=== PATIENT | female | born 1960 | race Caucasian/White ===

== ENCOUNTER 2016-03-01 09:26 | Day surgery (SDC) | payer OTHER ==
[2016-02-29 09:03] VITALS: BMI 36.9
[~2016-03-01 09:26] MED LIST: LACTATED RINGERS 1,000 ML IV SCH
[2016-03-01 09:36] VITALS: RESP 16; TEMP 86.3
[2016-03-01] MEDS ORDERED: LIDOCAINE 1% 20 ML VIAL (10MG/ML) FOR IV START INTRADERMA ONE (09:42)
[2016-03-01 09:43] LABS: Glucose,Whole Blood 207 mg/dL (75-99)
[2016-03-01] MEDS ORDERED: BUPIVACAINE (PF) 0.5% 30 ML VIAL ONE (09:48)
[2016-03-01] MEDS ORDERED: MIDAZOLAM 2 MG/2 ML VIAL ONE (09:48)
[2016-03-01] MEDS ORDERED: TRIAMCINOLONE ACETONIDE 40 MG/ML 1 ML VIAL ONE (09:48)
[2016-03-01] MEDS ORDERED: fentaNYL (PF) 50 MCG/ML 2 ML AMP ONE (09:48)
[2016-03-01] MEDS ORDERED: IV FLUID CONTINUATION 1,000 ML IV ONE (10:22)
--- NOTE | 2016-03-01 10:25 | FL ---
EXAMINATION TYPE: FL guided pain mgmt statistic DATE OF EXAM: 03/01/2016 10:22 AM HISTORY: Pain 15sec fluoro time, 5 images scanned.
[2016-03-01 10:30] LABS: Glucose,Whole Blood 176 mg/dL (75-99)
--- NOTE | 2016-03-01 10:48 | P.PCN ---
Date of Procedure: 03/01/16 Anesthesia: MAC Surgeon: Eric Serra Pathology: none sent Condition: stable Disposition: PACU Description of Procedure: PREOPERATIVE DIAGNOSIS: L2-L3, L3-L4, L4-L5, and L5-S1 spondylosis without myelopathy and facet arthropathy. POSTOPERATIVE DIAGNOSIS: L2-L3, L3-L4, L4-L5, and L5-S1 spondylosis without myelopathy and facet arthropathy. PROCEDURE DESCRIPTION: Patient presents for L2, L3, L4 and L5 diagnostic medial branch blocks under fluoroscopic guidance. The procedure is performed using fluoroscopic guidance during needle placement to assure proper position and maximize safety. ANESTHESIA: Local with 1% lidocaine. Conscious sedation with Versed/fentanyl. EBL: Minimal PROCEDURE INDICATION: Patient with lumbar facet arthropathy signs and symptoms, here for diagnostic medial branch block. Pt does not take any blood thinning medications. PROCEDURE DESCRIPTION: The patient was seen and identified in the preoperative area. Risks, benefits, complications, and alternatives were discussed with the patient (including but not limited to incomplete pain relief, bleeding, infection, nerve damage, and allergies to medications), the patient agreed to proceed with the procedure and signed the consent after all questions were answered. Patient was taken to the OR and time out was completed to verify proper patient, position, laterality of pain, and allergies. Pt was placed in the prone position and a pillow was placed under the abdomen to reduce lumbar lordosis. The lumbosacral area was prepped and draped in the usual sterile fashion. Using oblique fluoroscopy, the eye of the "Carlitos dog" of right L3 vertebral body, which corresponds to the path of the medial branch originating from the level above, which is L2 in this case, was identified. Subsequently, a 22-gauge 5-inch spinal needle was inserted under fluoroscopic guidance toward the eye of the "Carlitos dog" of the right L3 vertebral body, corresponding to the junction of the superior articular process and the transverse process of the pedicle of the same level. After needle tip confirmation on lateral view and after negative aspiration for CSF and blood and without paresthesias, 1 mL of a 8 ml solution of 0.5% preservative-free bupivacaine and 40 mg Kenalog was injected. Subsequently the needle was withdrawn intact and the same procedure was repeated for the right L3, right L4, right L5, left L2, left L3, left L4, and left L5 medial branches which together with right L3 medial branch correspond to the sensory innervation of the bilateral L3-L4, L4-L5, and L5-S1 facet joints. Needle was withdrawn intact after each injection. At the end of the procedure, the skin was cleansed and bandages were applied. COMPLICATIONS: None. DISPOSITION/PLAN: The patient taken to the recovery area after the procedure in a stable condition for observation. Patient was reexamined prior to discharge and there were no issues. Patient was discharged home, accompanied by an adult, after meeting discharged criteria. Discharge instructions were give to the patient by the staff. Patient was specifically instructed not to drive today and to rest for the rest of the day. Of note, the patient's fasting blood sugar was 209, and I decided to use only 40 mg Kenalog for this reason. Patient's starting BP was 203/103. I informed the patient in no uncertain terms that we will not do any further procedures for her at next visit if blood sugar >150 or systolic blood pressure >180. I informed patient regarding risks of stroke/NE during procedure secondary to pain with needle placement, and also risks of hyperglycemia with steroids. I then instructed patient to go to ER if she begins to have any symptoms of either , of which she verbalized understanding.
[2016-03-01 10:50] VITALS: BP 169/91; PULSE 90
== END 2016-03-01 11:01 | disposition home or self-care (01) ==
LOC: ORPAIN 09:26
PROVIDERS: ATTEND Anesthesiology
DX: G89.29 Other chronic pain (principal); M47.816 Spondylosis without myelopathy or radiculopathy, lumbar region; M46.96 Unspecified inflammatory spondylopathy, lumbar region; E11.9 Type 2 diabetes mellitus without complications; I10 Essential (primary) hypertension; F32.9 Major depressive disorder, single episode, unspecified; Z79.1 Long term (current) use of non-steroidal anti-inflammatories (NSAID); Z79.899 Other long term (current) drug therapy
CPT/HCPCS: 64493; 64494; 64495; J2250; J3301; J3010

== ENCOUNTER 2016-05-24 12:06 | Day surgery (SDC) | payer OTHER ==
[2016-05-23 09:47] VITALS: BMI 37.5
[2016-05-24 13:17] VITALS: TEMP 97.8
[2016-05-24 13:28] LABS: Glucose,Whole Blood 177 mg/dL (75-99)
[2016-05-24] MEDS ORDERED: LIDOCAINE 1% 20 ML VIAL (10MG/ML) FOR IV START INTRADERMA ONE (13:28)
[2016-05-24] MEDS ORDERED: TRIAMCINOLONE ACETONIDE 40 MG/ML 1 ML VIAL ONE (14:16)
[2016-05-24] MEDS ORDERED: fentaNYL (PF) 50 MCG/ML 2 ML AMP ONE ×2 (14:16)
[2016-05-24] MEDS ORDERED: MIDAZOLAM 2 MG/2 ML VIAL ONE (14:16)
[2016-05-24] MEDS ORDERED: BUPIVACAINE (PF) 0.5% 30 ML VIAL ONE (14:16)
--- NOTE | 2016-05-24 14:58 | P.PCN ---
Date of Procedure: 05/24/16 Procedure(s) Performed: PREOPERATIVE DIAGNOSIS: 1-Lumbar Spondylosis with Facet Arthropathy without myelopathy. 2- Lumber degenerative disc disease POSTOPERATIVE DIAGNOSIS: 1- Lumbar Spondylosis with Facet Arthropathy without myelopathy. 2- Lumber degenerative disc disease PROCEDURES : Left Radiofrequency thermocoagulation L2-3 ,, L3-L4, L4-L5, and L5 -S1 medial branch, with fluoroscopic guidance ANESTHESIA: IV sedation with versed 2 mg and fentaneyl 150 mcg and local infiltration with lidocaine 1% 6 ml EBL: Minimal PROCEDURE INDICATION: The patient with low back pain secondary to lumbar facet arthropathy who had more than 50% relief of her pain with previous diagnostic lumbar medial branch block with bupivacaine. PROCEDURE DESCRIPTION / TECHNIQUE: The patient was seen and identified in the preoperative area. Risks, benefits, complications, including but not limited to risk of infection ,bleeding , allergic reactions to the medications and no complete pain releife , and alternatives were discussed with the patient, the patient agreed to proceed with the procedure and signed the consent. IV was started. Vital signs remained stable throughout the procedure. Patient was taken to the OR and time out was completed. The patient was placed in the prone position on the procedure table. The lumber area was prepped and draped in the usual sterile fashion. . Vital signs were closely monitored during the procedure .IV sedation was used during the procedure to decrease patients anxiety. Using AP and then oblique fluoroscopy, the ``eye of the Carlitos dog corresponding to the connection between the superior and transverse articular processes of Left L2 ,L3, L4, and L5 were identified, marked, and localized with 1% lidocaine. Subsequently, a [id number] radiofrequency cannula with a 10-mm active tip was advanced guided by fluoroscopy to each of the ``eyes of the Carlitos dog at Left L2 , L3, L4, and L5. Each site then underwent sensory testing at 50 Hz and 0 to 1 volt and motor testing at 2.5 Hz and 0 to 3 volt with local stimulation, but no radicular symptoms down the legs. Thereafter the Left L2-3 , L3-4, L4-5, and L5-S1 sites underwent radiofrequency thermocoagulation at 80 degrees celsius for 90 seconds after injecting 0.5 ml of PF lidocaine 1%. then After the thermocoagulation done , 1 ml of the block solution containing Kenalog 40 mg and 4 ml of marain 0.5% was injected at the Left L2-3 , L3-4 , L4-5 , and L5-S1, levels after negative aspiration of CSF and blood and with no paresthesias. Cannulas were retracted while injecting lidocaine 1% until the needle is out. At the end of the procedure, the skin was cleansed and bandages were applied. COMPLICATIONS: No acute complications. DISPOSITION / PLANS: The patient was placed in a supine position and transferred to the recovery area in a stable condition for observation and was discharged from the recovery room after meeting discharge criteria. Home discharge instructions given to the patient by the staff. The patient was reexamined prior to discharge. The patient will schedule a follow up in the clinic in 2-4 weeks.
[2016-05-24] MEDS ORDERED: HYDROmorphone 1 MG/ML 1 ML SYRINGE IVP STA (15:01)
[2016-05-24] MEDS ORDERED: KETOROLAC 30 MG/ML 1 ML VIAL IVP STA (15:01)
[2016-05-24 15:07] VITALS: PULSE 75; RESP 16
[2016-05-24 15:38] VITALS: BP 143/77
[2016-05-24] MEDS ORDERED: IV FLUID CONTINUATION 1,000 ML IV ONE (15:41)
--- NOTE | 2016-05-24 16:18 | FL ---
3 Fluoroscopy INDICATION: Pain FINDINGS: Fluoroscopy time: 22 seconds. Images obtained: 0. IMPRESSIONS: 1. Documentation of fluoroscopy.
== END 2016-05-24 15:51 | disposition home or self-care (01) ==
LOC: ORPAIN 12:06
PROVIDERS: ATTEND Specialist
DX: M47.816 Spondylosis without myelopathy or radiculopathy, lumbar region (principal); M46.96 Unspecified inflammatory spondylopathy, lumbar region; M51.36 Other intervertebral disc degeneration, lumbar region
CPT/HCPCS: 64635; 64636; 99152; 99153; J2250; J3301; J3010; J1885; J1170

== ENCOUNTER 2016-07-05 08:27 | Day surgery (SDC) | payer OTHER ==
[2016-07-05] MEDS ORDERED: LIDOCAINE 1% 20 ML VIAL (10MG/ML) FOR IV START INTRADERMA ONE (08:48)
[2016-07-05] MEDS ORDERED: LACTATED RINGERS 1,000 ML IV SCH (09:00)
[2016-07-05 09:05] VITALS: TEMP 96.6
[2016-07-05 09:07] LABS: Glucose,Whole Blood 232 mg/dL (75-99)
[2016-07-05] MEDS ORDERED: BUPIVACAINE (PF) 0.5% 30 ML VIAL ONE (09:45)
[2016-07-05] MEDS ORDERED: MIDAZOLAM 2 MG/2 ML VIAL ONE (09:45)
[2016-07-05] MEDS ORDERED: fentaNYL (PF) 50 MCG/ML 2 ML AMP ONE (09:45)
--- NOTE | 2016-07-05 10:19 | P.PCN ---
Date of Procedure: 07/05/16 Preoperative Diagnosis: Lumbar spondylosis without myelopathy Postoperative Diagnosis: Same as above Procedure(s) Performed: Right lumbar medial branch radiofrequency ablation under fluoroscopic guidance Implants: Anesthesia: other (Moderate sedation) Surgeon: Daniel Valdes Pathology: none sent Condition: stable Disposition: PACU Indications for Procedure: Operative Findings: Description of Procedure: The patient was seen in the preoperative holding area consent was obtained then she was brought into the procedure room and placed in prone position. Skin was prepped with ChloraPrep and draped in a sterile manner. Lidocaine 1% was used to numb the skin up at the target points that were chosen as follows: For the L5 -S1 level which corresponds to the dorsal ramus of L5 the target point was at the superior medial aspect of the sacral ala on the right side of the spine on the AP view of fluoroscopy. And for the L2-L3 and L4 medial branches the target points were the connection between the transverse process and the superior articular process of L3 ,L4 ,and L5 vertebra respectively on the right oblique view of fluoroscopy. I used 18-gauge 150 mm in length with 10 mm curved active tip radiofrequency ablation needles for this procedure. AP, oblique, and lateral views of fluoroscopy were used to verify needle tip is position. Motor stimulation showed only local twitches of these needles with no radiation of twitching to the right lower extremity or to the groin anteriorly. Then I injected 1 mL of Marcaine 0.5% in each needle after that radiofrequency ablation started for 90 seconds at 80C and after the first session was done the needles were withdrawn by 1 or 2 mm and the bevels were turned 180 and then another session of ablation was started for 90 seconds at 80C. I did not use any steroids for this procedure today because of the patient's preop blood sugar was high at 230 mg/dL. Patient tolerated procedure well.
[2016-07-05] MEDS ORDERED: IV FLUID CONTINUATION 1,000 ML IV ONE (10:25)
[2016-07-05 10:34] LABS: Glucose,Whole Blood 220 mg/dL (75-99)
--- NOTE | 2016-07-05 10:57 | FL ---
EXAMINATION TYPE: FL guided pain mgmt statistic DATE OF EXAM: 07/05/2016 10:17 AM HISTORY: Pain RIGHT LUMBAR RF, 13 SEC FL TIME, 3 IMAGES SCANNED, .
[2016-07-05 11:04] VITALS: BP 154/76; PULSE 61; RESP 18
== END 2016-07-05 11:11 | disposition home or self-care (01) ==
LOC: ORPAIN 08:27
PROVIDERS: ATTEND Anesthesiology
DX: M47.816 Spondylosis without myelopathy or radiculopathy, lumbar region (principal)
CPT/HCPCS: 64635; 64636 ×3; 99152; J2250; J3010

== ENCOUNTER 2016-07-19 10:49 | Emergency (ER) | payer OTHER ==
--- NOTE | 2016-07-19 11:30 | ED ---
General Adult HPI - General Chief complaint: Recheck/Abnormal Lab/Rx Stated complaint: Lost Voice Time Seen by Provider: 07/19/16 11:12 Source: patient Mode of arrival: ambulatory Limitations: no limitations - History of Present Illness Initial comments: The patient is a 55-year-old female who presents to the ED with a chief complaint of dry mouth and loss of voice. The patient states that her symptoms have been present over the course the past 4 days. She states that she was started on clonidine recently to help with insomnia. The patient states that she has had chronic and persistent insomnia and that her PCP thought that this medication might help with her symptoms. The patient started this medication approximately 5 days ago. She states that she is concerned that this medication may be the cause of the symptoms that brought her into the ED today. The patient denies any cough. She denies any congestion. She denies any fevers or chills. The patient states that she has had hoarseness and loss of voice in the past associated with a cold but that her symptoms typically resolved within a day or two. She states the only recent surgery that she had was an operation on her lower back. The patient has had no history of thyroid problems nor has she had any prior thyroid operations. - Related Data Home Medications Medication Instructions Recorded Confirmed QUEtiapine [SEROquel] 400 mg PO HS 05/25/15 07/19/16 Carvedilol [Coreg] 25 mg PO BID 08/23/15 07/19/16 Suvorexant [Belsomra] 10 mg PO HS 08/23/15 07/19/16 tiZANidine [Zanaflex] 4 mg PO TID 08/23/15 07/19/16 Naproxen 500 mg PO Q12HR 11/16/15 07/19/16 Chlorthalidone [Hygroton] 25 mg PO QAM 01/10/16 07/19/16 Lisinopril 40 mg PO QAM 01/10/16 07/19/16 Sertraline [Zoloft] 25 mg PO QAM 01/10/16 07/19/16 Ergocalciferol (Vitamin D2) 50,000 unit PO DAILY 05/23/16 07/19/16 [Vitamin D2] Glimepiride [Amaryl] 2 mg PO AC-BRKFST 05/23/16 07/19/16 hydrALAZINE HCL [Apresoline] 25 mg PO BID 05/23/16 07/19/16 metFORMIN HCL [Glucophage] 500 mg PO BID 05/23/16 07/19/16 Allergies Allergy/AdvReac Type Severity Reaction Status Date / Time No Known Allergies Allergy Verified 07/19/16 11:14 Review of Systems ROS Statement: Those systems with pertinent positive or pertinent negative responses have been documented in the HPI. ROS Other: All systems not noted in ROS Statement are negative. Constitutional: Denies: fever, chills, weakness Eyes: Denies: vision change ENT: Reports: throat pain, other (vocal hoarseness and loss of voice). Denies: ear pain, dental pain, hearing loss, epistaxis, congestion Respiratory: Denies: cough, dyspnea, wheezes, hemoptysis, stridor Cardiovascular: Denies: chest pain, palpitations, dyspnea on exertion, orthopnea , edema, syncope Endocrine: Denies: fatigue Gastrointestinal: Denies: abdominal pain, nausea, vomiting, diarrhea, constipation Genitourinary: Denies: urgency, dysuria, frequency, hematuria Musculoskeletal: Denies: back pain Skin: Denies: rash, lesions Neurological: Denies: headache, weakness Psychiatric: Denies: anxiety, depression Past Medical History Past Medical History: Chest Pain / Angina, Diabetes Mellitus, Hypertension, Musculoskeletal Disorder, Osteoarthritis (OA), Pulmonary Embolus (PE), Rheumatoid Arthritis (RA), Vascular Disorder Additional Past Medical History / Comment(s): PE in Left lung d/t a right DVT 2007. ANEMIA. HEART MURMUR. CHRONIC BACK PAIN. RAYNAUDS. Chronic insomnia. SOB. 2 diabetes 08/29/15. Ddd chronic back pain. Multiple sclerosis History of Any Multi-Drug Resistant Organisms: None Reported Past Surgical History: Adenoidectomy, Cholecystectomy, Tonsillectomy, Tubal Ligation Additional Past Surgical History / Comment(s): CORY FUNDOPLASTY. REPAIR OF HOLE IN DIAPHRAGM. EGD. PAIN CINIC PROCEDURE Past Anesthesia/Blood Transfusion Reactions: No Reported Reaction Additional Past Anesthesia/Blood Transfusion Reaction / Comment(s): PT ADOPTED- FAMILY HX UNKNOWN Past Psychological History: Anxiety, Bipolar Additional Psychological History / Comment(s): taking stress management class and grief and loss class Smoking Status: Never smoker Past Alcohol Use History: None Reported Additional Past Alcohol Use History / Comment(s): Patient is a lifelong nonsmoker. She denies any medical marijuana, marijuana, street drug or alcohol use. She lives at home with her and [id number]. Past Drug Use History: None Reported - Past Family History Father Family Medical History: Unable to Obtain Additional Family Medical History / Comment(s): PT ADOPTED-FAMILY HX UNKNOWN Son(s) Additional Family Medical History / Comment(s): Patient has 3 children and 2 history of palsy. One child has no major medical problems. General Exam Limitations: no limitations General appearance: alert, in no apparent distress Head exam: Present: atraumatic, normocephalic Eye exam: Present: normal appearance, PERRL, EOMI Pupils: Present: normal accommodation ENT exam: Present: normal exam, normal oropharynx, mucous membranes dry, TM's normal bilaterally, normal external ear exam Neck exam: Present: normal inspection, full ROM. Absent: tenderness, meningismus, lymphadenopathy, thyromegaly Respiratory exam: Present: normal lung sounds bilaterally. Absent: respiratory distress, wheezes, rales, rhonchi, stridor Cardiovascular Exam: Present: regular rate, normal rhythm GI/Abdominal exam: Present: soft. Absent: distended, tenderness, guarding, rebound Extremities exam: Present: normal inspection, full ROM Back exam: Present: normal inspection, full ROM Neurological exam: Present: alert, oriented X3 Psychiatric exam: Present: normal affect, normal mood Skin exam: Present: warm, dry, intact Course Vital Signs 07/19/16 10:52 Temperature 97.5 F L Pulse Rate 88 Respiratory 18 Rate Blood Pressure 208/107 O2 Sat by Pulse 97 Oximetry Medical Decision Making - Medical Decision Making Patient is a 55-year-old female who presents to ED with a chief complaint of loss of voice. She states that her symptoms of the present over the course the past 4 days. She started taking clonidine about 5 days ago. She is concerned that her symptoms may be related to this medication. Patient denies any congestion, cough. She does cite dry mouth. The patient does not have any symptoms suspicious for laryngitis. Will contact pharmacist regarding possibility of side effects that could be causing patient's symptoms. 11:50 AM Spoke with Pharmacist who indicates that xerostomia is a common side effect of clonidine. I suspect that this is likely what is causing the patient's symptoms. I counseled the patient to stop taking clonidine until she is able follow up with her PCP and find an alternative medication for insomnia. I have counseled the patient that if she would like to continue taking her clonidine that she can try to use throat lozenges or chewing gum to try to stimulate salivary flow. However, I believe that stopping clonidine is the best option overall for the patient. I have encouraged the patient to return to the ED should she have any additional difficulty with swallowing or developed fever or chills. I've answered all the patient's questions to her satisfaction. Disposition Clinical Impression: Medication side effect, Xerostomia Disposition: HOME SELF-CARE Condition: Good Instructions: Clonidine (By mouth), Dry Mouth (ED) Additional Instructions: The symptoms that brought you into the ED today are likely secondary to clonidine, the medication that you're currently taking. This can cause you to have decreased production of saliva. This is likely the cause of your hoarse voice and difficulty with swallowing. I recommend that you discontinue this medication until you're able to follow up with your primary care physician. Once you follow up with your primary care physician, you can discuss other potential medical options to treat her insomnia. If you would like to continue on this medication, I would recommend that you try using throat lozenges or chewing gum to try to stimulate salivary flow. Please return to the ED should your symptoms worsen. Referrals: Mimi Solomon III, MD [Primary Care Provider] - 1-2 days (Please follow up with Dr. Solomon regarding your visit to the ED today. He can help to adjust your medications to help minimize potential side effects) Time of Disposition: 11:50
[2016-07-19 12:01] VITALS: BP 200/99; PULSE 84; RESP 20; TEMP 98.9
== END 2016-07-19 12:01 | disposition home or self-care (01) ==
LOC: EC 10:49
DX: K11.7 Disturbances of salivary secretion (principal); T46.5X5A Adverse effect of other antihypertensive drugs, initial encounter; R68.2 Dry mouth, unspecified; I10 Essential (primary) hypertension; E11.9 Type 2 diabetes mellitus without complications; F31.9 Bipolar disorder, unspecified; F51.04 Psychophysiologic insomnia; M06.9 Rheumatoid arthritis, unspecified; F41.9 Anxiety disorder, unspecified; Z79.1 Long term (current) use of non-steroidal anti-inflammatories (NSAID); Z79.84 Long term (current) use of oral hypoglycemic drugs; Z79.899 Other long term (current) drug therapy
CPT/HCPCS: 99283

== ENCOUNTER 2016-08-27 14:56 | Inpatient (IN) | payer OTHER ==
[2016-08-27] MEDS ORDERED: ASPIRIN 81 MG CHEW PO STA (15:24)
--- NOTE | 2016-08-27 15:28 | ED ---
Chest Pain HPI - General Chief Complaint: Chest Pain Stated Complaint: Chest Pain Source: patient Mode of arrival: wheelchair Limitations: no limitations - History of Present Illness Initial Comments: Patient is a 56-year-old female present for evaluation for left-sided chest pressure radiating down to her left arm. Past medical history as below. Patient has several risk factors for ACS including diabetes, hypertension, high cholesterol. She had a negative stress test one year ago. She stated that she' s been getting intermittent chest pressure over the last 3 months. Over the past week his become more frequent and severe. Today she stated that she had severe chest pressure. Worsen she's ever had before. She didn't take an aspirin. She states that she is having the chest pressure at rest. She's had a heart catheterization in 2011 with no stents. She has associated diaphoresis and nausea. She currently denies fever, chills, headache, changes of vision, URI symptoms, shortness breath, cough, vomiting, diarrhea, pain or burning with urination. - Related Data Home Medications Medication Instructions Recorded Confirmed QUEtiapine [SEROquel] 400 mg PO HS 05/25/15 08/27/16 Carvedilol [Coreg] 50 mg PO BID 08/23/15 08/27/16 Naproxen 500 mg PO Q12HR 11/16/15 08/27/16 Chlorthalidone [Hygroton] 25 mg PO QAM 01/10/16 08/27/16 Lisinopril 40 mg PO QAM 01/10/16 08/27/16 Sertraline [Zoloft] 50 mg PO QAM 01/10/16 08/27/16 Glimepiride [Amaryl] 2 mg PO AC-BRKFST 05/23/16 08/27/16 hydrALAZINE HCL [Apresoline] 25 mg PO BID 05/23/16 08/27/16 metFORMIN HCL [Glucophage] 500 mg PO BID 05/23/16 08/27/16 Cholecalciferol (Vitamin D3) 2,000 unit PO DAILY 08/27/16 08/27/16 [Vitamin D3] cloNIDine HCL [Catapres] 0.2 mg PO HS 08/27/16 08/27/16 sitaGLIPtin [Januvia] 25 mg PO DAILY 08/27/16 08/27/16 Allergies Allergy/AdvReac Type Severity Reaction Status Date / Time tizanidine AdvReac Hallucinati Verified 08/27/16 16:27 ons Review of Systems ROS Statement: Those systems with pertinent positive or pertinent negative responses have been documented in the HPI. ROS Other: All systems not noted in ROS Statement are negative. Past Medical History Past Medical History: Chest Pain / Angina, Diabetes Mellitus, Hypertension, Musculoskeletal Disorder, Osteoarthritis (OA), Pulmonary Embolus (PE), Rheumatoid Arthritis (RA), Vascular Disorder Additional Past Medical History / Comment(s): PE in Left lung d/t a right DVT 2007. ANEMIA. HEART MURMUR. CHRONIC BACK PAIN. RAYNAUDS. Chronic insomnia. SOB. 2 diabetes 08/29/15. Ddd chronic back pain. Multiple sclerosis History of Any Multi-Drug Resistant Organisms: None Reported Past Surgical History: Adenoidectomy, Cholecystectomy, Tonsillectomy, Tubal Ligation Additional Past Surgical History / Comment(s): CORY FUNDOPLASTY. REPAIR OF HOLE IN DIAPHRAGM. EGD. PAIN CINIC PROCEDURE Past Anesthesia/Blood Transfusion Reactions: No Reported Reaction Additional Past Anesthesia/Blood Transfusion Reaction / Comment(s): PT ADOPTED- FAMILY HX UNKNOWN Past Psychological History: Anxiety, Bipolar Smoking Status: Never smoker Past Alcohol Use History: None Reported Past Drug Use History: None Reported - Past Family History Father Family Medical History: Unable to Obtain Additional Family Medical History / Comment(s): PT ADOPTED-FAMILY HX UNKNOWN Son(s) Additional Family Medical History / Comment(s): Patient has 3 children and 2 history of palsy. One child has no major medical problems. General Exam Limitations: no limitations General appearance: alert, in no apparent distress, other (Patient appears worried. No diaphoresis at this time.) Head exam: Present: atraumatic, normocephalic, normal inspection Eye exam: Present: normal appearance, PERRL, EOMI. Absent: scleral icterus, conjunctival injection, periorbital swelling ENT exam: Present: normal exam, mucous membranes moist Neck exam: Present: normal inspection. Absent: tenderness, meningismus, lymphadenopathy Respiratory exam: Present: normal lung sounds bilaterally. Absent: respiratory distress, wheezes, rales, rhonchi, stridor Cardiovascular Exam: Present: regular rate, normal rhythm, normal heart sounds, other (Normal S1 and S2. No obvious murmurs. Distal pulses intact.). Absent: systolic murmur, diastolic murmur, rubs, gallop, clicks GI/Abdominal exam: Present: soft, normal bowel sounds, other (Abdomen is soft and nontender.). Absent: distended, tenderness, guarding, rebound, rigid Extremities exam: Present: normal inspection, full ROM, normal capillary refill. Absent: tenderness, pedal edema, joint swelling, calf tenderness Back exam: Present: normal inspection Neurological exam: Present: alert, oriented X3, CN II-XII intact Psychiatric exam: Present: normal affect, normal mood Skin exam: Present: warm, dry, intact, normal color. Absent: rash Course Vital Signs 08/27/16 08/27/16 08/27/16 15:05 16:04 16:47 Temperature 98.3 F 98.5 F Pulse Rate 85 78 85 Respiratory 18 18 18 Rate Blood Pressure 220/133 183/89 160/80 O2 Sat by Pulse 97 97 96 Oximetry Chest Pain [facility] 1525: Patient is a 56-year-old female who presents for evaluation for left- sided chest pressure radiating down her left arm with associated nausea and diaphoresis. Has been intermittent over the last 3 months but seems to have worsened over the past week. Did not take an aspirin at home. Risk factors for ACS include diabetes, hypertension, high cholesterol, age. Reviewed EKG at 1525 which revealed normal sinus rhythm at 80. [place] 180. QRS 82. QTc 454. EKG is similar in appearance to the one performed on 08/23/2015. Heart score of 5. 1553: Repeat EKG. Sinus at 80. [place] 184. QRS 82. QTc 452. No ST changes. Similar to first EKG at 1525. Will give a dose of sublingual nitro. 1625: Notified of elevated troponin at 0.732. Rest of labs WNL. Continues to have CP. Going to receive her SL nitro now. Pg to cardiology for further discussion. 1635: Spoke with Dr. Marino -discussed the patient's history, vital signs, laboratory findings. Discussed EKG findings. Receiving nitro while on the phone. Also recommended 2.5 mg IV Lopressor. Goal SBP 160. ORder D-dimer. Will call back in 20 minutes. 1643: Patient's chest pain nearly resolved. Blood pressure now 160 systolic. Holding lopressor. 1705: Spoke with Dr. Marino. Discussed response to nitroglycerin. Recommending 25 mg by mouth Lopressor and to be continued 3 times a day. Nothing by mouth at midnight. Pg to admitting physician. 1730: Will place admission to Dr. Hathaway's group Disposition Clinical Impression: NSTEMI (non-ST elevated myocardial infarction) Disposition: ADMITTED IP TO THIS HOSP Condition: Good Referrals: Mimi Solomon III, MD [Primary Care Provider] - 1-2 days Decision to Admit Reason: Admit from EC
[2016-08-27 15:44] LABS: Basophils # (A) 0.1 k/uL (0-0.2); Basophils % (A) 1 %; CH 31.3; Eosinophils # (A) 0.2 k/uL (0-0.7); Eosinophils % (A) 2 %; HCT 45.2 % (34.0-46.0); HDW 2.66; HGB 15.4 gm/dL (11.4-16.0); Luc # (Auto) 0.14; Luc % (Auto) 2; Lymphocytes # (A) 2.7 k/uL (1.0-4.8); Lymphocytes % (A) 31 %; MCH 30.7 pg (25.0-35.0); MCHC 34.1 g/dL (31.0-37.0); Mean Platelet Volume 7.4; Monocytes # (A) 0.4 k/uL (0-1.0); Monocytes % (A) 5 %; Neutrophils # (A) 5.3 k/uL (1.3-7.7); Neutrophils % (A) 61 %; RBC 5.03 m/uL (3.80-5.40); RDW 12.9 % (11.5-15.5); WBC 8.8 k/uL (3.8-10.6); WBC (Perox) 8.42
[2016-08-27 15:59] LABS: ALT 171 U/L (9-52); AST 100 U/L (14-36); Alkaline Phosphatase 218 U/L (38-126); Anion Gap 11 mmol/L; Blood Urea Nitrogen 18 mg/dL (7-17); Calcium 9.2 mg/dL (8.4-10.2); Carbon Dioxide 22 mmol/L (22-30); Chloride 104 mmol/L (98-107); Glucose 328 mg/dL (74-99); Magnesium 1.7 mg/dL (1.6-2.3); Non-African American GFR(MDRD) >60 (>60 ml/min/1.73 sqM); Potassium 4.3 mmol/L (3.5-5.1); Sodium 137 mmol/L (137-145); Total Bilirubin 0.3 mg/dL (0.2-1.3); Total Protein 6.7 g/dL (6.3-8.2)
[2016-08-27 16:00] LABS: Partial Thromboplastin Time 23.1 sec (22.0-30.0); Prothrombin Time 10.6 sec (9.0-12.0)
[2016-08-27 16:18] LABS: Creatine Kinase MB 1.3 ng/mL (0.0-2.4)
--- NOTE | 2016-08-27 16:18 | XR ---
EXAMINATION TYPE: XR chest 1V portable DATE OF EXAM: 08/27/2016 COMPARISON: Chest x-ray August 23, 2015. HISTORY: Intermittent chest pain with left arm numbness. TECHNIQUE: Single AP portable frontal upright view of the chest is obtained. FINDINGS: Somewhat low lung volumes are redemonstrated. There is no focal air space opacity, pleural effusion, or pneumothorax seen. The cardiac silhouette size is stable and upper limits of normal. The osseous structures are intact. IMPRESSION: No acute process. No significant change from prior.
[2016-08-27 16:19] LABS: Troponin I 0.732 ng/mL (0.000-0.034)
[2016-08-27] MEDS: NITROGLYCERIN SL TABS 0.4 MG TAB SUBLINGUAL STA ×2 (16:30→18:02)
[2016-08-27] MEDS ORDERED: METOPROLOL TARTRATE 5 MG/5 ML VIAL IVP STA (16:34)
[2016-08-27] MEDS ORDERED: HEPARIN SODIUM,PORCINE/D5W PMX 25,000 UNIT in DEXTROSE/WATER 1 500ML.BAG IV STA (16:40)
[2016-08-27] MEDS ORDERED: HEPARIN SODIUM,PORCINE 5,000 UNIT/ML 1 ML VIAL IV STA (16:40)
[2016-08-27] MEDS ORDERED: NALOXONE 0.4 MG/ML 1 ML VIAL IV PRN (17:28)
[2016-08-27] MEDS ORDERED: METOPROLOL TARTRATE 25 MG TAB PO STA (17:32)
[2016-08-27 19:09] LABS: Glucose,Whole Blood 251 mg/dL (75-99)
[2016-08-27] MEDS ORDERED: cloNIDine HCL 0.2 MG TAB PO SCH (21:00)
[2016-08-27] MEDS: NITROGLYCERIN SL TABS 0.4 MG TAB SUBLINGUAL ONE ×2 (21:10→21:16)
[2016-08-27] MEDS: CHLORTHALIDONE 25 MG TAB PO SCH (21:10)
[2016-08-27] MEDS: LISINOPRIL 20 MG TAB PO SCH (21:10)
[2016-08-27] MEDS: CARVEDILOL 12.5 MG TAB PO SCH (21:11)
[2016-08-27] MEDS: hydrALAZINE HCL 25 MG TAB PO SCH (21:11)
[2016-08-27 21:37] VITALS: BMI 38.0
[2016-08-27] MEDS ORDERED: METOPROLOL TARTRATE 25 MG TAB PO SCH (22:00)
[2016-08-27 22:06] LABS: Hemoglobin A1C 11.3 % (4.2-6.1)
[2016-08-27] MEDS ORDERED: NITROGLYCERIN SL TABS 0.4 MG TAB SUBLINGUAL ONE (22:17)
[2016-08-27 22:46] LABS: Creatine Kinase MB 1.2 ng/mL (0.0-2.4)
[2016-08-27 22:48] LABS: Troponin I 0.679 ng/mL (0.000-0.034)
[2016-08-27] MEDS: QUEtiapine 400 MG TAB PO SCH (22:52)
[2016-08-27] MEDS: INSULIN LISPRO (humaLOG) 300 UNIT/3 ML VIAL SQ SCH (22:54)
[2016-08-27] MEDS: NITROGLYCERIN OINT 1 INCH/GM PACKET TOPICAL SCH (22:54)
[2016-08-27] MEDS: metFORMIN 500 MG TAB PO SCH (22:54)
[2016-08-27 22:56] LABS: Glucose,Whole Blood 332 mg/dL (75-99)
[2016-08-27] MEDS ORDERED: HEPARIN SODIUM,PORCINE 5,000 UNIT/ML 1 ML VIAL IV PRN (23:34)
[2016-08-27] MEDS ORDERED: HEPARIN SODIUM,PORCINE/D5W PMX 25,000 UNIT in DEXTROSE/WATER 1 500ML.BAG IV SCH (23:45)
[2016-08-28 05:48] LABS: Glucose,Whole Blood 293 mg/dL (75-99)
[2016-08-28] MEDS: GLIMEPIRIDE 2 MG TAB PO SCH ×2 (06:30→13:16)
[2016-08-28] MEDS: INSULIN LISPRO (humaLOG) 300 UNIT/3 ML VIAL SQ SCH ×4 (06:31→21:46)
[2016-08-28] MEDS ORDERED: NITROGLYCERIN SL TABS 0.4 MG TAB SUBLINGUAL ONE ×3 (09:13→11:59)
[2016-08-28] MEDS ORDERED: ASPIRIN 81 MG CHEW PO SCH (09:30)
[2016-08-28] MEDS ORDERED: ASPIRIN 325 MG TAB PO STA (09:33)
[2016-08-28] MEDS: NITROGLYCERIN OINT 1 INCH/GM PACKET TOPICAL SCH (09:40)
[2016-08-28] MEDS: CARVEDILOL 12.5 MG TAB PO SCH ×2 (09:40→21:45)
[2016-08-28] MEDS: metFORMIN 500 MG TAB PO SCH (09:41)
[2016-08-28] MEDS: hydrALAZINE HCL 25 MG TAB PO SCH ×2 (09:41→21:45)
[2016-08-28] MEDS: LISINOPRIL 20 MG TAB PO SCH (09:41)
[2016-08-28] MEDS: CHLORTHALIDONE 25 MG TAB PO SCH (09:42)
[2016-08-28] MEDS ORDERED: LIDOCAINE 2% INJ 20 MG/ML (20 ML MDV) ONE (10:29)
[2016-08-28] MEDS ORDERED: HEPARIN SODIUM 1,000 UN/ML (10ML VL) ONE (10:29)
[2016-08-28] MEDS ORDERED: VERAPAMIL 2.5 MG/ML 2 ML AMP ONE (10:30)
[2016-08-28] MEDS ORDERED: diphenhydrAMINE 50 MG/ML 1 ML VIAL ONE (10:37)
[2016-08-28] MEDS ORDERED: MIDAZOLAM 2 MG/2 ML VIAL ONE (10:37)
[2016-08-28] MEDS ORDERED: SODIUM CHLORIDE 0.9% 500 ML IV ONE (10:42)
--- NOTE | 2016-08-28 10:54 | ECHOF ---
Referral Reason:nstemi MEASUREMENTS -------- HEIGHT: 170.2 cm WEIGHT: 109.8 kg BP: 152/83 IVSd: 0.9 cm (0.6 - 1.1) LVIDd: 4.3 cm (3.9 - 5.3) LVPWd: 1.0 cm (0.6 - 1.1) IVSs: 1.1 cm LVIDs: 2.7 cm LVPWs: 1.3 cm Ao Diam: 3.1 cm (2.0 - 3.7) AV Cusp: 2.0 cm (1.5 - 2.6) LA Diam: 2.2 cm (2.7 - 3.8) MV E Horacio: 0.77 m/s MV DecT: 217 ms MV A Horacio: 0.62 m/s MV E/A Ratio: 1.25 RAP: 5.00 mmHg RVSP: 16.12 mmHg FINDINGS -------- Sinus rhythm. This was a technically good study. Left ventricular wall thickness is normal. Overall left ventricular systolic function is mildly impaired with, an EF between 45 - 50 %. [place] Hypokinesis. The right ventricle is normal in size and function. The left atrium is normal in size. The right atrium is normal in size. The aortic valve is trileaflet, and appears structurally normal. No aortic stenosis or regurgitation. The mitral valve is normal. There is trace mitral regurgitation. Trace tricuspid regurgitation present. There is no evidence of pulmonary hypertension. The right ventricular systolic pressure, as measured by Doppler, is 16.12mmHg. There is no pulmonic regurgitation present. The aortic root size is normal. There is no pericardial effusion. CONCLUSIONS -------- 1. Sinus rhythm. 2. There is no evidence of pulmonary hypertension. 3. There is no pulmonic regurgitation present. 4. The aortic root size is normal. 5. There is no pericardial effusion. 6. This was a technically good study. 7. Left ventricular wall thickness is normal. 8. Overall left ventricular systolic function is mildly impaired with, an EF between 45 - 50 %. 9. [place] Hypokinesis. 10. The left atrium is normal in size. 11. The aortic valve is trileaflet, and appears structurally normal. No aortic stenosis or regurgitation. 12. There is trace mitral regurgitation. 13. Trace tricuspid regurgitation present. [employer]PERVISOR: Ivet Valencia RDCS
[2016-08-28] MEDS ORDERED: diphenhydrAMINE 50 MG/ML 1 ML VIAL IVP ONE (11:08)
[2016-08-28] MEDS ORDERED: MIDAZOLAM 2 MG/2 ML VIAL IV ONE (11:08)
[2016-08-28] MEDS: SODIUM CHLORIDE 0.9% 1,000 ML IV SCH ×2 (11:08→21:46)
[2016-08-28] MEDS ORDERED: fentaNYL (PF) 50 MCG/ML 2 ML AMP ONE (11:13)
[2016-08-28] MEDS ORDERED: fentaNYL (PF) 50 MCG/ML 2 ML AMP IV ONE (11:15)
[2016-08-28] MEDS ORDERED: LIDOCAINE 2% INJ 20 MG/ML SQ ONE (11:15)
[2016-08-28] MEDS ORDERED: VERAPAMIL SYRINGE (5 MG/10 ML) INTRAARTER ONE (11:23)
[2016-08-28] MEDS ORDERED: NITROGLYCERIN 1000MCG/10ML SYRINGE INTRACORON ONE ×2 (11:45→12:11)
[2016-08-28] MEDS ORDERED: BIVALIRUDIN 250 MG in SODIUM CHLORIDE 0.9% 50 ML IV ONE (11:50)
[2016-08-28] MEDS ORDERED: BIVALIRUDIN BOLUS 250 MG/50 ML IV ONE (11:50)
[2016-08-28] MEDS ORDERED: IOHEXOL 350 MG/ML 125ML BOTTLE INJ ONE (12:17)
[2016-08-28] MEDS ORDERED: PRASUGREL 10 MG TAB ONE (12:21)
[2016-08-28] MEDS ORDERED: PRASUGREL 10 MG TAB PO ONE (12:32)
[2016-08-28] MEDS ORDERED: NITROGLYCERIN SL TABS 0.4 MG TAB SUBLINGUAL PRN (12:34)
[2016-08-28] MEDS ORDERED: ZOLPIDEM 5 MG TAB PO PRN (12:34)
[2016-08-28] MEDS ORDERED: RX INFO: IV CONTRAST WAS GIVEN 1 EACH MISC MISCELLANE PRN (12:34)
[2016-08-28] MEDS ORDERED: ATROPINE SULFATE 0.1 MG/ML 10ML SYRINGE IV PRN (12:34)
[2016-08-28] MEDS ORDERED: MAG HYDROX/AL HYDROX/SIMETH 30 ML CUP PO PRN (12:34)
[2016-08-28] MEDS ORDERED: HYDROmorphone 2 MG/ML 1 ML SYRINGE ONE (12:39)
[2016-08-28] MEDS ORDERED: HYDROmorphone 2 MG/ML 1 ML SYRINGE IV ONE (12:41)
--- NOTE | 2016-08-28 13:05 | P.CRDCN ---
History of Present Illness Consult date: 08/28/16 Reason for Consult (text): NSTEMI Chief complaint: Chest Heaviness History of present illness: This pleasant 56-year-old female patient with a known history of hypertension, diabetes, PE in 2007 in the setting of acute lower extremity injury, prior heart catheterization in 2011 done in [place] with no stents at that time, patient is unclear regarding results. Presented to the emergency department with complaints of left-sided chest discomfort that she described as someone sitting on her chest, radiated down her left arm she also had nausea and diaphoresis at that time. O2 values showed elevated troponin of 0.732, 0.679 and 0.478 consistent with non-ST elevated OK. Patient's chest x-ray showed no acute cardiopulmonary process. Patient was started on heparin drip and Nitropaste and had done well through the night. This a.m., patient developed sharp left-sided chest discomfort without associated symptoms, minimal relief with nitro at that time. Blood pressure was also noted to be low in the 80s to low 100s systolically. She was given a 250 mL bolus with some improvement. Patient was seen and examined and echocardiogram was reviewed that showed an ejection fraction of 45-50% with apical hypokinesis. Hg done this morning shows ST-T wave abnormalities in anterolateral leads. Past Medical History Past Medical History: Chest Pain / Angina, Diabetes Mellitus, Hypertension, Musculoskeletal Disorder, Osteoarthritis (OA), Pulmonary Embolus (PE), Rheumatoid Arthritis (RA), Vascular Disorder Additional Past Medical History / Comment(s): PE in Left lung d/t a right DVT 2007. ANEMIA. HEART MURMUR. CHRONIC BACK PAIN. RAYNAUDS. Chronic insomnia. SOB. 2 diabetes 08/29/15. Ddd chronic back pain. Multiple sclerosis History of Any Multi-Drug Resistant Organisms: None Reported Past Surgical History: Adenoidectomy, Cholecystectomy, Tonsillectomy, Tubal Ligation Additional Past Surgical History / Comment(s): CORY FUNDOPLASTY. REPAIR OF HOLE IN DIAPHRAGM. EGD. PAIN CINIC PROCEDURE Past Anesthesia/Blood Transfusion Reactions: No Reported Reaction Additional Past Anesthesia/Blood Transfusion Reaction / Comment(s): PT ADOPTED- FAMILY HX UNKNOWN Past Psychological History: Anxiety, Bipolar Additional Psychological History / Comment(s): taking stress management class and grief and loss class Smoking Status: Never smoker - Past Family History Father Family Medical History: Unable to Obtain Additional Family Medical History / Comment(s): PT ADOPTED-FAMILY HX UNKNOWN Son(s) Additional Family Medical History / Comment(s): Patient has 3 children and 2 history of cerebral palsy. One child has no major medical problems. Medications and Allergies Home Medications Medication Instructions Recorded Confirmed Type QUEtiapine [SEROquel] 400 mg PO HS 05/25/15 08/27/16 History Carvedilol [Coreg] 50 mg PO BID 08/23/15 08/27/16 History Naproxen 500 mg PO Q12HR 11/16/15 08/27/16 History Chlorthalidone [Hygroton] 25 mg PO QAM 01/10/16 08/27/16 History Lisinopril 40 mg PO QAM 01/10/16 08/27/16 History Sertraline [Zoloft] 50 mg PO QAM 01/10/16 08/27/16 History Glimepiride [Amaryl] 2 mg PO AC-BRKFST 05/23/16 08/27/16 History hydrALAZINE HCL [Apresoline] 25 mg PO BID 05/23/16 08/27/16 History metFORMIN HCL [Glucophage] 500 mg PO BID 05/23/16 08/27/16 History Cholecalciferol (Vitamin D3) 2,000 unit PO DAILY 08/27/16 08/27/16 History [Vitamin D3] cloNIDine HCL [Catapres] 0.2 mg PO HS 08/27/16 08/27/16 History sitaGLIPtin [Januvia] 25 mg PO DAILY 08/27/16 08/27/16 History Allergies Allergy/AdvReac Type Severity Reaction Status Date / Time tizanidine AdvReac Hallucinati Verified 08/27/16 16:27 ons Physical Exam Vitals: Vital Signs Temp Pulse Pulse Resp BP BP BP 08/28/16 09:17 68 105/55 08/28/16 09:00 68 18 94/43 08/28/16 08:50 08/28/16 08:35 88/48 88/50 08/28/16 08:00 97.6 F 60 16 88/48 08/28/16 04:00 97.0 F L 58 L 16 90/55 08/27/16 23:19 73 16 08/27/16 22:50 73 16 152/83 08/27/16 21:19 138/90 08/27/16 21:13 167/107 08/27/16 21:00 158/97 08/27/16 20:00 97.1 F L 81 14 172/92 08/27/16 19:32 97.7 F 80 18 175/109 08/27/16 19:05 98.5 F 77 18 160/83 08/27/16 18:53 77 18 160/83 08/27/16 18:18 78 18 199/122 08/27/16 18:02 76 18 199/122 08/27/16 17:47 134/88 08/27/16 16:47 85 18 160/80 08/27/16 16:04 98.5 F 78 18 183/89 08/27/16 15:05 98.3 F 85 18 220/133 Pulse Ox 08/28/16 09:17 08/28/16 09:00 08/28/16 08:50 96 08/28/16 08:35 08/28/16 08:00 95 08/28/16 04:00 96 08/27/16 23:19 08/27/16 22:50 98 08/27/16 21:19 08/27/16 21:13 08/27/16 21:00 08/27/16 20:00 97 08/27/16 19:32 98 08/27/16 19:05 99 08/27/16 18:53 99 08/27/16 18:18 08/27/16 18:02 97 08/27/16 17:47 08/27/16 16:47 96 08/27/16 16:04 97 08/27/16 15:05 97 Intake and Output 08/27/16 08/28/16 08/28/16 22:59 06:59 14:59 Intake Total 300 146.673 255 Output Total 200 Balance 300 146.673 55 Intake: IV 140 255 0.9 140 Amount of Fluid Infused ( 300 ml) Intake, IV Titration 6.673 Amount Heparin Sodium,Porcine/ 6.673 D5w Pmx 25,000 unit In Dextrose/Water 1 500ml. bag @ 9.1 UNITS/KG/HR 20. 02 mls/hr IV .Q24H [facility] Rx #:[id number] Oral 0 Output: Urine 200 Other: Voiding Method Toilet Toilet Weight 110 kg 110 kg PHYSICAL EXAMINATION: HEENT: Head is atraumatic, normocephalic. Pupils equal, round. Neck is supple. There is no elevated jugular venous pressure. HEART EXAMINATION: Heart sounds regular, S1 and S2 normal. No murmur or gallop heard. CHEST EXAMINATION: Lungs are clear to auscultation and precussion. No chest wall tenderness is noted on palpation or with deep breathing. ABDOMEN: Soft, nontender. Bowel sounds are heard. No organomegaly noted. EXTREMITIES: 2+ peripheral pulses with no evidence of peripheral edema and no calf tenderness noted. NEUROLOGIC patient is awake, alert and oriented x3. . Results 08/27/16 15:32 08/27/16 15:32 Cardiac Enzymes 08/27/16 08/27/16 08/27/16 Range/Units 15:32 15:32 21:27 AST 100 H (14-36) U/L CK-MB (CK-2) 1.3 1.2 (0.0-2.4) ng/mL Troponin I 0.732 H* 0.679 H* (0.000-0.034) ng/mL 08/28/16 Range/Units 06:29 AST (14-36) U/L CK-MB (CK-2) (0.0-2.4) ng/mL Troponin I 0.478 H* (0.000-0.034) ng/mL Coagulation 08/27/16 08/27/16 08/28/16 Range/Units 15:32 22:50 06:29 PT 10.6 (9.0-12.0) sec APTT 23.1 32.0 H 60.4 H (22.0-30.0) sec CBC 08/27/16 Range/Units 15:32 WBC 8.8 (3.8-10.6) k/uL RBC 5.03 (3.80-5.40) m/uL Hgb 15.4 (11.4-16.0) gm/dL Hct 45.2 (34.0-46.0) % Plt Count 245 (150-450) k/uL Comprehensive Metabolic Panel 08/27/16 Range/Units 15:32 Sodium 137 (137-145) mmol/L Potassium 4.3 (3.5-5.1) mmol/L Chloride 104 (98-107) mmol/L Carbon Dioxide 22 (22-30) mmol/L BUN 18 H (7-17) mg/dL Creatinine 0.62 (0.52-1.04) mg/dL Glucose 328 H (74-99) mg/dL Calcium 9.2 (8.4-10.2) mg/dL AST 100 H (14-36) U/L ALT 171 H (9-52) U/L Alkaline Phosphatase 218 H (38-126) U/L Total Protein 6.7 (6.3-8.2) g/dL Albumin 4.2 (3.5-5.0) g/dL Current Medications Generic Name Dose Route Start Last Admin Trade Name Freq PRN Reason Stop Dose Admin Al Hydroxide/Mg Hydroxide 30 ml 08/28/16 12:34 Maalox PO Q4HR PRN Heartburn Aspirin 81 mg 08/29/16 09:00 Aspirin PO DAILY [facility] Atorvastatin Calcium 80 mg 08/28/16 21:00 Lipitor PO HS [facility] Atropine Sulfate 0.5 mg 08/28/16 12:34 Atropine IV ONCE PRN Symptomatic Bradycardia Carvedilol 25 mg 08/28/16 12:33 Coreg PO BID [facility] Cholecalciferol 2,000 unit 08/28/16 09:00 Vitamin D3 PO DAILY [facility] Glimepiride 2 mg 08/28/16 07:30 Amaryl PO AC-BRKFST [facility] Hydralazine HCl 25 mg 08/27/16 21:00 08/28/16 09:41 Apresoline PO Not Given BID [facility] Sodium Chloride 1,000 mls @ 75 mls/hr 08/28/16 09:45 08/28/16 11:08 Saline 0.9% IV 08/29/16 03:46 150 mls .[id number] ALHAJI Administration Insulin Human Lispro 0 unit 08/27/16 21:00 08/28/16 06:31 Humalog SQ 7 unit ACHS [facility] Administration Protocol Linagliptin 5 mg 08/28/16 09:00 Tradjenta PO DAILY [facility] Lisinopril 40 mg 08/27/16 20:00 08/28/16 09:41 Zestril PO Not Given QAM [facility] Miscellaneous Information 1 each 08/28/16 12:34 Rx Info: Iv Contrast Was Given MISCELLANE 08/30/16 12:34 DAILY PRN Per Protocol Naloxone HCl 0.2 mg 08/27/16 17:28 Narcan IV Q2M PRN Opioid Reversal Nitroglycerin 0.4 mg 08/28/16 12:34 Nitrostat SUBLINGUAL Q5M PRN Chest Pain Prasugrel 10 mg 08/29/16 09:00 Effient PO DAILY ALHAJI Quetiapine Fumarate 400 mg 08/27/16 21:00 08/27/16 22:52 Seroquel PO 400 mg HS ALHAJI Administration Sertraline HCl 50 mg 08/28/16 09:00 Zoloft PO QAM ALHAJI Zolpidem Tartrate 5 mg 08/28/16 12:34 Ambien PO HS PRN Insomnia Intake and Output 08/27/16 08/28/16 08/28/16 22:59 06:59 14:59 Intake Total 300 146.673 255 Output Total 200 Balance 300 146.673 55 Intake: IV 140 255 0.9 140 Amount of Fluid Infused ( 300 ml) Intake, IV Titration 6.673 Amount Heparin Sodium,Porcine/ 6.673 D5w Pmx 25,000 unit In Dextrose/Water 1 500ml. bag @ 9.1 UNITS/KG/HR 20. 02 mls/hr IV .Q24H [facility] Rx #:[id number] Oral 0 Output: Urine 200 Other: Voiding Method Toilet Toilet Weight 110 kg 110 kg 08/27/16 15:32 08/27/16 15:32 Assessment and Plan Plan: Assessment and plan #1 non-ST elevation OK #2 hypertension with hypotension #3 diabetes #4 history of prior heart catheterization, results unavailable at this time #5 remote history of PE in the setting of leg injury From cardiology perspective, patient was seen and examined this morning. Echocardiogram was reviewed at the bedside. Patient will undergo cardiac catheterization by Dr. KARENA Marino today. Further recommendations to follow depending on coronary angiography findings. DAY WORKER note has been reviewed, I agree with a documented findings and plan of care. Patient was seen and examined.
[2016-08-28 13:10] LABS: Glucose,Whole Blood 219 mg/dL (75-99)
[2016-08-28] MEDS: CHOLECALCIFEROL 1,000 UNIT TAB PO SCH (13:15)
[2016-08-28] MEDS: LINAGLIPTIN 5 MG TABLET PO SCH (13:15)
[2016-08-28] MEDS: SERTRALINE 50 MG TAB PO SCH (13:15)
[2016-08-28] MEDS: HYDROcodone/APAP 5-325MG 1 EACH TAB PO PRN (15:10)
--- NOTE | 2016-08-28 16:04 | P.HPIM ---
History of Present Illness his pleasant 56-year-old female patient with a known history of hypertension, diabetes, PE in 2007 in the setting of acute lower extremity injury, prior heart catheterization in 2012 done in [place] with no stents at that time, patient is unclear regarding results. Presented to the emergency department with complaints of left-sided chest discomfort that she described as someone sitting on her chest, radiated down her left arm she also had nausea and diaphoresis at that time. He had elevated troponin of 0.732, 0.679 and 0.478 consistent with non-ST elevated DC. Patient's chest x-ray showed no acute cardiopulmonary process. Patient was started on heparin drip and Nitropaste and had done well through the night. This a.m., patient developed sharp left- sided chest discomfort without associated symptoms, minimal relief with nitro at that time. Blood pressure was also noted to be low in the 80s to low 100s systolically. She was given a 250 mL bolus with some improvement. Patient was seen and examined and echocardiogram was reviewed that showed an ejection fraction of 45-50% with apical hypokinesis. Hg done this morning shows ST-T wave abnormalities in anterolateral leads. Patient underwent cardiac catheterization and stenting Review of Systems REVIEW OF SYSTEMS: CONSTITUTIONAL: No fever, no malaise, no fatigue. HEENT: No recent visual problems or hearing problems. Denied any sore throat. CARDIOVASCULAR: No orthopnea, PND, no palpitations, no syncope. PULMONARY: No shortness of breath, no cough, no hemoptysis. GASTROINTESTINAL: No diarrhea, no nausea, no vomiting, no abdominal pain. Normoactive bowel sounds. NEUROLOGICAL: No headaches, no weakness, no numbness. HEMATOLOGICAL: Denies any bleeding or petechiae. GENITOURINARY: Denies any burning micturition, frequency, or urgency. MUSCULOSKELETAL/RHEUMATOLOGICAL: Denies any joint pain, swelling, or any muscle pain. ENDOCRINE: Denies any polyuria or polydipsia. The rest of the 14-point review of systems is negative. Past Medical History Past Medical History: Chest Pain / Angina, Diabetes Mellitus, Hypertension, Musculoskeletal Disorder, Osteoarthritis (OA), Pulmonary Embolus (PE), Rheumatoid Arthritis (RA), Vascular Disorder Additional Past Medical History / Comment(s): PE in Left lung d/t a right DVT 2007. ANEMIA. HEART MURMUR. CHRONIC BACK PAIN. RAYNAUDS. Chronic insomnia. SOB. 2 diabetes 08/29/15. Ddd chronic back pain. Multiple sclerosis History of Any Multi-Drug Resistant Organisms: None Reported Past Surgical History: Adenoidectomy, Cholecystectomy, Tonsillectomy, Tubal Ligation Additional Past Surgical History / Comment(s): CORY FUNDOPLASTY. REPAIR OF HOLE IN DIAPHRAGM. EGD. PAIN CINIC PROCEDURE Past Anesthesia/Blood Transfusion Reactions: No Reported Reaction Additional Past Anesthesia/Blood Transfusion Reaction / Comment(s): PT ADOPTED- FAMILY HX UNKNOWN Past Psychological History: Anxiety, Bipolar Additional Psychological History / Comment(s): taking stress management class and grief and loss class Smoking Status: Never smoker - Past Family History Father Family Medical History: Unable to Obtain Additional Family Medical History / Comment(s): PT ADOPTED-FAMILY HX UNKNOWN Son(s) Additional Family Medical History / Comment(s): Patient has 3 children and 2 history of cerebral palsy. One child has no major medical problems. Medications and Allergies Home Medications Medication Instructions Recorded Confirmed Type QUEtiapine [SEROquel] 400 mg PO HS 05/25/15 08/27/16 History Carvedilol [Coreg] 50 mg PO BID 08/23/15 08/27/16 History Naproxen 500 mg PO Q12HR 11/16/15 08/27/16 History Chlorthalidone [Hygroton] 25 mg PO QAM 01/10/16 08/27/16 History Lisinopril 40 mg PO QAM 01/10/16 08/27/16 History Sertraline [Zoloft] 50 mg PO QAM 01/10/16 08/27/16 History Glimepiride [Amaryl] 2 mg PO AC-BRKFST 05/23/16 08/27/16 History hydrALAZINE HCL [Apresoline] 25 mg PO BID 05/23/16 08/27/16 History metFORMIN HCL [Glucophage] 500 mg PO BID 05/23/16 08/27/16 History Cholecalciferol (Vitamin D3) 2,000 unit PO DAILY 08/27/16 08/27/16 History [Vitamin D3] cloNIDine HCL [Catapres] 0.2 mg PO HS 08/27/16 08/27/16 History sitaGLIPtin [Januvia] 25 mg PO DAILY 08/27/16 08/27/16 History Allergies Allergy/AdvReac Type Severity Reaction Status Date / Time tizanidine AdvReac Hallucinati Verified 08/27/16 16:27 ons Physical Exam Vitals: Vital Signs Temp Pulse Pulse Pulse Resp BP BP 08/28/16 13:19 62 18 125/58 08/28/16 13:04 60 18 126/68 08/28/16 12:49 96.9 F L 61 18 114/71 08/28/16 12:00 18 08/28/16 09:17 68 105/55 08/28/16 09:00 68 18 94/43 08/28/16 08:50 08/28/16 08:35 88/48 08/28/16 08:00 97.6 F 60 16 88/48 08/28/16 04:00 97.0 F L 58 L 16 90/55 08/27/16 23:19 73 16 08/27/16 22:50 73 16 152/83 08/27/16 21:19 138/90 08/27/16 21:13 167/107 08/27/16 21:00 158/97 08/27/16 20:00 97.1 F L 81 14 172/92 08/27/16 19:32 97.7 F 80 18 175/109 08/27/16 19:05 98.5 F 77 18 160/83 08/27/16 18:53 77 18 160/83 08/27/16 18:18 78 18 199/122 08/27/16 18:02 76 18 199/122 08/27/16 17:47 134/88 08/27/16 16:47 85 18 160/80 08/27/16 16:04 98.5 F 78 18 183/89 BP Pulse Ox 08/28/16 13:19 98 08/28/16 13:04 98 08/28/16 12:49 99 08/28/16 12:00 08/28/16 09:17 08/28/16 09:00 08/28/16 08:50 96 08/28/16 08:35 88/50 08/28/16 08:00 95 08/28/16 04:00 96 08/27/16 23:19 08/27/16 22:50 98 08/27/16 21:19 08/27/16 21:13 08/27/16 21:00 08/27/16 20:00 97 08/27/16 19:32 98 08/27/16 19:05 99 08/27/16 18:53 99 08/27/16 18:18 08/27/16 18:02 97 08/27/16 17:47 08/27/16 16:47 96 08/27/16 16:04 97 Intake and Output 08/28/16 08/28/16 08/28/16 06:59 14:59 22:59 Intake Total 146.673 255 Output Total 200 Balance 146.673 55 Intake: IV 140 255 0.9 140 Intake, IV Titration 6.673 Amount Heparin Sodium,Porcine/ 6.673 D5w Pmx 25,000 unit In Dextrose/Water 1 500ml. bag @ 9.1 UNITS/KG/HR 20. 02 mls/hr IV .Q24H [facility] Rx #:[id number] Oral 0 Output: Urine 200 Other: Voiding Method Toilet Weight 110 kg 110 kg Patient Weight 08/29/16 06:59 Weight 110 kg PHYSICAL EXAMINATION: GENERAL: The patient is alert and oriented x3, not in any acute distress. Well developed, well nourished. HEENT: Pupils are round and equally reacting to light. EOMI. No scleral icterus. No conjunctival pallor. Normocephalic, atraumatic. No pharyngeal erythema. No thyromegaly. CARDIOVASCULAR: S1 and S2 present. No murmurs, rubs, or gallops. PULMONARY: Chest is clear to auscultation, no wheezing or crackles. ABDOMEN: Soft, nontender, nondistended, normoactive bowel sounds. No palpable organomegaly. MUSCULOSKELETAL: No joint swelling or deformity. EXTREMITIES: No cyanosis, clubbing, or pedal edema. NEUROLOGICAL: Gross neurological examination did not reveal any focal deficits. SKIN: No rashes. Results CBC & Chem 7: 08/27/16 15:32 08/27/16 15:32 Labs: Abnormal Lab Results - Last 24 Hours (Table) 08/27/16 08/27/16 08/27/16 Range/Units 15:32 15:32 15:32 APTT (22.0-30.0) sec D-Dimer 0.61 H (<0.60) mg/L FEU BUN 18 H (7-17) mg/dL Glucose 328 H (74-99) mg/dL POC Glucose (mg/dL) (75-99) mg/dL Hemoglobin A1c (4.2-6.1) % AST 100 H (14-36) U/L ALT 171 H (9-52) U/L Alkaline Phosphatase 218 H (38-126) U/L Troponin I 0.732 H* (0.000-0.034) ng/mL 08/27/16 08/27/16 08/27/16 Range/Units 15:32 19:07 21:27 APTT (22.0-30.0) sec D-Dimer (<0.60) mg/L FEU BUN (7-17) mg/dL Glucose (74-99) mg/dL POC Glucose (mg/dL) 251 H (75-99) mg/dL Hemoglobin A1c 11.3 H (4.2-6.1) % AST (14-36) U/L ALT (9-52) U/L Alkaline Phosphatase (38-126) U/L Troponin I 0.679 H* (0.000-0.034) ng/mL 08/27/16 08/27/16 08/28/16 Range/Units 22:50 22:54 05:46 APTT 32.0 H (22.0-30.0) sec D-Dimer (<0.60) mg/L FEU BUN (7-17) mg/dL Glucose (74-99) mg/dL POC Glucose (mg/dL) 332 H 293 H (75-99) mg/dL Hemoglobin A1c (4.2-6.1) % AST (14-36) U/L ALT (9-52) U/L Alkaline Phosphatase (38-126) U/L Troponin I (0.000-0.034) ng/mL 08/28/16 08/28/16 08/28/16 Range/Units 06:29 06:29 12:50 APTT 60.4 H (22.0-30.0) sec D-Dimer (<0.60) mg/L FEU BUN (7-17) mg/dL Glucose (74-99) mg/dL POC Glucose (mg/dL) 219 H (75-99) mg/dL Hemoglobin A1c (4.2-6.1) % AST (14-36) U/L ALT (9-52) U/L Alkaline Phosphatase (38-126) U/L Troponin I 0.478 H* (0.000-0.034) ng/mL Thrombosis Risk Factor Assmnt - Choose All That Apply Any of the Below Risk Factors Present?: Yes Each Factor Represents 1 point: Obesity (BMI >25), Swollen legs (current) Each Risk Factor Represents 3 Points: History of DVT/PE Thrombosis Risk Factor Assessment Total Risk Factor Score: 5 Thrombosis Risk Factor Assessment Level: High Risk Assessment and Plan Plan: #1 non-ST elevation microinfarction: Patient underwent cardiac catheterization and stenting, patient is on beta esvin statin, dual antibiotic therapy. Patient had decrease ejection fraction secondary to possible acute systolic dysfunction from acute myocardial infarction without any acute exacerbation. 2 type 2 diabetes mellitus uncontrolled blood sugars at home. Patient home regimen and continued except for metformin patient will be also on sliding scale insulin depending on his her blood sugars here we'll titrate her oral hypoglycemic agents 3 hypertension #4 history of pulmonary masses and not an anti-correlation on admission. 5 chronic low back pain 6 osteoarthritis and rheumatoid arthritis.
[2016-08-28 17:06] LABS: Glucose,Whole Blood 194 mg/dL (75-99)
[2016-08-28 20:44] LABS: Glucose,Whole Blood 159 mg/dL (75-99)
[2016-08-28] MEDS ORDERED: ATORVASTATIN 80 MG TAB PO SCH (21:00)
[2016-08-28] MEDS: QUEtiapine 400 MG TAB PO SCH (21:45)
[2016-08-29 05:02] VITALS: RESP 14
[2016-08-29 05:58] LABS: Glucose,Whole Blood 212 mg/dL (75-99)
[2016-08-29 06:13] LABS: Basophils % (A) 0 %; CH 31.3; CHCM 34.1; Eosinophils # (A) 0.2 k/uL (0-0.7); Eosinophils % (A) 3 %; HGB 13.3 gm/dL (11.4-16.0); Luc # (Auto) 0.16; Luc % (Auto) 2; Lymphocytes # (A) 2.1 k/uL (1.0-4.8); Lymphocytes % (A) 31 %; MCH 30.6 pg (25.0-35.0); MCHC 33.2 g/dL (31.0-37.0); MCV 92.2 fL (80.0-100.0); Mean Platelet Volume 7.3; Monocytes # (A) 0.4 k/uL (0-1.0); Monocytes % (A) 5 %; Neutrophils # (A) 4.2 k/uL (1.3-7.7); Neutrophils % (A) 59 %; RBC 4.34 m/uL (3.80-5.40); RDW 13.2 % (11.5-15.5); WBC (Perox) 7.16
[2016-08-29 06:22] LABS: Anion Gap 6 mmol/L; Blood Urea Nitrogen 14 mg/dL (7-17); Calcium 8.9 mg/dL (8.4-10.2); Carbon Dioxide 24 mmol/L (22-30); Chloride 109 mmol/L (98-107); Glucose 184 mg/dL (74-99); Non-African American GFR(MDRD) >60 (>60 ml/min/1.73 sqM); Potassium 3.5 mmol/L (3.5-5.1); Sodium 139 mmol/L (137-145)
[2016-08-29] MEDS: GLIMEPIRIDE 2 MG TAB PO SCH (06:37)
[2016-08-29] MEDS: INSULIN LISPRO (humaLOG) 300 UNIT/3 ML VIAL SQ SCH ×2 (06:40→12:19)
[2016-08-29] MEDS: CARVEDILOL 12.5 MG TAB PO SCH (08:36)
[2016-08-29] MEDS: hydrALAZINE HCL 25 MG TAB PO SCH (08:36)
[2016-08-29] MEDS: CHOLECALCIFEROL 1,000 UNIT TAB PO SCH (08:36)
[2016-08-29] MEDS: LISINOPRIL 20 MG TAB PO SCH (08:37)
[2016-08-29] MEDS: LINAGLIPTIN 5 MG TABLET PO SCH (08:37)
[2016-08-29] MEDS: SERTRALINE 50 MG TAB PO SCH (08:37)
[2016-08-29 08:43] VITALS: TEMP 97.1
[2016-08-29] MEDS ORDERED: ASPIRIN 81 MG CHEW PO SCH (09:00)
[2016-08-29] MEDS ORDERED: PRASUGREL 10 MG TAB PO SCH (09:00)
--- NOTE | 2016-08-29 09:26 | CC ---
DATE OF SERVICE: 08/28/2016 PROCEDURE: 1. Left heart catheterization, coronary angiography. 2. PTCA and stenting of the mid and distal LAD with drug eluting stents. PERFORMED BY: Dr. Kadeem Marino. CLINICAL INFORMATION: Danica Jackson is a 56 year old lady with a history of hypertension, type 2 diabetes, hyperlipidemia who came into the hospital yesterday with chest pain, had relief with nitroglycerine, was placed on a heparin drip and thought to have troponin elevation suggestive of non-ST elevation LA with precordial T-wave inversions in the leads V4 to V6. She was advised coronary angiography and intervention based on findings. Risks, benefits, options and rationale were explained to the patient and her . The patient was brought in for the procedure after due discussion. PROCEDURE NOTE: Under local anesthesia and strict aseptic precautions, using micropuncture technique, I gained access to the right radial artery and placed a 6 Tajik introducer. I tried to advance the Glidewire and Ultima 1 catheter but angulation of the ascending aorta was quite severe. The patient had a bovine arch and I really could not gain access into the ascending aorta comfortably and with the Glidewire I was in the ascending aorta but it was making a very large two 90 degree bends and therefore, I decided not to pursue coronary angiography from right radial and switched over to right femoral. Under local anesthesia and strict aseptic precautions, a 6 Tajik introducer was placed in the right femoral. Using a Ryan catheter, I performed selective coronary angiography of the right coronary artery. The Ryan catheter was opened and therefore I used it. A standard JL4 diagnostic catheter was used to perform selective coronary angiography of left system. I gave nitroglycerine and got additional pictures. After PCI, I check LV pressures but LV gram was not performed. Following coronary angiography, I proceed to perform intervention of the mid LAD. I used a JL3.5 guide catheter to cannulate the left coronary artery. BMW wire was used to cross the lesion. Predilatation of both the mid and distal lesions were performed using a 2.25 caliber 12 mm long Trek balloon. I deployed in the proximal lesion a 2.5 caliber 12 mm long Xience at 13 atmospheres. The patient continued to have chest pain and inferior ST elevation which seemed to reflect the distal lesion which was supplying the inferoapical portion of the left ventricle. I then addressed this with a 2.25 caliber, 12 mm long Xience stent. With this, EKG changes improved remarkably. The patient had total resolution of chest pain. Excellent angiographic result was achieved with two stents, one in the distal LAD of 2.25 caliber 12 mm length and one in the proximal LAD of 2.5 caliber 12 mm length. The patient received 60 mg of Effient and also Angiomax bolus and infusion was given. Moderate conscious sedation was provided with a combination of Versed, Fentanyl and Benadryl for a total duration of 77 minutes. CARDIAC CATHETERIZATION FINDINGS: The left ventricle end diastolic pressure was 21 mmHg without any gradient across the aortic valve. CORONARY ANGIOGRAPHY FINDINGS: Right coronary artery technically a dominant vessel, has multiple areas of calcification, mid lesion of about 35 to 40% and then the caliber improves distally, bifurcates into smaller PLV, larger PDA both of which have minor irregularities. Mid RCA dominant vessel has a 40% lesion. Left main coronary artery: This is a very long disease free vessel that bifurcates into LAD and circumflex. The left main itself is free of significant disease. Left anterior descending coronary artery: Good caliber vessel that gives off a good sized diagonal branch and there is an eccentric 80 to 90% lesion after which the vessel becomes extremely small, runs all the way to the apex, supplying a sizable amount of myocardium. The entire LAD is diffusely disease. After a good sized diagonal branch which has minor diffuse disease, the LAD has 90% stenosis and then the caliber improves, gives off a second diagonal branch and then the entire vessel is diffusely diseased and in the distal one forth, there is a 90% lesion before the vessel curves over the apex to supply the inferoapical portion of the left ventricle. Left posterior circumflex coronary artery: Technically a nondominant vessel gives off a tortuous single obtuse marginal and then one AV groove branch, both of these have minor irregularities. No significant disease. LEFT VENTRICULOGRAM: This was not performed. FINAL IMPRESSION: This patient has a right dominant system, normal filling pressures, an 80 to 90% mid LAD and a 90% distal LAD lesion. Circumflex is nondominant, free of significant disease. RCA is dominant, has a 40% mid lesion with diffuse disease in all vessels. Filling pressures are elevated and LV gram was not performed. RECOMMENDATIONS: I advised PCI of the mid and distal LAD and proceeded to perform this in the same setting. Following PCI with two drug eluting stents, excellent angiographic result was achieved without complication. The results were discussed with the patient and the family. I expect she will be discharged in the next 24 to 48 hours. ELENO
--- NOTE | 2016-08-29 09:30 | MISC ---
Dear Dr. Solomon: Thank you for the opportunity to participate in the care of Mrs. Jackson. Please find enclosed my detailed cardiac cath report for your records. This lady presented with non-ST elevation DC, underwent stenting of the mid and distal LAD. She has moderate disease in the RCA as well. Aggressive medical therapy with LDL goal of less than 70 and good blood sugar control, dietary discretion and exercise is advised. I expect she will be discharged in the next 24 to 48 hours. Thank you for your referral. Please call for questions. With kindest regards, Sincerely yours, ELENO
[2016-08-29] MEDS ORDERED: FLUCONAZOLE 150 MG TAB PO STA (10:31)
[2016-08-29 11:35] LABS: Glucose,Whole Blood 189 mg/dL (75-99)
[2016-08-29 12:51] VITALS: BP 122/70
[2016-08-29] MEDS: HYDROcodone/APAP 5-325MG 1 EACH TAB PO PRN (14:00)
--- NOTE | 2016-08-29 15:05 | PN ---
Mrs. Jackson is doing well. Her right radial sight as well as right groin is clean and dry. She underwent stenting of mid and distal LAD. Vital signs are stable. No JVD or carotid bruit. S1, S2, heard normally. Lungs are clear. Abdomen and lower extremity exam unchanged. Plan is to continue current medications, increase activity. Plan for discharge later today and I will see her in the office in the next 7 to 10 days. ELENO
--- NOTE | 2016-08-29 16:46 | P.DS ---
Providers Date of admission: 08/27/16 17:28 Attending physician: Alec Hathaway Consults: 08/27/16 17:29 Consult Physician Routine Consulting Provider: Cecilia Marino Consult Reason/Comments: NSTEMI Do you want consulting provider notified?: Yes, Notify in am 08/28/16 12:34 Consult Physician Routine Consulting Provider: [facility] Consult Reason/Comments: Post Interventional patient Do you want consulting provider notified?: Already Contacted Primary care physician: Mimi Stephens [facility] Course: she was admitted for non-ST elevation myocardial infarction and patient underwent stenting of LAD and patient is being discharged today. PHYSICAL EXAMINATION: GENERAL: The patient is alert and oriented x3, not in any acute distress. Well developed, well nourished. HEENT: Pupils are round and equally reacting to light. EOMI. No scleral icterus. No conjunctival pallor. Normocephalic, atraumatic. No pharyngeal erythema. No thyromegaly. CARDIOVASCULAR: S1 and S2 present. No murmurs, rubs, or gallops. PULMONARY: Chest is clear to auscultation, no wheezing or crackles. ABDOMEN: Soft, nontender, nondistended, normoactive bowel sounds. No palpable organomegaly. MUSCULOSKELETAL: No joint swelling or deformity. EXTREMITIES: No cyanosis, clubbing, or pedal edema. NEUROLOGICAL: Gross neurological examination did not reveal any focal deficits. SKIN: No rashes. #1 non-ST elevation microinfarction: Patient underwent cardiac catheterization and stenting, patient is on beta esvin statin, dual antibiotic therapy. Patient had decreased ejection fraction secondary to possible acute systolic dysfunction from acute myocardial infarction without any acute exacerbation. 2 type 2 diabetes mellitus uncontrolled blood sugars at home. 3 hypertension #4 history of pulmonary masses and not an anti-correlation on admission. 5 chronic low back pain 6 osteoarthritis and rheumatoid arthritis. Patient Condition at Discharge: Good Plan - Discharge Summary New Discharge Prescriptions: New Aspirin 81 mg PO DAILY #90 Atorvastatin [Lipitor] 80 mg PO HS #90 tab Carvedilol [Coreg*] 25 mg PO BID tab Nitroglycerin Sl Tabs [Nitrostat] 0.4 mg SUBLINGUAL Q5M PRN #25 tab PRN Reason: Chest Pain Prasugrel [Effient] 10 mg PO DAILY #90 tab Continue Lisinopril 40 mg PO QAM hydrALAZINE HCL [Apresoline] 25 mg PO BID Discontinued Carvedilol [Coreg] 50 mg PO BID Chlorthalidone [Hygroton] 25 mg PO QAM cloNIDine HCL [Catapres] 0.2 mg PO HS No Action QUEtiapine [SEROquel] 400 mg PO HS Naproxen 500 mg PO Q12HR Sertraline [Zoloft] 50 mg PO QAM Glimepiride [Amaryl] 2 mg PO AC-BRKFST metFORMIN HCL [Glucophage] 500 mg PO BID sitaGLIPtin [Januvia] 25 mg PO DAILY Cholecalciferol (Vitamin D3) [Vitamin D3] 2,000 unit PO DAILY Discharge Medication List QUEtiapine [SEROquel] 400 mg PO HS 05/25/15 [History] Naproxen 500 mg PO Q12HR 11/16/15 [History] Lisinopril 40 mg PO QAM 01/10/16 [History] Sertraline [Zoloft] 50 mg PO QAM 01/10/16 [History] Glimepiride [Amaryl] 2 mg PO AC-BRKFST 05/23/16 [History] hydrALAZINE HCL [Apresoline] 25 mg PO BID 05/23/16 [History] metFORMIN HCL [Glucophage] 500 mg PO BID 05/23/16 [History] Cholecalciferol (Vitamin D3) [Vitamin D3] 2,000 unit PO DAILY 08/27/16 [History] sitaGLIPtin [Januvia] 25 mg PO DAILY 08/27/16 [History] Aspirin 81 mg PO DAILY #90 08/29/16 [Rx] Atorvastatin [Lipitor] 80 mg PO HS #90 tab 08/29/16 [Rx] Carvedilol [Coreg*] 25 mg PO BID tab 08/29/16 [Rx] Nitroglycerin Sl Tabs [Nitrostat] 0.4 mg SUBLINGUAL Q5M PRN #25 tab 08/29/16 [Rx ] Prasugrel [Effient] 10 mg PO DAILY #90 tab 08/29/16 [Rx] Follow up Appointment(s)/Referral(s): Cecilia Marino MD [STAFF PHYSICIAN] - 09/07/16 2:30 pm Mimi Solomon III, MD [Primary Care Provider] - 08/31/16 9:30 am Patient Instructions/Handouts: *Surgery [facility] - After Heart Catheterization - Abrasive Grinder Instructions
[2016-08-29 17:12] LABS: Glucose,Whole Blood 157 mg/dL (75-99)
[2016-08-29 17:49] VITALS: PULSE 80
== END 2016-08-29 19:05 | disposition home or self-care (01) | DRG 247 ==
LOC: EC 14:56 → 6SEL 17:28
PROVIDERS: ADMIT Hospitalist; ATTEND Hospitalist
PROC: B2111ZZ Fluoroscopy of Multiple Coronary Arteries using Low Osmolar Contrast (ICD-10-PCS; 2016-08-28)
PROC: 027035Z Dilation of Coronary Artery, One Artery with Two Drug-eluting Intraluminal Devices, Percutaneous Approach (ICD-10-PCS; principal; 2016-08-28 10:27)
PROC: 4A023N7 Measurement of Cardiac Sampling and Pressure, Left Heart, Percutaneous Approach (ICD-10-PCS; 2016-08-28 10:27)
DX: I21.4 Non-ST elevation (NSTEMI) myocardial infarction (principal); I95.9 Hypotension, unspecified; E11.65 Type 2 diabetes mellitus with hyperglycemia; G35 Multiple sclerosis; I25.119 Atherosclerotic heart disease of native coronary artery with unspecified angina pectoris; I10 Essential (primary) hypertension; E78.5 Hyperlipidemia, unspecified; M06.9 Rheumatoid arthritis, unspecified; I73.00 Raynaud's syndrome without gangrene; F41.9 Anxiety disorder, unspecified; M19.91 Primary osteoarthritis, unspecified site; F51.04 Psychophysiologic insomnia; G89.29 Other chronic pain; Z79.84 Long term (current) use of oral hypoglycemic drugs; Z79.1 Long term (current) use of non-steroidal anti-inflammatories (NSAID); Z79.899 Other long term (current) drug therapy; Z86.711 Personal history of pulmonary embolism; Z88.8 Allergy status to other drugs, medicaments and biological substances
CPT/HCPCS: 36415; 71010; 80048; 80053; 82550; 82553; 83036; 83735; 84484; 85025; 85379; 85610; 85730; 93005; 93306; 93458; 94760; 96365; 96376; 99285

== ENCOUNTER → 2016-08-27 | Outpatient (CLI) | payer OTHER ==
--- NOTE | 2016-08-27 14:40 | P.PN ---
Progress Note - Text Patient returns for followup for chronic back pain with radiation to hips. Patient recently underwent bilateral lumbar RFA, which provided 60% relief since procedures completed in June. Patient continues on medications for pain from PCP with good relief. Patient denies adverse drug effects from medications. Today, pt denies new-onset weakness, bowel/bladder incontinence, or any other signs or symptoms of cauda equina syndrome. There are no signs of acute intoxication, and no indications of medication diversion or overuse. In addition to above, 13-point review of systems is also negative for chest pain , shortness of breath, changes in vision, changes in hearing, new onset weakness , abdominal pain, diarrhea, extreme fatigue, malaise, fever, skin changes, homicidal or suicidal ideation, or bowel or bladder incontinence. Vital Signs: Reviewed in EMR Gen: WDWN, AAOx3, NAD HEENT: NCAT, EOMI, hearing grossly normal Pulm: resp unlabored Abd: soft, NT, ND Neck: supple, trachea midline ROM in flexion lumbar spine: reduced ROM in extension lumbar spine: reduced Lumbar paravertebral tenderness: + Facet loading: + bilateral SI joint tenderness: + Rolando's test: + R > L Straight leg raise: neg Lower extremity: decreased ROM dorsiflexion/plantarflexion strength, hip flexion/extension, and knee flexion/extension secondary to pain Neuro: CN II-XII grossly intact, muscle strength lower extremities PRESERVED Imaging: Reviewed in EMR Assessment: 1. SIJ dysfunction 2. lumbar spondylosis without myelopathy 3. chronic pain syndrome Plan: 1. Explanation: Opioid and psychological risk scores were reviewed. Diagnoses , prognoses, and multiple treatment options including but not limited to physical therapy, interventional therapies, adjuvant medical therapies, narcotic medication therapies, and surgery were discussed with the patient and all questions were answered to the patient's satisfaction. 2. Opioid agreement: Patient has previously signed narcotic agreement, and was orally counseled to not overuse, abuse, divert, or cell medications, and to take them as prescribed by only 1 healthcare provider. The patient was also counseled to store opioid medications in a safe and preferably locked location. Patient was also counseled against driving or operating heavy equipment while using narcotic medications and also to not use alcohol or any illicit or recreational drugs. The patient verbalized understanding that lack of compliance with any of the above and likely result in failure to renew narcotic prescriptions, possible discharge from the clinic, and possible legal ramifications thereafter if indicated. 3. Counseling: The patient was counseled extensively on BODY MASS INDEX, EXERCISE. Specifically, the patient was instructed regarding the importance of weight control, and exercise in the context of both chronic pain and overall health. 4. Procedures: none for now, patient may need cardiac workup 5. Consultations: None 6. Investigations: None 7. Medications: none prescribed 8. Disposition: f/u for re-eval in 8 weeks. Patient has had some intermittent chest pain with numbness radiating into her left arm to the fingers and does not have neck problems. She is a recently diagnosed diabetic and regularly has extremely high blood pressure. I am concerned about her cardiac status and advised her to go to the ER for an EKG and cardiac evaluation immediately. I enumerated risks of not doing so, including heart attack, stroke, or , and she verbalized understanding. I will have staff call Veronika Lorenzo, [employer], at [facility], and update her on the patient's symptom complaints. PQRS measures: 1-Patient's medications are documented in the chart. 2-Tobacco use is negative 3-Patient has not had a pneumococcal vaccine. 4-Advanced care planning discussed, patient unable to give. 5-Opioid contract signed with the patient. 6-Pain positive, follow-up visit or procedure scheduled 7-Patient's blood pressure measured and documented, and patient will follow up with the primary care due to hypertension and recent chest pain. 8-Patient's weight was measured, and body mass index ABOVE the normal limits, and counseling was done. Patient instructed to follow up with PCP. 9-Patient WAS NOT identified as an unhealthy alcohol user.
[2016-08-27 15:17] VITALS: BP 196/89; PULSE 78; RESP 16; TEMP 97.6
== END | disposition home or self-care (01) ==
LOC: PNWHC3 13:52
PROVIDERS: ATTEND Anesthesiology
DX: M47.816 Spondylosis without myelopathy or radiculopathy, lumbar region (principal); M53.3 Sacrococcygeal disorders, not elsewhere classified; G89.4 Chronic pain syndrome
CPT/HCPCS: 99211

== ENCOUNTER → 2016-11-05 | Outpatient (CLI) | payer OTHER ==
[2016-11-05 14:47] LABS: CH 31.3; CHCM 33.4; HCT 47.8 % (34.0-46.0); HDW 2.67; HGB 15.4 gm/dL (11.4-16.0); MCH 30.3 pg (25.0-35.0); MCHC 32.2 g/dL (31.0-37.0); MCV 94.2 fL (80.0-100.0); Mean Platelet Volume 7.3; RBC 5.07 m/uL (3.80-5.40); RDW 14.2 % (11.5-15.5); WBC 6.6 k/uL (3.8-10.6)
[2016-11-05 15:06] LABS: Anion Gap 14 mmol/L; Blood Urea Nitrogen 12 mg/dL (7-17); Calcium 9.8 mg/dL (8.4-10.2); Carbon Dioxide 23 mmol/L (22-30); Chloride 102 mmol/L (98-107); Glucose 323 mg/dL (74-99); Non-African American GFR(MDRD) >60 (>60 ml/min/1.73 sqM); Potassium 4.1 mmol/L (3.5-5.1); Sodium 139 mmol/L (137-145)
== END | disposition home or self-care (01) ==
LOC: LABWHC1 14:09
PROVIDERS: ATTEND Internal Medicine Interventional Cardiology
DX: E11.9 Type 2 diabetes mellitus without complications (principal); I10 Essential (primary) hypertension; I25.10 Atherosclerotic heart disease of native coronary artery without angina pectoris
CPT/HCPCS: 36415; 80048; 85027

== ENCOUNTER 2017-04-17 12:38 | Inpatient (IN) | payer OTHER ==
[2017-04-17] MEDS ORDERED: NITROGLYCERIN OINT 1 INCH/GM PACKET TOPICAL STA (12:45)
[2017-04-17] MEDS ORDERED: SODIUM CHLORIDE 0.9% 500 ML IV STA (12:45)
[2017-04-17] MEDS ORDERED: MORPHINE SULFATE 4 MG/ML SYRINGE IVP STA ×2 (12:50→18:00)
--- NOTE | 2017-04-17 12:53 | ED ---
Chest Pain HPI - General Stated Complaint: CHEST PAIN Time Seen by Provider: 04/17/17 12:38 Source: patient, EMS, RN notes reviewed Mode of arrival: EMS - History of Present Illness Initial Comments: This is a 56-year-old female who presents by EMS with complaints of chest pain it started last night is gotten worse was 10/10 last night they've 6/10 she states she had a cardiac stress test done yesterday she does not know the results. She has had also she states decreased urine output. States the pain is midsternal fairly constant feels like someone sitting on her chest. No cough phlegm production. She denies any overt fevers chills or sweats at this time. Patient does have a history of cardiac stents. MD Complaint: chest pain - Related Data Home Medications Medication Instructions Recorded Confirmed Lisinopril 40 mg PO HS 01/10/16 04/17/17 Glimepiride [Amaryl] 2 mg PO AC-BRKFST 05/23/16 04/17/17 hydrALAZINE HCL [Apresoline] 25 mg PO BID 05/23/16 04/17/17 Cholecalciferol (Vitamin D3) 2,000 unit PO DAILY 08/27/16 04/17/17 [Vitamin D3] Aspirin 81 mg PO HS 04/17/17 04/17/17 Carvedilol [Coreg] 25 mg PO BID 04/17/17 04/17/17 Clopidogrel [Plavix] 75 mg PO HS 04/17/17 04/17/17 Furosemide [Lasix] 20 mg PO BID 04/17/17 04/17/17 Insulin Glargine [Lantus] 40 unit SQ HS 04/17/17 04/17/17 Sertraline [Zoloft] 100 mg PO DAILY 04/17/17 04/17/17 cloNIDine HCL [Catapres] 0.2 mg PO BID 04/17/17 04/17/17 metFORMIN HCL [metFORMIN HCL ER] 750 mg PO BID 04/17/17 04/17/17 sitaGLIPtin [Januvia] 100 mg PO DAILY 04/17/17 04/17/17 Previous Rx's Medication Instructions Recorded Atorvastatin [Lipitor] 80 mg PO HS #90 tab 08/29/16 Nitroglycerin Sl Tabs [Nitrostat] 0.4 mg SUBLINGUAL Q5M PRN #25 tab 08/29/16 Allergies Allergy/AdvReac Type Severity Reaction Status Date / Time tizanidine AdvReac Hallucinati Verified 04/17/17 12:55 ons Review of Systems ROS Statement: Those systems with pertinent positive or pertinent negative responses have been documented in the HPI. ROS Other: All systems not noted in ROS Statement are negative. EKG Findings - EKG Results: EKG: interpreted by ERMD, sinus rhythm (Sinus rhythm rate of 66 MT interval 150 to QRS duration 84 daily since QTC of 420/440 old inferior changes poor R-wave progression) Past Medical History Past Medical History: Chest Pain / Angina, Diabetes Mellitus, Hypertension, Musculoskeletal Disorder, Osteoarthritis (OA), Pulmonary Embolus (PE), Rheumatoid Arthritis (RA), Vascular Disorder Additional Past Medical History / Comment(s): PE in Left lung d/t a right DVT 2007. ANEMIA. HEART MURMUR. CHRONIC BACK PAIN. RAYNAUDS. Chronic insomnia. SOB. 2 diabetes 08/29/15. Ddd chronic back pain. Multiple sclerosis History of Any Multi-Drug Resistant Organisms: None Reported Past Surgical History: Adenoidectomy, Cholecystectomy, Tonsillectomy, Tubal Ligation Additional Past Surgical History / Comment(s): CORY FUNDOPLASTY. REPAIR OF HOLE IN DIAPHRAGM. EGD. PAIN CINIC PROCEDURE Past Anesthesia/Blood Transfusion Reactions: No Reported Reaction Additional Past Anesthesia/Blood Transfusion Reaction / Comment(s): PT ADOPTED- FAMILY HX UNKNOWN Past Psychological History: Anxiety, Bipolar Additional Psychological History / Comment(s): taking stress management class and grief and loss class Smoking Status: Never smoker - Past Family History Father Family Medical History: Unable to Obtain Additional Family Medical History / Comment(s): PT ADOPTED-FAMILY HX UNKNOWN Son(s) Additional Family Medical History / Comment(s): Patient has 3 children and 2 history of cerebral palsy. One child has no major medical problems. General Exam - General Exam Comments Initial Comments: This is a well-developed well-nourished awake alert oriented 3 female General appearance: alert, anxious, in distress Head exam: Present: atraumatic, normocephalic, normal inspection Eye exam: Present: normal appearance, PERRL, EOMI. Absent: scleral icterus, conjunctival injection, periorbital swelling ENT exam: Present: normal exam, mucous membranes moist Neck exam: Present: normal inspection. Absent: tenderness, meningismus, lymphadenopathy Respiratory exam: Present: normal lung sounds bilaterally. Absent: respiratory distress, wheezes, rales, rhonchi, stridor Cardiovascular Exam: Present: regular rate, normal rhythm, normal heart sounds. Absent: systolic murmur, diastolic murmur, rubs, gallop, clicks GI/Abdominal exam: Present: soft, normal bowel sounds. Absent: distended, tenderness, guarding, rebound, rigid Extremities exam: Present: normal inspection, full ROM, normal capillary refill. Absent: tenderness, pedal edema, joint swelling, calf tenderness Back exam: Present: normal inspection Neurological exam: Present: alert, oriented X3, CN II-XII intact Psychiatric exam: Present: normal affect, normal mood Skin exam: Present: warm, dry, intact, normal color. Absent: rash Course Vital Signs 04/17/17 04/17/17 04/17/17 12:53 14:25 14:28 Temperature 98.1 F Pulse Rate 63 58 L Respiratory 19 14 Rate Blood Pressure 172/91 142/70 O2 Sat by Pulse 95 95 Oximetry 04/17/17 15:14 Temperature Pulse Rate 62 Respiratory 15 Rate Blood Pressure 163/91 O2 Sat by Pulse 95 Oximetry Chest Pain MDM - MDM I did discuss findings with the patient family patient did require CT if she had elevated d-dimer and a history of PE in the past. Patient does demonstrate evidence of a pulmonary embolus on the left. I did discuss findings with patient family she will be admitted Critical Care Time Critical Care Time: Yes Critical Care Time: 32 minutes of critical care time which includes initial monitoring of the patient with history physical labs x-rays reevaluation patient responsive therapy discuss with the patient family regarding findings admission orders and documentation the above discussed with the admitting service. Disposition Clinical Impression: Pulmonary embolism, Chest pain Disposition: ADMITTED IP TO THIS [facility] Condition: Stable Referrals: Mimi Solomon III, MD [Primary Care Provider] - 1-2 days
[2017-04-17 13:01] LABS: Basophils % (A) 0 %; Eosinophils # (A) 0.2 k/uL (0-0.7); Eosinophils % (A) 2 %; HCT 41.4 % (34.0-46.0); HGB 14.3 gm/dL (11.4-16.0); Lymphocytes # (A) 2.2 k/uL (1.0-4.8); Lymphocytes % (A) 20 %; MCHC 34.5 g/dL (31.0-37.0); Mean Platelet Volume 7.4; Monocytes # (A) 0.5 k/uL (0-1.0); Monocytes % (A) 5 %; Neutrophils # (A) 7.8 k/uL (1.3-7.7); Neutrophils % (A) 72 %; Platelet Count 248 k/uL (150-450); RBC 4.75 m/uL (3.80-5.40); RDW 13.5 % (11.5-15.5); WBC 10.9 k/uL (3.8-10.6)
[2017-04-17] MEDS: SODIUM CHLORIDE 0.9% 1,000 ML IV STA ×2 (13:05→13:06)
[2017-04-17 13:12] LABS: ALT 51 U/L (9-52); AST 32 U/L (14-36); Albumin 3.8 g/dL (3.5-5.0); Alkaline Phosphatase 113 U/L (38-126); Amylase 45 U/L (30-110); Anion Gap 10 mmol/L; Blood Urea Nitrogen 15 mg/dL (7-17); Calcium 9.6 mg/dL (8.4-10.2); Carbon Dioxide 24 mmol/L (22-30); Chloride 106 mmol/L (98-107); Glucose 170 mg/dL (74-99); Lipase 86 U/L (23-300); Magnesium 1.8 mg/dL (1.6-2.3); Potassium 4.5 mmol/L (3.5-5.1); Sodium 140 mmol/L (137-145); Total Bilirubin 0.5 mg/dL (0.2-1.3); Total Protein 6.4 g/dL (6.3-8.2)
[2017-04-17 13:14] LABS: D-Dimer 1.27 mg/L FEU (<0.60)
[2017-04-17 13:20] LABS: Partial Thromboplastin Time 22.8 sec (22.0-30.0); Prothrombin Time 9.8 sec (9.0-12.0)
--- NOTE | 2017-04-17 13:21 | XR ---
EXAMINATION TYPE: XR chest 2V DATE OF EXAM: 04/17/2017 COMPARISON: 08/27/2016 HISTORY: 56-year-old female with chest pain and shortness of breath today TECHNIQUE: AP and lateral views FINDINGS: Heart mildly enlarged. Increased prominence to the pulmonary vasculature and increased interstitial d ensities. Small effusions with adjacent patchy density seen on the lateral view. IMPRESSION: 1. Findings suggest CHF with pulmonary vascular congestion. 2. Small effusions with adjacent atelectasis and/or consolidation.
[2017-04-17 13:26] LABS: Creatine Kinase 53 U/L (30-135)
[2017-04-17 13:39] LABS: Creatine Kinase MB 0.3 ng/mL (0.0-2.4); Troponin I <0.012 ng/mL (0.000-0.034)
[2017-04-17] MEDS ORDERED: RX INFO: IV CONTRAST WAS GIVEN 1 EACH MISC MISCELLANE PRN (14:40)
--- NOTE | 2017-04-17 15:25 | CT ---
EXAMINATION TYPE: CT angio chest DATE OF EXAM: 04/17/2017 COMPARISON: Radiograph same day HISTORY: 56-year-old female Shortness of breath and chest pains TECHNIQUE: Contiguous axial scanning of the chest performed with IV Contrast, patient injected with 1 00 mL of Omnipaque 350. Coronal/sagittal MIP reconstructions performed. CT DLP: 900.7 mGycm Automated exposure control for dose reduction was used. FINDINGS: The heart is borderline enlarged without pericardial effusion. Coronary vessel calcifications are pre sent in the remarkable for coronary artery disease. Aorta is normal caliber with a conventional vessel branching anatomy. Prominent reflux of contrast i nto the azygos vein. Prominent but nonenlarged 8mm left superior mediastinal lymph node. No thoracic lymphadenopathy by CT size criteria. While there is satisfactory opacification of the pulmonary arterial system, there is extensive respir atory motion artifacts causing heterogeneity of the pulmonary nodule system. No large central or lobar pulmonary embolus. Findings are suspicious for a segmental branch embolus t o the basilar left lower lobe axial image 73 much of the segmental and more distal arterial branches are otherwise nondiagnostic due to the degree of motion artifacts. Moderate bilateral pleural effusions. Septal lines in the upper and lower lungs and central interstit ial thickening. Mild patchy groundglass dependently in the lower lobes. There is mild circumferential wall thickening of the distal esophagus. Visualized upper abdomen shows mild reflux of contrast into the IVC/hepatic veins. Cholecystectomy clips. Bones: Endplate spondylosis mid to lower thoracic spine. Accentuated mid thoracic kyphosis. No osseou s destructive process. IMPRESSION: 1. RESPIRATORY MOTION ARTIFACTS DEGRADING THE EXAM. NO LARGE CENTRAL OR LOBAR PULMONARY EMBOLUS. WHIL E MANY OF THE SEGMENTAL AND MORE DISTAL ARTERIAL BRANCHES ARE NONDIAGNOSTIC, FINDINGS ARE SUGGESTIVE OF A SMALL SEGMENTAL BRANCH EMBOLUS IN THE BASILAR LEFT LOWER LOBE (AXIAL IMAGE 73). 2. CHF WITH DEVELOPING INTERSTITIAL PULMONARY EDEMA. 3. MODERATE BILATERAL PLEURAL EFFUSIONS. 4. CIRCUMFERENTIAL WALL THICKENING OF THE LOWER ESOPHAGUS COULD REPRESENT ESOPHAGITIS. CLINICALLY COR RELATE WITH PATIENT'S SYMPTOMS. Finding of pulmonary embolus and CHF called to Dr. Chandra in the ER at 3:20 PM.
[2017-04-17] MEDS ORDERED: NALOXONE 0.4 MG/ML 1 ML VIAL IV PRN (15:55)
[2017-04-17] MEDS ORDERED: NITROGLYCERIN SL TABS 0.4 MG TAB SUBLINGUAL PRN (15:57)
[2017-04-17] MEDS ORDERED: HEPARIN SODIUM,PORCINE 5,000 UNIT/ML 1 ML VIAL IV STA (15:59)
[2017-04-17] MEDS: SODIUM CHLORIDE 0.9% 1,000 ML IV SCH (16:32)
[2017-04-17] MEDS: HEPARIN SOD,PORK IN 0.45% NACL 25,000 UNIT in 0.45% NACL 1 500ML.BAG IV SCH (16:34)
[2017-04-17] MEDS ORDERED: FUROSEMIDE 20 MG TAB PO SCH (17:00)
[2017-04-17 18:05] LABS: Glucose,Whole Blood 156 mg/dL (75-99)
[2017-04-17] MEDS ORDERED: FUROSEMIDE 10 MG/ML 2 ML VIAL IV ONE (18:22)
[2017-04-17] MEDS: metFORMIN 500 MG TAB PO SCH (18:42)
[2017-04-17] MEDS: CARVEDILOL 12.5 MG TAB PO SCH (18:43)
[2017-04-17] MEDS: INSULIN ASPART 100 UNIT/ML 1 ML 10 ML VIAL SQ SCH (18:45)
[2017-04-17] MEDS: INSULIN DETEMIR 100 UNIT/ML 10 ML VIAL SQ SCH (20:46)
[2017-04-17] MEDS: hydrALAZINE HCL 25 MG TAB PO SCH (20:46)
[2017-04-17] MEDS: LISINOPRIL 20 MG TAB PO SCH (20:49)
[2017-04-17] MEDS: CLOPIDOGREL 75 MG TAB PO SCH (20:50)
[2017-04-17] MEDS: ASPIRIN 81 MG PO SCH (20:50)
[2017-04-17] MEDS: ATORVASTATIN 80 MG TAB PO SCH (20:50)
[2017-04-17 20:57] LABS: Glucose,Whole Blood 94 mg/dL (75-99)
[2017-04-17] MEDS: cloNIDine HCL 0.2 MG TAB PO SCH (21:50)
[2017-04-18] MEDS ORDERED: IPRATROPIUM-ALBUTEROL 3 ML NEB INHALATION PRN ×2 (00:06→18:53)
[2017-04-18] MEDS: MORPHINE SULFATE 4 MG/ML SYRINGE IVP PRN ×3 (00:18→16:24)
--- NOTE | 2017-04-18 01:14 | P.HPIM ---
History of Present Illness H&P Date: 04/17/17 Chief Complaint: Chest pain Patient is a 55-year-old female with a known history of hypertension, diabetes type 2 and history of [place] and stent placement in 2017 came to ER complaints of chest pain started last night is gotten worse was 10/10 last night they've 6/10 . Constant. No radiation. No cough or sputum production. Pain is associated with shortness of breath and felt like somebody sitting on chest. Patient is also having cough worsening with lying flat. She denies any overt fevers chills or sweats at this time. she states she had a cardiac stress test done yesterday she does not know the results. She has had also she states decreased urine output. States the pain is midsternal fairly constant feels like someone sitting on her chest. No cough phlegm production. Patient does have a history of pulmonary embolism in 2008 and completed anticoagulation at that time. Patient never had any history of smoking. No weight loss. Patient does have loss of appetite recently. Otherwise no acute recent illnesses or sick contacts at home. CTA showed left subsegmental pulmonary embolism. CHF with developing interstitial pulmonary edema. Moderate bilateral pleural effusion. Circumferential esophageal wall thickening suggestive of gastritis. Chest x-ray findings. Congestive heart failure EKG normal sinus rhythm Troponin 1 negative D-dimer 1.27 Review of Systems Constitutional: Patient denies any fever or chills . No generalized weakness or weight loss. Abdomen: Patient denied nausea vomiting and diarrhea and abdominal pain. Cardiovascular: Chest pain and shortness of breath. No leg swelling. Respiratory: patient denied any cough is from production. No shortness of breath Neurologic: Patient denied any numbness or tingling headache. Musculoskeletal: Patient denies any complaints of joint swelling or deformity. Skin: Negative Psychiatric: Negative Endocrine: No heat or cold intolerance. No recent weight gain. Genitourinary: No dysuria or hematuria. All other 14 point ROS negative except the above Past Medical History Past Medical History: Chest Pain / Angina, Diabetes Mellitus, Hypertension, Musculoskeletal Disorder, Osteoarthritis (OA), Pulmonary Embolus (PE), Rheumatoid Arthritis (RA), Vascular Disorder Additional Past Medical History / Comment(s): PE in Left lung d/t a right DVT 2007. ANEMIA. HEART MURMUR. CHRONIC BACK PAIN. RAYNAUDS. Chronic insomnia. SOB. 2 diabetes 08/29/15. Ddd chronic back pain. Multiple sclerosis History of Any Multi-Drug Resistant Organisms: None Reported Past Surgical History: Adenoidectomy, Cholecystectomy, Tonsillectomy, Tubal Ligation Additional Past Surgical History / Comment(s): CORY FUNDOPLASTY. REPAIR OF HOLE IN DIAPHRAGM. EGD. PAIN CINIC PROCEDURE Past Anesthesia/Blood Transfusion Reactions: No Reported Reaction Additional Past Anesthesia/Blood Transfusion Reaction / Comment(s): PT ADOPTED- FAMILY HX UNKNOWN Past Psychological History: Anxiety, Bipolar Additional Psychological History / Comment(s): taking stress management class and grief and loss class Smoking Status: Never smoker - Past Family History Father Family Medical History: Unable to Obtain Additional Family Medical History / Comment(s): PT ADOPTED-FAMILY HX UNKNOWN Son(s) Additional Family Medical History / Comment(s): Patient has 3 children and 2 history of cerebral palsy. One child has no major medical problems. Medications and Allergies Home Medications Medication Instructions Recorded Confirmed Type Lisinopril 40 mg PO HS 01/10/16 04/17/17 History Glimepiride [Amaryl] 2 mg PO AC-BRKFST 05/23/16 04/17/17 History hydrALAZINE HCL [Apresoline] 25 mg PO BID 05/23/16 04/17/17 History Cholecalciferol (Vitamin D3) 2,000 unit PO DAILY 08/27/16 04/17/17 History [Vitamin D3] Atorvastatin [Lipitor] 80 mg PO HS #90 tab 08/29/16 04/17/17 Rx Nitroglycerin Sl Tabs [Nitrostat] 0.4 mg SUBLINGUAL Q5M PRN #25 tab 08/29/1608/28 Rx Aspirin 81 mg PO HS 04/17/17 04/17/17 History Carvedilol [Coreg] 25 mg PO BID 04/17/17 04/17/17 History Clopidogrel [Plavix] 75 mg PO HS 04/17/17 04/17/17 History Furosemide [Lasix] 20 mg PO BID 04/17/17 04/17/17 History Insulin Glargine [Lantus] 40 unit SQ HS 04/17/17 04/17/17 History Sertraline [Zoloft] 100 mg PO DAILY 04/17/17 04/17/17 History cloNIDine HCL [Catapres] 0.2 mg PO BID 04/17/17 04/17/17 History metFORMIN HCL [metFORMIN HCL ER] 750 mg PO BID 04/17/17 04/17/17 History sitaGLIPtin [Januvia] 100 mg PO DAILY 04/17/17 04/17/17 History Allergies Allergy/AdvReac Type Severity Reaction Status Date / Time tizanidine AdvReac Hallucinati Verified 04/17/17 12:55 ons Physical Exam Vitals: Vital Signs Temp Pulse Resp BP Pulse Ox 04/17/17 18:00 110 H 16 142/86 97 04/17/17 17:00 61 16 157/78 95 04/17/17 16:00 58 L 16 152/84 96 04/17/17 15:14 62 15 163/91 95 04/17/17 14:28 14 04/17/17 14:25 58 L 19 142/70 95 04/17/17 12:53 98.1 F 63 172/91 95 Intake and Output 04/17/17 04/17/17 04/17/17 06:59 14:59 22:59 Other: Weight 114.668 kg Patient Weight 04/18/17 06:59 Weight 114.668 kg PHYSICAL EXAMINATION: Patient is lying in the bed comfortably, mild distress, awake alert and oriented.. HEENT: Normocephalic. Neck is supple. Pupils reactive. Nostrils clear. Oral cavity is moist. Ears reveal no drainage. Neck reveals no JVD, carotid bruits, or thyromegaly. CHEST EXAMINATION: Trachea is central. Symmetrical expansion. Bilateral diminished breath sounds and rhonchi present. Basal crackles CARDIAC: Normal S1, S2 with no gallops. No murmurs ABDOMEN: Soft. Bowel sounds normal. No organomegaly. No abdominal bruits. Extremities: reveal no edema. No clubbing or cyanosis Neurologically awake, alert, oriented x3 with well-coordinated movements. No focal deficits noted Skin: No rash or skin lesions. Psychiatric: [id number]. Nonsuicidal Musculoskeletal: No joint swelling or deformity. Normal range of motion. Results CBC & Chem 7: 04/17/17 12:50 04/17/17 12:50 Labs: Abnormal Lab Results - Last 24 Hours (Table) 04/17/17 04/17/17 04/17/17 Range/Units 12:50 12:50 12:50 WBC 10.9 H (3.8-10.6) k/uL Neutrophils # 7.8 H (1.3-7.7) k/uL D-Dimer 1.27 H (<0.60) mg/L FEU Glucose 170 H (74-99) mg/dL POC Glucose (mg/dL) (75-99) mg/dL 04/17/17 Range/Units 18:04 WBC (3.8-10.6) k/uL Neutrophils # (1.3-7.7) k/uL D-Dimer (<0.60) mg/L FEU Glucose (74-99) mg/dL POC Glucose (mg/dL) 156 H (75-99) mg/dL Assessment and Plan Assessment: Acute left lower subsegmental pulmonary embolism Acute CHF with unknown ejection fraction. BNP 2180 and and interstitial edema on chest x-ray Coronary artery disease with history of stent placement in 2017 Hypertension Diabetes type II Morbid obesity with BMI 39.6 Osteoarthritis History of pulmonary embolism 2008 Rheumatoid arthritis Chronic back pain Chronic insomnia History of Cory fundoplication Anxiety and bipolar disorder Plan: Patient be continued on high-dose heparin drip. Continue the pain management with morphine. Patient will be started on IV Lasix 40 mg twice daily. Continue the home medications including aspirin Plavix. Cardiology was consulted. Further recommendations based on the clinical course. Patient related to follow with hematology for further evaluation of recurrent pulmonary embolism. Lower extremity Duplex scan will be ordered. Further recommendations based on the clinical course. Time with Patient: Greater than 30
[2017-04-18] MEDS: FUROSEMIDE 10 MG/ML 4 ML VIAL IV SCH ×3 (01:55→20:42)
[2017-04-18] MEDS: HEPARIN SOD,PORK IN 0.45% NACL 25,000 UNIT in 0.45% NACL 1 500ML.BAG IV SCH ×2 (05:05→20:52)
[2017-04-18] MEDS: INSULIN ASPART 100 UNIT/ML 1 ML 10 ML VIAL SQ SCH ×5 (05:40→21:00)
[2017-04-18 06:04] LABS: Glucose,Whole Blood 119 mg/dL (75-99)
--- NOTE | 2017-04-18 08:05 | US ---
EXAMINATION TYPE: US venous doppler duplex LE BI DATE OF EXAM: 04/18/2017 7:46 AM COMPARISON: CT chest 04/17/2017 CLINICAL HISTORY: Abnormal chest CT. PE, patient on blood thinners SIDE PERFORMED: Bilateral TECHNIQUE: The lower extremity deep venous system is examined utilizing real time linear array sonog joann with graded compression, doppler sonography and color-flow sonography. VESSELS IMAGED: External Iliac Vein (EIV) Common Femoral Vein Deep Femoral Vein Greater Saphenous Vein * Femoral Vein Popliteal Vein Small Saphenous Vein * Proximal Calf Veins (* superficial vessels) Right Leg: Appears negative for DVT Left Leg: Appears negative for DVT IMPRESSION: Grayscale, color doppler, spectral doppler imaging performed of the deep veins of the lo wer extremities. There is normal flow, compressibility, vascular waveforms. No evident deep venous thrombosis at or above the knees. Findings in the segmental branch to the left lower lobe may represe nt vascular web rather than pulmonary embolism.
[2017-04-18 08:45] VITALS: BMI 39.6
[2017-04-18] MEDS: cloNIDine HCL 0.2 MG TAB PO SCH ×2 (09:28→20:42)
[2017-04-18] MEDS: LINAGLIPTIN 5 MG TABLET PO SCH (09:28)
[2017-04-18] MEDS: CHOLECALCIFEROL 1,000 UNIT TAB PO SCH (09:28)
[2017-04-18] MEDS: CARVEDILOL 12.5 MG TAB PO SCH ×2 (09:28→17:19)
[2017-04-18] MEDS: GLIMEPIRIDE 2 MG TAB PO SCH (09:28)
[2017-04-18] MEDS: hydrALAZINE HCL 25 MG TAB PO SCH ×2 (09:29→20:43)
[2017-04-18] MEDS: metFORMIN 500 MG TAB PO SCH ×2 (09:29→17:20)
[2017-04-18] MEDS: SERTRALINE 100 MG TAB PO SCH (10:08)
[2017-04-18 12:09] LABS: Glucose,Whole Blood 140 mg/dL (75-99)
[2017-04-18 12:44] LABS: Basophils % (A) 1 %; Eosinophils # (A) 0.2 k/uL (0-0.7); Eosinophils % (A) 3 %; HCT 38.9 % (34.0-46.0); Lymphocytes # (A) 2.6 k/uL (1.0-4.8); Lymphocytes % (A) 33 %; MCH 30.5 pg (25.0-35.0); MCHC 33.5 g/dL (31.0-37.0); Mean Platelet Volume 8.4; Monocytes # (A) 0.5 k/uL (0-1.0); Monocytes % (A) 6 %; Neutrophils # (A) 4.5 k/uL (1.3-7.7); Neutrophils % (A) 56 %; Platelet Count 204 k/uL (150-450); RBC 4.27 m/uL (3.80-5.40); RDW 13.6 % (11.5-15.5)
[2017-04-18] MEDS ORDERED: KETOROLAC 30 MG/ML 1 ML VIAL IVP STA (12:47)
[2017-04-18 12:54] LABS: Calcium 8.8 mg/dL (8.4-10.2); Potassium 3.6 mmol/L (3.5-5.1)
[2017-04-18 16:11] LABS: Glucose,Whole Blood 86 mg/dL (75-99)
[2017-04-18] MEDS: IPRATROPIUM-ALBUTEROL 3 ML NEB INHALATION SCH ×3 (16:18→20:27)
[2017-04-18] MEDS: SODIUM CHLORIDE 0.9% 1,000 ML IV SCH (17:26)
[2017-04-18] MEDS: ASPIRIN 81 MG PO SCH (20:42)
[2017-04-18] MEDS: CLOPIDOGREL 75 MG TAB PO SCH (20:42)
[2017-04-18] MEDS: ATORVASTATIN 80 MG TAB PO SCH (20:42)
[2017-04-18] MEDS: LISINOPRIL 20 MG TAB PO SCH (20:44)
[2017-04-18 20:59] LABS: Glucose,Whole Blood 115 mg/dL (75-99)
--- NOTE | 2017-04-18 21:41 | P.PN ---
Subjective Progress Note Date: 04/18/17 Principal diagnosis: Acute pulmonary embolism Patient is a 55-year-old female with a known history of hypertension, diabetes type 2 and history of [place] and stent placement in 2017 came to ER complaints of chest pain started last night is gotten worse was 10/10 last night they've 6/10 . Constant. No radiation. No cough or sputum production. Pain is associated with shortness of breath and felt like somebody sitting on chest. Patient is also having cough worsening with lying flat. She denies any overt fevers chills or sweats at this time. she states she had a cardiac stress test done yesterday she does not know the results. She has had also she states decreased urine output. States the pain is midsternal fairly constant feels like someone sitting on her chest. No cough phlegm production. Patient does have a history of pulmonary embolism in 2008 and completed anticoagulation at that time. Patient never had any history of smoking. No weight loss. Patient does have loss of appetite recently. Otherwise no acute recent illnesses or sick contacts at home. CTA showed left subsegmental pulmonary embolism. CHF with developing interstitial pulmonary edema. Moderate bilateral pleural effusion. Circumferential esophageal wall thickening suggestive of gastritis. Chest x-ray findings. Congestive heart failure EKG normal sinus rhythm Troponin 1 negative D-dimer 1.27 04/18/2017 Patient is still complaining of shortness of breath but slightly improved compared to yesterday. Chest pain improved otherwise. patient is being continued on heparin drip. Awaiting cardiology recommendations. Lower extremity duplex is negative for any DVT. Otherwise patient denied any cough or sputum production. No nausea vomiting or abdominal pain. All other review of systems negative except the above Current medications reviewed Objective - Vital Signs Vital signs: Vital Signs Temp 97.4 F L 04/18/17 16:19 Pulse 62 04/18/17 18:58 Resp 18 04/18/17 16:19 BP 160/75 04/18/17 16:19 Pulse Ox 98 04/18/17 16:19 Intake & Output 04/18/17 04/18/17 04/19/17 06:59 18:59 06:59 Intake Total 491.232 672 500 Balance 491.232 672 500 Weight 114.668 kg Intake: IV 272 Heparin Sod,Pork in 0.45% 272 NaCl 25,000 unit In 0.45 % NaCl 1 500ml.bag @ 18 UNITS/KG/HR 41.28 mls/hr IV .Q12H7M ALHAJI Rx#: [id number] Intake, IV Titration 491.232 160 500 Amount Heparin Sod,Pork in 0.45% 491.232 500 NaCl 25,000 unit In 0.45 % NaCl 1 500ml.bag @ 18 UNITS/KG/HR 41.28 mls/hr IV .Q12H7M ALHAJI Rx#: [id number] Sodium Chloride 0.9% 1, 160 000 ml @ 20 mls/hr IV . Q24H ALHAJI Rx#:[id number] Oral 240 Other: # Voids 2 - Exam PHYSICAL EXAMINATION: Patient is lying in the bed comfortably, no acute distress, awake alert and oriented. Morbidly obese. HEENT: Normocephalic. Neck is supple. Pupils reactive. Nostrils clear. Oral cavity is moist. Ears reveal no drainage. Neck reveals no JVD, carotid bruits, or thyromegaly. CHEST EXAMINATION: Trachea is central. Symmetrical expansion. Diminished bibasilar air entry with right basilar crackles CARDIAC: Normal S1, S2 with no gallops. No murmurs ABDOMEN: Soft. Bowel sounds normal. No organomegaly. No abdominal bruits. Extremities: reveal no edema. No clubbing or cyanosis Neurologically awake, alert, oriented x3 with well-coordinated movements. No focal deficits noted Skin: No rash or skin lesions. Psychiatric: Cooperative. Nonsuicidal Musculoskeletal: No joint swelling or deformity. Normal range of motion. - Labs CBC & Chem 7: 04/18/17 05:24 04/18/17 05:24 Labs: Abnormal Lab Results - Last 24 Hours (Table) 04/17/17 04/18/17 04/18/17 Range/Units 23:15 05:24 05:24 APTT 105.2 H* 62.0 H (22.0-30.0) sec Glucose 119 H (74-99) mg/dL POC Glucose (mg/dL) (75-99) mg/dL 04/18/17 04/18/17 04/18/17 Range/Units 05:45 12:05 20:57 APTT (22.0-30.0) sec Glucose (74-99) mg/dL POC Glucose (mg/dL) 119 H 140 H 115 H (75-99) mg/dL Assessment and Plan Assessment: Acute left lower subsegmental pulmonary embolism Acute CHF with unknown ejection fraction. BNP 2180 and and interstitial edema on chest x-ray Coronary artery disease with history of stent placement in 2017 Hypertension Diabetes type II Morbid obesity with BMI 39.6 Osteoarthritis History of pulmonary embolism 2008 Rheumatoid arthritis Chronic back pain Chronic insomnia History of Marga fundoplication Anxiety and bipolar disorder Plan: Patient be continued on high-dose heparin drip. Continue the pain management with morphine. Patient was started on IV Lasix 40 mg twice daily. Continue the home medications including aspirin Plavix. Cardiology was consulted. Further recommendations based on the clinical course. Patient needs to follow with hematology for further evaluation of recurrent pulmonary embolism. Lower extremity Duplex scan showed no DVT. Further recommendations based on the clinical course. Time with Patient: Greater than 30
[2017-04-19] MEDS: INSULIN DETEMIR 100 UNIT/ML 10 ML VIAL SQ SCH (00:11)
[2017-04-19] MEDS: HEPARIN SOD,PORK IN 0.45% NACL 25,000 UNIT in 0.45% NACL 1 500ML.BAG IV SCH ×2 (05:48→11:36)
[2017-04-19 06:17] LABS: Glucose,Whole Blood 97 mg/dL (75-99)
[2017-04-19 06:48] LABS: Basophils # (A) 0.1 k/uL (0-0.2); Basophils % (A) 1 %; Eosinophils # (A) 0.2 k/uL (0-0.7); Eosinophils % (A) 3 %; HCT 36.7 % (34.0-46.0); Lymphocytes # (A) 2.5 k/uL (1.0-4.8); Lymphocytes % (A) 32 %; MCHC 32.6 g/dL (31.0-37.0); Mean Platelet Volume 7.9; Monocytes # (A) 0.4 k/uL (0-1.0); Monocytes % (A) 5 %; Neutrophils # (A) 4.7 k/uL (1.3-7.7); Neutrophils % (A) 59 %; Platelet Count 178 k/uL (150-450); RBC 4.13 m/uL (3.80-5.40); RDW 13.6 % (11.5-15.5); WBC 7.9 k/uL (3.8-10.6)
[2017-04-19] MEDS: metFORMIN 500 MG TAB PO SCH ×2 (07:06→17:11)
[2017-04-19] MEDS: CARVEDILOL 12.5 MG TAB PO SCH ×2 (07:07→17:11)
[2017-04-19] MEDS: GLIMEPIRIDE 2 MG TAB PO SCH (07:07)
[2017-04-19 07:21] LABS: Anion Gap 10 mmol/L; Blood Urea Nitrogen 16 mg/dL (7-17); Calcium 8.5 mg/dL (8.4-10.2); Carbon Dioxide 25 mmol/L (22-30); Chloride 105 mmol/L (98-107); Glucose 90 mg/dL (74-99); Potassium 3.5 mmol/L (3.5-5.1); Sodium 140 mmol/L (137-145)
[2017-04-19] MEDS: INSULIN ASPART 100 UNIT/ML 1 ML 10 ML VIAL SQ SCH ×3 (07:22→17:05)
--- NOTE | 2017-04-19 08:04 | XR ---
EXAMINATION TYPE: XR chest 1V DATE OF EXAM: 04/19/2017 COMPARISON: 04/17/2017 HISTORY: CHF TECHNIQUE: Single frontal view of the chest is obtained. FINDINGS: Bilateral infiltrate and pleural effusion with interstitial pattern persists. Heart is enl arged. No pneumothorax. IMPRESSION: 1. Bilateral infiltrate and pleural effusion correlate for CHF. No significant interval change.
[2017-04-19 08:47] VITALS: TEMP 97.8
[2017-04-19] MEDS: CHOLECALCIFEROL 1,000 UNIT TAB PO SCH (08:49)
[2017-04-19] MEDS: LINAGLIPTIN 5 MG TABLET PO SCH (08:50)
[2017-04-19] MEDS: FUROSEMIDE 10 MG/ML 4 ML VIAL IV SCH (08:50)
[2017-04-19] MEDS: hydrALAZINE HCL 25 MG TAB PO SCH (08:50)
[2017-04-19] MEDS: cloNIDine HCL 0.2 MG TAB PO SCH (08:50)
[2017-04-19] MEDS: SERTRALINE 100 MG TAB PO SCH (08:50)
[2017-04-19] MEDS: IPRATROPIUM-ALBUTEROL 3 ML NEB INHALATION SCH ×3 (09:05→16:48)
[2017-04-19] MEDS ORDERED: Potassium Replacement Protocol 1 EACH MISC MISCELLANE PRN (09:10)
[2017-04-19] MEDS ORDERED: POTASSIUM CHLORIDE ER 20 MEQ TAB.ER PO SCH (10:00)
[2017-04-19] MEDS ORDERED: SPIRONOLACTONE 25 MG TAB PO SCH (10:15)
--- NOTE | 2017-04-19 10:48 | CONS ---
CONSULTATION Danica Jackson is a 51-year-old female. The patient presented to the emergency room with chest discomfort, severe. ECG did not show any ST-segment abnormalities. Q-waves were noted in the anterior leads. Troponins were normal. D-dimer was elevated. She underwent a CT of the chest and it was read as possible pulmonary embolism. She is on IV heparin for now. When I examined her, she was not experiencing any chest discomfort. She was lying flat in bed. She looks very comfortable. REVIEW OF SYSTEMS: No fever, chills or rigors. No cough or expectoration. No nausea, vomiting, or diarrhea. No hematuria or dysuria. No strokes or seizures. No skin lesions or musculoskeletal complaints. PAST HISTORY: Past history of coronary artery disease, anterior wall PA, status post stenting, history of noncompliance. She has stopped all her medications and while driving to [place], she had a repeat anterior wall PA and was restented, now her ejection fraction is 40%. She had a stress test with Dr. Kadeem Marino in the office a few days prior to admission and it shows a fixed defect in the anterior wall with ejection fraction of 40%. No ischemia. Past history of bipolar disorder. SOCIAL HISTORY: Never a smoker. MEDICATIONS: Medications at home were reviewed and are documented in the chart. Medical compliance has been an issue. ALLERGIES: Allergies to TIZANIDINE. PHYSICAL EXAMINATION: On examination, her blood pressure initially was elevated 172/91 mmHg. Today, it is 126/63 mmHg, pulse rate in the 50s, afebrile 97.8 degrees Fahrenheit. Head and neck examination is normal. Heart sounds S1, S2 are normal. No murmurs, no gallops, no rub. The 12-lead ECG was reviewed. Labs are reviewed. IMPRESSION: Known coronary artery disease, status post stenting to the left anterior descending artery in the past The patient stop taking all her medications, had a repeat myocardial infarction was stented in [place]. Now her ejection fraction of 40%. A few days back she had a stress test which did not show any evidence for ischemia. According to Dr. Marino, there was a fixed anterior wall defect. She has Q-waves anteriorly consistent with old anterior wall infarct. SUGGEST: Evaluate for other causes of chest pain. She is being treated for pulmonary embolism at this time. I would suggest continue all her cardiac medications including aspirin and Plavix, atorvastatin and carvedilol and lisinopril. I will also treat her with the spironolactone and stop oral potassium. MMMAGGIEL / IJN: [id number] /
[2017-04-19] MEDS ORDERED: PANTOPRAZOLE 40 MG/10 ML VIAL IVP SCH (11:15)
[2017-04-19] MEDS ORDERED: MORPHINE ORAL SOLN 10 MG/5 ML CUP PO PRN (11:20)
[2017-04-19 11:41] LABS: Glucose,Whole Blood 93 mg/dL (75-99)
[2017-04-19] MEDS ORDERED: ENOXAPARIN 100 MG/ML SYRINGE SQ SCH (13:00)
[2017-04-19] MEDS ORDERED: WARFARIN 5 MG TAB PO ONE (13:00)
[2017-04-19 13:26] LABS: Prothrombin Time 9.9 sec (9.0-12.0)
[2017-04-19] MEDS: SODIUM CHLORIDE 0.9% 1,000 ML IV SCH (16:01)
[2017-04-19 16:31] LABS: Glucose,Whole Blood 86 mg/dL (75-99)
[2017-04-19 17:10] VITALS: BP 180/90; PULSE 64; RESP 16
--- NOTE | 2017-04-22 13:13 | ECHOF ---
Referral Reason:Pulmonary Embolism MEASUREMENTS -------- HEIGHT: 170.2 cm WEIGHT: 114.3 kg BP: 112/55 RVIDd: 3.2 cm (< 3.3) IVSd: 1.1 cm (0.6 - 1.1) LVIDd: 4.3 cm (3.9 - 5.3) LVPWd: 1.1 cm (0.6 - 1.1) IVSs: 1.4 cm LVIDs: 2.5 cm LVPWs: 1.4 cm LAESV Index (A-L): 32.75 ml/m Ao Diam: 3.2 cm (2.0 - 3.7) AV Cusp: 1.7 cm (1.5 - 2.6) LA Diam: 2.8 cm (2.7 - 3.8) MV E Horacio: 1.26 m/s MV DecT: 217 ms MV A Horacio: 0.45 m/s MV E/A Ratio: 2.77 RAP: 15.00 mmHg RVSP: 43.45 mmHg FINDINGS -------- Resting bradycardia (HR<60bpm). This was a technically adequate study. The left ventricular size is normal. There is mild concentric left ventricular hypertrophy. Overa ll left ventricular systolic function is normal with, an EF between 55 - 60 %. The right ventricle is mild to moderately enlarged. LA is midly dilated 29-33ml/m2. The right atrium is normal in size. The aortic valve is trileaflet, and appears structurally normal. No aortic stenosis or regurgitation. The mitral valve leaflets are mildly thickened. Sqwx-[id number] mitral regurgitation is present. Trace tricuspid regurgitation present. There is mild pulmonary hypertension. The right ventricula r systolic pressure, as measured by Doppler, is 43.45mmHg. The pulmonic valve was not well visualized. The aortic root size is normal. The inferior vena cava is dilated with no significant inspiratory collapse which is consistent estima dawson right atrial pressure of >20 mmHg. There is no pericardial effusion. CONCLUSIONS -------- 1. Resting bradycardia (HR<60bpm). 2. This was a technically adequate study. 3. The left ventricular size is normal. 4. There is mild concentric left ventricular hypertrophy. 5. Overall left ventricular systolic function is normal with, an EF between 55 - 60 %. 6. The right ventricle is mild to moderately enlarged. 7. LA is midly dilated 29-33ml/m2. 8. The aortic valve is trileaflet, and appears structurally normal. No aortic stenosis or regurgitati on. 9. The mitral valve leaflets are mildly thickened. 10. [id number]-hwvrohpv mitral regurgitation is present. 11. Trace tricuspid regurgitation present. 12. There is mild pulmonary hypertension. 13. The right ventricular systolic pressure, as measured by Doppler, is 43.45mmHg. 14. The pulmonic valve was not well visualized. 15. The aortic root size is normal. 16. The inferior vena cava is dilated with no significant inspiratory collapse which is consistent es timated right atrial pressure of >20 mmHg. 17. There is no pericardial effusion. HARD TILE SETTER APPRENTICE: Dominick Johnson RDCS
--- NOTE | 2017-04-23 12:16 | CDI ---
Last Revision, January 2017 Documentation Clarification Form Date: 04/23/17 From: Susana David Stacie Howell, Bark Tanner between 8:30 am & 5 pm Luis Admit Date: 04/17/2017 3:56:00 PM Patient Name: Danica Jackson Visit Number: [id number] Discharge Date: 04/19/17 ATTENTION: The Clinical Documentation Specialists (CDI) and [facility] Coding Staff appreciate your assistance in clarifying documentation. Please respond to the clarification below the line at the bottom and electronically sign. The CDI & [facility] Coding staff will review the response and follow-up if needed. Please note: Queries are made part of the Legal Health Record. If you have any questions, please contact the author of this message via ITS. Dr. South Ren Patient admitted with PE and acute CHF. Echo revealed: left ventricular systolic function is normal with, an EF between 55-60%. Right ventricular systolic pressure, as measured by doppler, is 43.45 mmHg. BNP i s 2180. Chest X Ray: findings suggest CHF with pulmonary vascular congestion. Small effusions with adjacent atelectasis and/or consolidation. Treatment: 04/17 Lasix 20 mg po BID then Lasix 20 mg IV once8 Lasix IV 40 mg Q12HR. In your professional opinion, can you please clarify the acuity and type of CHF if known? Systolic Heart Failure: Acute Acute on Chronic Diastolic Heart Failure: Acute Acute on Chronic Systolic & Diastolic Heart Failure: Acute Acute on Chronic Heart Failure Unable to Determine Other, please specify Please continue to document in your progress notes and discharge summary in order to capture severity of illness and risk of mortality. Include clinical findings that support your diagnosis. MTDD
--- NOTE | 2017-04-30 13:13 | P.DS ---
Providers Date of admission: 04/17/17 15:56 Expected date of discharge: 04/19/17 Attending physician: Rupal El Consults: 04/17/17 15:56 Consult Physician Routine Consulting Provider: Cecilia Marino Consult Reason/Comments: Chest pain Do you want consulting provider notified?: Yes Primary care physician: Mimi Stephens [facility] [place] Course: Discharge diagnosis Acute left lower subsegmental pulmonary embolism Acute CHF with unknown ejection fraction. BNP 2180 and and interstitial edema on chest x-ray Abdominal pain epigastric possible acute gastritis with esophageal thickening on CT chest. Started on PPI Coronary artery disease with history of stent placement in 2017 Hypertension Diabetes type II Morbid obesity with BMI 39.6 Osteoarthritis History of pulmonary embolism 2008 Rheumatoid arthritis Chronic back pain Chronic insomnia History of Marga fundoplication Anxiety and bipolar disorder Hospital course Patient is a 55-year-old female with a known history of hypertension, diabetes type 2 and history of VA and stent placement in 2016 came to ER complaints of chest pain started last night is gotten worse was 10/10 last night they've 6/10 . Constant. No radiation. No cough or sputum production. Pain is associated with shortness of breath and felt like somebody sitting on chest. Patient is also having cough worsening with lying flat. She denies any overt fevers chills or sweats at this time. she states she had a cardiac stress test done yesterday she does not know the results. She has had also she states decreased urine output. States the pain is midsternal fairly constant feels like someone sitting on her chest. No cough phlegm production. Patient does have a history of pulmonary embolism in 2008 and completed anticoagulation at that time. Patient never had any history of smoking. No weight loss. Patient does have loss of appetite recently. Otherwise no acute recent illnesses or sick contacts at home. CTA showed left subsegmental pulmonary embolism. CHF with developing interstitial pulmonary edema. Moderate bilateral pleural effusion. Circumferential esophageal wall thickening suggestive of gastritis. Chest x-ray findings. Congestive heart failure EKG normal sinus rhythm Troponin 1 negative D-dimer 1.27 04/18/2017 Patient is still complaining of shortness of breath but slightly improved compared to yesterday. Chest pain improved otherwise. patient is being continued on heparin drip. Awaiting cardiology recommendations. Lower extremity duplex is negative for any DVT. Otherwise patient denied any cough or sputum production. No nausea vomiting or abdominal pain. 04/19/2017 Patient did improve clinically and is tolerating diet. No commerce of chest pain or shortness of breath. No acute overnight issues. Patient will be continued on anticoagulation. Patient was recommended to follow with hematology clinic for further evaluation and for possible hypercoagulability. Patient was continued on high-dose heparin drip. Continue the pain management with morphine. Patient was started on IV Lasix 40 mg twice daily. Continue the home medications including aspirin Plavix. Cardiology cardiology has seen the patient. Patient needs to follow with hematology for further evaluation of recurrent pulmonary embolism. Lower extremity Duplex scan showed no DVT. Patient is stable to be discharged home. PHYSICAL EXAMINATION: Patient is lying in the bed comfortably, no acute distress, awake alert and oriented.. HEENT: Normocephalic. Neck is supple. Pupils reactive. Nostrils clear. Oral cavity is moist. Ears reveal no drainage. Neck reveals no JVD, carotid bruits, or thyromegaly. CHEST EXAMINATION: Trachea is central. Symmetrical expansion. Lung carrero clear to auscultation and percussion. CARDIAC: Normal S1, S2 with no gallops. No murmurs ABDOMEN: Soft. Bowel sounds normal. No organomegaly. No abdominal bruits. Extremities: reveal no edema. No clubbing or cyanosis Neurologically awake, alert, oriented x3 with well-coordinated movements. No focal deficits noted Skin: No rash or skin lesions. Psychiatric: Coperative. Nonsuicidal Musculoskeletal: No joint swelling or deformity. Normal range of motion. Vital Signs 04/17/17 04/17/17 04/17/17 12:53 14:25 14:28 Temperature 98.1 F Pulse Rate 63 58 L Pulse Rate [ Corporate Director Of Human Resources ] Respiratory 19 14 Rate Blood Pressure 172/91 142/70 Blood Pressure [Left Arm] O2 Sat by Pulse 95 95 Oximetry 04/17/17 04/17/17 04/17/17 15:14 16:00 17:00 Temperature Pulse Rate 62 58 L 61 Pulse Rate [ Corporate Director Of [employer] ] Respiratory 15 16 16 Rate Blood Pressure 163/91 152/84 157/78 Blood Pressure [Left Arm] O2 Sat by Pulse 95 96 95 Oximetry 04/17/17 04/17/17 04/17/17 18:00 20:14 20:52 Temperature Pulse Rate 110 H 62 60 Pulse Rate [ [employer] Director Of [employer] ] Respiratory 16 18 18 Rate Blood Pressure 142/86 159/78 174/87 Blood Pressure [Left Arm] O2 Sat by Pulse 97 95 96 Oximetry 04/17/17 04/17/17 04/17/17 21:52 22:23 23:06 Temperature Pulse Rate 68 68 63 Pulse Rate [ [employer] Director Of [employer] ] Respiratory 17 20 15 Rate Blood Pressure 198/88 168/84 180/84 Blood Pressure [Left Arm] O2 Sat by Pulse 95 95 93 L Oximetry 04/18/17 04/18/17 04/18/17 00:00 00:25 00:33 Temperature Pulse Rate 68 62 Pulse Rate [ Corporate Director Of [employer] ] Respiratory 19 18 Rate Blood Pressure 144/62 Blood Pressure [Left Arm] O2 Sat by Pulse 94 L 96 Oximetry 04/18/17 04/18/17 04/18/17 00:49 01:17 01:47 Temperature Pulse Rate 62 56 L 57 L Pulse Rate [ Corporate Director Of [employer] ] Respiratory 17 18 Rate Blood Pressure 122/82 128/75 Blood Pressure [Left Arm] O2 Sat by Pulse 93 L 92 L Oximetry 04/18/17 04/18/17 04/18/17 03:11 04:00 04:34 Temperature Pulse Rate 53 L 53 L Pulse Rate [ 56 L [employer] Director [employer] ] Respiratory 19 18 Rate Blood Pressure 123/69 111/58 Blood Pressure [Left Arm] O2 Sat by Pulse 94 L 94 L Oximetry 04/18/17 04/18/17 04/18/17 05:07 05:34 06:36 Temperature Pulse Rate 54 L 52 L 60 Pulse Rate [ Corporate Director Of [employer] ] Respiratory 15 18 18 Rate Blood Pressure 101/53 105/52 133/66 Blood Pressure [Left Arm] O2 Sat by Pulse 95 96 98 Oximetry 04/18/17 04/18/17 04/18/17 08:00 11:50 16:15 Temperature 97.5 F L Pulse Rate Pulse Rate [ 55 L 57 L [employer] Director [employer] ] Respiratory 16 18 18 Rate Blood Pressure Blood Pressure 126/68 112/55 [Left Arm] O2 Sat by Pulse 96 96 Oximetry 04/18/17 04/18/17 04/18/17 16:18 16:19 16:26 Temperature 97.4 F L Pulse Rate 68 74 Pulse Rate [ 60 [employer] Director [employer] ] Respiratory 18 Rate Blood Pressure Blood Pressure 160/75 [Left Arm] O2 Sat by Pulse 98 Oximetry 04/18/17 04/18/1718 18:51 18:58 20:00 Temperature 97.5 F L Pulse Rate 60 62 Pulse Rate [ 60 [employer] Director [employer] ] Respiratory 20 Rate Blood Pressure Blood Pressure 126/58 [Left Arm] O2 Sat by Pulse 100 Oximetry 04/19/17 04/19/17 04/19/17 00:00 04:00 08:35 Temperature 98.1 F 97.9 F 97.8 F Pulse Rate Pulse Rate [ 60 54 L 58 L [employer] Director [employer] ] Respiratory 20 18 18 Rate Blood Pressure Blood Pressure 108/53 139/73 126/63 [Left Arm] O2 Sat by Pulse 92 L 97 96 Oximetry 04/19/17 04/19/17 04/19/17 09:05 09:21 11:41 Temperature Pulse Rate 60 68 Pulse Rate [ 60 [employer] Director [employer] ] Respiratory 18 Rate Blood Pressure Blood Pressure 120/70 [Left Arm] O2 Sat by Pulse 91 L Oximetry 04/19/17 04/19/17 04/19/17 12:45 16:00 17:09 Temperature Pulse Rate Pulse Rate [ 64 64 [employer] Director [employer] ] Respiratory 18 16 16 Rate Blood Pressure Blood Pressure 180/90 [Left Arm] O2 Sat by Pulse 94 L Oximetry Total time taken greater than 35 minutes including 18 minutes for counseling and coordination of care. Patient Condition at Discharge: Stable Plan - Discharge Summary Discharge Rx Participant: Yes New Discharge Prescriptions: New Enoxaparin [Lovenox] 100 mg SQ Q12HR 7 Days syringe Spironolactone [Aldactone] 25 mg PO DAILY #30 tab Warfarin [Coumadin] 5 mg PO DAILY #30 tab Continue Lisinopril 40 mg PO HS hydrALAZINE HCL [Apresoline] 25 mg PO BID Glimepiride [Amaryl] 2 mg PO AC-BRKFST Cholecalciferol (Vitamin D3) [Vitamin D3] 2,000 unit PO DAILY Atorvastatin [Lipitor] 80 mg PO HS #90 tab Nitroglycerin Sl Tabs [Nitrostat] 0.4 mg SUBLINGUAL Q5M PRN #25 tab PRN Reason: Chest Pain sitaGLIPtin [Januvia] 100 mg PO DAILY Sertraline [Zoloft] 100 mg PO DAILY metFORMIN HCL [metFORMIN HCL ER] 750 mg PO BID Carvedilol [Coreg] 25 mg PO BID Aspirin 81 mg PO HS cloNIDine HCL [Catapres] 0.2 mg PO BID Insulin Glargine [Lantus] 40 unit SQ HS Furosemide [Lasix] 20 mg PO BID Clopidogrel [Plavix] 75 mg PO HS Discharge Medication List Lisinopril 40 mg PO HS 01/10/16 [History] Glimepiride [Amaryl] 2 mg PO AC-BRKFST 05/23/16 [History] hydrALAZINE HCL [Apresoline] 25 mg PO BID 05/23/16 [History] Cholecalciferol (Vitamin D3) [Vitamin D3] 2,000 unit PO DAILY 08/27/16 [History] Atorvastatin [Lipitor] 80 mg PO HS #90 tab 08/29/16 [Rx] Nitroglycerin Sl Tabs [Nitrostat] 0.4 mg SUBLINGUAL Q5M PRN #25 tab 08/29/16 [Rx ] Aspirin 81 mg PO HS 04/17/17 [History] Carvedilol [Coreg] 25 mg PO BID 04/17/17 [History] Clopidogrel [Plavix] 75 mg PO HS 04/17/17 [History] Furosemide [Lasix] 20 mg PO BID 04/17/17 [History] Insulin Glargine [Lantus] 40 unit SQ HS 04/17/17 [History] Sertraline [Zoloft] 100 mg PO DAILY 04/17/17 [History] cloNIDine HCL [Catapres] 0.2 mg PO BID 04/17/17 [History] metFORMIN HCL [metFORMIN HCL ER] 750 mg PO BID 04/17/17 [History] sitaGLIPtin [Januvia] 100 mg PO DAILY 04/17/17 [History] Enoxaparin [Lovenox] 100 mg SQ Q12HR 7 Days syringe 04/19/17 [Rx] Spironolactone [Aldactone] 25 mg PO DAILY #30 tab 04/19/17 [Rx] Warfarin [Coumadin] 5 mg PO DAILY #30 tab 04/19/17 [Rx] Follow up Appointment(s)/Referral(s): Mina Hudson MD [STAFF PHYSICIAN] - 06/13/17 1:45 pm () Mimi Solomon III, MD [Primary Care Provider] - 04/24/17 1:30 pm (with Veronika) Patient Instructions/Handouts: Pulmonary Embolism (DC), Vitamin K in Foods (DC) , Safe Use of Anticoagulants (DC) Discharge Disposition: HOME SELF-CARE
--- NOTE | 2017-05-06 09:43 | CDI ---
Last Revision, January 2017 Documentation Clarification Form Date: 05/06/17 From: Susana David Stacie Howell, Phy Therapist between 8:30 am & 5 pm Luis Admit Date: 04/17/2017 3:56:00 PM Patient Name: Danica Jackson Visit Number: [id number] Discharge Date: 04/19/17 ATTENTION: The Clinical Documentation Specialists (CDI) and [facility] Coding Staff appreciate your assistance in clarifying documentation. Please respond to the clarification below the line at the bottom and electronically sign. The CDI & [facility] Coding staff will review the response and follow-up if needed. Please note: Queries are made part of the Legal Health Record. If you have any questions, please contact the author of this message via ITS. Dr. South Ren Patient admitted with PE and acute CHF. Echo revealed: left ventricular systolic function is normal with, an EF between 55-60%. Right ventricular systolic pressure, as measured by doppler, is 43.45 mmHg. BNP i s 2180. Chest X Ray: findings suggest CHF with pulmonary vascular congestion. Small effusions with adjacent atelectasis and/or consolidation. Treatment: 04/17 Lasix 20 mg po BID then Lasix 20 mg IV once8 Lasix IV 40 mg Q12HR. In your professional opinion, can you please clarify the acuity and type of CHF if known? Type Systolic Heart Failure: Diastolic Heart Failure: Systolic & Diastolic Heart Failure: AND Acuity Acute Acute on Chronic Heart Failure Chronic Unable to Determine Other, please specify Please continue to document in your progress notes and discharge summary in order to capture severity of illness and risk of mortality. Include clinical findings that support your diagnosis. MTDD
--- NOTE | 2017-05-13 16:52 | P.PN ---
Progress Note - Text Documentation clarification I'm unable to determine if this patient had heart failure. Please clarify with PCP or pulmonology My clinical opinion was pulmonary embolism not acute heart failure
--- NOTE | 2017-05-14 07:14 | CDI ---
Last Revision, January 2017 Documentation Clarification Form Date: 05/14/17 From: Susana David Stacie Howell, Range Scientist between 8:30 am & 5 pm Luis Admit Date: 04/17/2017 3:56:00 PM Patient Name: Danica Jackson Visit Number: [id number] Discharge Date: 04/19/17 ATTENTION: The Clinical Documentation Specialists (CDI) and [facility] Coding Staff appreciate your assistance in clarifying documentation. Please respond to the clarification below the line at the bottom and electronically sign. The CDI & [facility] Coding staff will review the response and follow-up if needed. Please note: Queries are made part of the Legal Health Record. If you have any questions, please contact the author of this message via ITS. Dr. Rupal Ren deferred to you on type and acuity of CHF, the is now there. Patient admitted with PE and acute CHF. Echo revealed: left ventricular systolic function is normal with, an EF between 55-60%. Right ventricular systolic pressure, as measured by doppler, is 43.45 mmHg. BNP i s 2180. Chest X Ray: findings suggest CHF with pulmonary vascular congestion. Small effusions with adjacent atelectasis and/or consolidation. Treatment: 04/17 Lasix 20 mg po BID then Lasix 20 mg IV once04/18 Lasix IV 40 mg Q12HR. In your professional opinion, can you please clarify the acuity and type of CHF if known? Type Systolic Heart Failure: Diastolic Heart Failure: Systolic & Diastolic Heart Failure: AND Acuity Acute Acute on Chronic Chronic Unable to Determine Other, please specify Please continue to document in your progress notes and discharge summary in order to capture severity of illness and risk of mortality. Include clinical findings that support your diagnosis. Acute CHF with possible diastolic dysfunction MTDD
== END 2017-04-19 17:47 | disposition home or self-care (01) | DRG 175 ==
LOC: EC 12:38 → 6SEL 15:56
PROVIDERS: ADMIT Internal Medicine; ATTEND Internal Medicine
DX: I26.99 Other pulmonary embolism without acute cor pulmonale (principal); I50.31 Acute diastolic (congestive) heart failure; E66.01 Morbid (severe) obesity due to excess calories; G35 Multiple sclerosis; I11.0 Hypertensive heart disease with heart failure; I25.10 Atherosclerotic heart disease of native coronary artery without angina pectoris; F41.9 Anxiety disorder, unspecified; F31.9 Bipolar disorder, unspecified; E11.9 Type 2 diabetes mellitus without complications; M06.9 Rheumatoid arthritis, unspecified; G89.29 Other chronic pain; M54.9 Dorsalgia, unspecified; I25.2 Old myocardial infarction; F51.04 Psychophysiologic insomnia; M19.91 Primary osteoarthritis, unspecified site; I73.00 Raynaud's syndrome without gangrene; Z68.39 Body mass index [BMI] 39.0-39.9, adult; Z91.19 Patient's noncompliance with other medical treatment and regimen; Z79.82 Long term (current) use of aspirin; Z79.02 Long term (current) use of antithrombotics/antiplatelets; Z79.4 Long term (current) use of insulin; Z79.899 Other long term (current) drug therapy; Z86.718 Personal history of other venous thrombosis and embolism; Z95.5 Presence of coronary angioplasty implant and graft; Z86.711 Personal history of pulmonary embolism; Z90.49 Acquired absence of other specified parts of digestive tract; Z98.51 Tubal ligation status; Z82.0 Family history of epilepsy and other diseases of the nervous system
CPT/HCPCS: 36415; 71045; 71046; 71275; 80048; 80053; 82150; 82550; 82553; 83690; 83735; 83880; 84484; 85025; 85379; 85610; 85730; 93005; 93306; 93970; 94640; 96361; 96365; 96366; 96375; 96376; 99291

== ENCOUNTER → 2017-05-09 | Outpatient (CLI) | payer OTHER ==
--- NOTE | 2017-05-10 08:08 | MM ---
Reason for exam: screening (asymptomatic). History: Patient is postmenopausal. Physical Findings: A clinical breast exam by your physician is recommended on an annual basis and results should be correlated with mammographic findings. MG Screening Mammo w CAD Bilateral CC, MLO, and XCCL view(s) were taken. No prior studies available for comparison. There are scattered fibroglandular densities. There is no discrete abnormality. ASSESSMENT: Negative, BI-RAD 1 RECOMMENDATION: Routine screening mammogram of both breasts in 1 year.
== END | disposition home or self-care (01) ==
LOC: RADMAMWWP 12:51
PROVIDERS: ATTEND Family Medicine
DX: Z12.31 Encounter for screening mammogram for malignant neoplasm of breast (principal)
CPT/HCPCS: 77067

== ENCOUNTER → 2017-05-11 | Outpatient (CLI) | payer OTHER ==
--- NOTE | 2017-05-11 14:13 | MR ---
EXAMINATION TYPE: MR brain wo/w con DATE OF EXAM: 05/11/2017 COMPARISON: 08/25/2015 HISTORY: Numbness Left Hand, Previous MRI on PACS, Gadavist 10ml TECHNIQUE: Multiplanar, multisequence images of the brain and brainstem is performed without and with IV contras t, utilizing 10 mL intravenous Gadavist . FINDINGS: Diffusion-weighted imaging demonstrates no diagnostic evidence of acute ischemia. Focal areas which a ppear less than 5 mm within the wayne are stable compatible tiny areas remote infarct. Punctate area o f abnormal signal involving the basal ganglia also stable compatible tiny remote lacunar infarct. Midline structures demonstrate normal morphology. The craniocervical junction appears within normal limits. Post contrast images demonstrate no abnormal enhancement. Changes of chronic sinusitis noted. Sella turcica has a normal appearance. WHITE MATTER: There are approximately 15 total areas of abnormal signal seen scattered throughout the white matter bilaterally the largest in the right parietal lobe measuring 1.1 cm. No enhancing lesions. No lesions perpendicular to ventricular system. Patient stable in size, shape and morphology IMPRESSION: 1. Stable white matter changes which are nonspecific. There does appear to be involvement of the estephanie us callosum. Differential diagnosis therefore includes multiple sclerosis and demyelinating process. Microvascular remote ischemia also a consideration correlate clinically. 2. No interval change in the number, size or morphology of the white matter lesions relative to the p rior exam. No enhancing lesions. 3. Tiny areas of remote infarct involving the wayne and basal ganglia as discussed above are stable. 4. No acute intracranial process.
== END | disposition home or self-care (01) ==
LOC: RADMRIMAIN 12:51
PROVIDERS: ATTEND Psychiatry & Neurology Neurology
DX: R90.89 Other abnormal findings on diagnostic imaging of central nervous system (principal); R20.0 Anesthesia of skin; G56.03 Carpal tunnel syndrome, bilateral upper limbs
CPT/HCPCS: 70553; A9581

== ENCOUNTER 2017-05-29 15:08 | Emergency (ER) | payer OTHER ==
[2017-05-29] MEDS ORDERED: SODIUM CHLORIDE 0.9% 1,000 ML IV STA (15:49)
--- NOTE | 2017-05-29 15:59 | ED ---
Chest Pain HPI - General Chief Complaint: Chest Pain Stated Complaint: CHEST PAIN, LOW BLOOD PRESSURE Time Seen by Provider: 05/29/17 15:37 Source: patient, RN notes reviewed Mode of arrival: wheelchair Limitations: no limitations - History of Present Illness Initial Comments: This is a 56-year-old female with a history of pulmonary emboli myocardial infarction and diabetes and obesity who was seen at an outpatient clinic today for diabetic training she was found have blood pressure 90s over 60s. She states she generally has not been feeling well for past 3 days. She has had some chills and some midsternal chest pain. Over the last 3 days she's been in bed a lot. no overt fevers chills or sweats she has some left arm and leg tingling. She also complains some blurry vision MD Complaint: chest pain, other - Related Data Home Medications Medication Instructions Recorded Confirmed Lisinopril 40 mg PO HS 01/10/16 04/17/17 Glimepiride [Amaryl] 2 mg PO AC-BRKFST 05/23/16 04/17/17 hydrALAZINE HCL [Apresoline] 25 mg PO BID 05/23/16 04/17/17 Cholecalciferol (Vitamin D3) 2,000 unit PO DAILY 08/27/16 04/17/17 [Vitamin D3] Aspirin 81 mg PO HS 04/17/17 04/17/17 Carvedilol [Coreg] 25 mg PO BID 04/17/17 04/17/17 Clopidogrel [Plavix] 75 mg PO HS 04/17/17 04/17/17 Furosemide [Lasix] 20 mg PO BID 04/17/17 04/17/17 Insulin Glargine [Lantus] 40 unit SQ HS 04/17/17 04/17/17 Sertraline [Zoloft] 100 mg PO DAILY 04/17/17 04/17/17 cloNIDine HCL [Catapres] 0.2 mg PO BID 04/17/17 04/17/17 metFORMIN HCL [metFORMIN HCL ER] 750 mg PO BID 04/17/17 04/17/17 sitaGLIPtin [Januvia] 100 mg PO DAILY 04/17/17 04/17/17 Previous Rx's Medication Instructions Recorded Atorvastatin [Lipitor] 80 mg PO HS #90 tab 08/29/16 Nitroglycerin Sl Tabs [Nitrostat] 0.4 mg SUBLINGUAL Q5M PRN #25 tab 08/29/16 Enoxaparin [Lovenox] 100 mg SQ Q12HR 7 Days syringe 04/19/17 Spironolactone [Aldactone] 25 mg PO DAILY #30 tab 04/19/17 Warfarin [Coumadin] 5 mg PO DAILY #30 tab 04/19/17 Allergies Allergy/AdvReac Type Severity Reaction Status Date / Time tizanidine AdvReac Hallucinati Verified 05/29/17 15:20 ons Review of Systems ROS Statement: Those systems with pertinent positive or pertinent negative responses have been documented in the HPI. ROS Other: All systems not noted in ROS Statement are negative. EKG Findings - EKG Results: EKG: interpreted by DUNCAN, sinus rhythm (Sinus bradycardia rate of 58. Interval 182 QRS duration 86 QT since QTC of 460/459 poor R-wave progression nonspecific T-wave configuration.) Past Medical History Past Medical History: Chest Pain / Angina, Diabetes Mellitus, Hypertension, Musculoskeletal Disorder, Osteoarthritis (OA), Pulmonary Embolus (PE), Rheumatoid Arthritis (RA), Vascular Disorder Additional Past Medical History / Comment(s): PE in Left lung d/t a right DVT 2007. ANEMIA. HEART MURMUR. CHRONIC BACK PAIN. RAYNAUDS. Chronic insomnia. SOB. 2 diabetes 08/29/15. Ddd chronic back pain. Multiple sclerosis History of Any Multi-Drug Resistant Organisms: None Reported Past Surgical History: Adenoidectomy, Cholecystectomy, Tonsillectomy, Tubal Ligation Additional Past Surgical History / Comment(s): CORY FUNDOPLASTY. REPAIR OF HOLE IN DIAPHRAGM. EGD. PAIN CINIC PROCEDURE Past Anesthesia/Blood Transfusion Reactions: No Reported Reaction Additional Past Anesthesia/Blood Transfusion Reaction / Comment(s): PT ADOPTED- FAMILY HX UNKNOWN Past Psychological History: Anxiety, Bipolar Smoking Status: Never smoker Past Alcohol Use History: None Reported Past Drug Use History: None Reported - Past Family History Father Family Medical History: Unable to Obtain Additional Family Medical History / Comment(s): PT ADOPTED-FAMILY HX UNKNOWN Son(s) Additional Family Medical History / Comment(s): Patient has 3 children and 2 history of cerebral palsy. One child has no major medical problems. General Exam - General Exam Comments Initial Comments: This is a well-developed well-nourished awake alert oriented 3 female Limitations: no limitations General appearance: alert, in no apparent distress Head exam: Present: atraumatic, normocephalic, normal inspection Eye exam: Present: normal appearance, PERRL, EOMI. Absent: scleral icterus, conjunctival injection, periorbital swelling ENT exam: Present: mucous membranes dry Neck exam: Present: normal inspection. Absent: tenderness, meningismus, lymphadenopathy Respiratory exam: Present: normal lung sounds bilaterally, chest wall tenderness (Reproducible tenderness palpation). Absent: respiratory distress, wheezes, rales, rhonchi, stridor Cardiovascular Exam: Present: regular rate, normal rhythm, normal heart sounds. Absent: systolic murmur, diastolic murmur, rubs, gallop, clicks GI/Abdominal exam: Present: soft, tenderness (Mild epigastric tenderness palpation no guarding or rebound she does demonstrate obese abdomen.), normal bowel sounds. Absent: distended, guarding, rebound, rigid Extremities exam: Present: normal inspection, full ROM, normal capillary refill. Absent: tenderness, pedal edema, joint swelling, calf tenderness Back exam: Present: normal inspection Neurological exam: Present: alert, oriented X3, CN II-XII intact Psychiatric exam: Present: normal affect, normal mood Skin exam: Present: warm, dry, intact, normal color. Absent: rash Course Vital Signs 05/29/17 05/29/17 05/29/17 15:18 16:33 18:04 Temperature 98.2 F Pulse Rate 63 57 L 66 Respiratory 20 18 18 Rate Blood Pressure 105/64 126/68 116/68 O2 Sat by Pulse 98 99 100 Oximetry - Reevaluation(s) Reevaluation #1: 05/29/17 19:47 Patient did have increased pain in her chest did not respond to nitroglycerin EKG shows sinus bradycardia 57. Interval 194 QRS 88 QT since QTC of 518/504 poor R-wave progression no change from the earlier one. Chest Pain MDM - MDM I did review the imaging and report no acute findings patient gets some relief from the medication was given but not to nitroglycerin. Patient does have evidence of reproducible chest pain. This is not totally ruling out cardiac etiology however. I did discuss the findings with the patient and her I did recommend admission the patient does not want to be admitted tonight she will return if there is any problems she'll follow-up with her doctor. She does have nitroglycerin at home. We did discuss the timing of using it. Disposition Clinical Impression: Costalchondritis, Chest wall syndrome Disposition: HOME SELF-CARE Condition: Good Instructions: Costochondritis (ED) Is patient prescribed a controlled substance at discharge?: No Referrals: Mimi Solomon III, MD [Primary Care Provider] - 1-2 days
[2017-05-29 16:16] LABS: Basophils % (A) 1 %; Eosinophils # (A) 0.2 k/uL (0-0.7); Eosinophils % (A) 2 %; HCT 39.5 % (34.0-46.0); HGB 13.3 gm/dL (11.4-16.0); Lymphocytes # (A) 2.9 k/uL (1.0-4.8); Lymphocytes % (A) 30 %; MCH 29.4 pg (25.0-35.0); MCHC 33.6 g/dL (31.0-37.0); MCV 87.3 fL (80.0-100.0); Monocytes # (A) 0.6 k/uL (0-1.0); Monocytes % (A) 6 %; Neutrophils # (A) 5.7 k/uL (1.3-7.7); Neutrophils % (A) 60 %; Platelet Count 237 k/uL (150-450); RBC 4.52 m/uL (3.80-5.40); RDW 13.7 % (11.5-15.5); WBC 9.5 k/uL (3.8-10.6)
[2017-05-29 16:25] LABS: Calcium 9.8 mg/dL (8.4-10.2); INR 1.1 (<1.2); Magnesium 1.6 mg/dL (1.6-2.3); Partial Thromboplastin Time 23.8 sec (22.0-30.0); Potassium 4.1 mmol/L (3.5-5.1); Prothrombin Time 10.3 sec (9.0-12.0); Total Bilirubin 0.3 mg/dL (0.2-1.3); Total Protein 6.7 g/dL (6.3-8.2)
[2017-05-29 16:34] VITALS: RESP 18
--- NOTE | 2017-05-29 16:34 | XR ---
EXAMINATION TYPE: XR chest 2V DATE OF EXAM: 05/29/2017 COMPARISON: 04/19/2017 HISTORY: 56-year-old female with chest pain TECHNIQUE: AP and lateral views FINDINGS: Heart normal size. Aorta and pulmonary vasculature within normal limits. Mild interstitial prominence is improved from prior exam. No consolidation or pleural effusion. IMPRESSION: Mild interstitial prominence improved from prior exam. Correlate to exclude some residual mild pulmon yared vascular congestion. Otherwise, no acute process.
[2017-05-29 16:46] LABS: Creatine Kinase 57 U/L (30-135)
[2017-05-29 16:59] LABS: Creatine Kinase MB 0.4 ng/mL (0.0-2.4); Troponin I <0.012 ng/mL (0.000-0.034)
[2017-05-29] MEDS ORDERED: NITROGLYCERIN SL TABS 0.4 MG TAB SUBLINGUAL STA (17:42)
[2017-05-29] MEDS ORDERED: MORPHINE SULFATE 4MG/4ML SYRG IVP STA (18:21)
[2017-05-29 19:57] VITALS: BP 114/57; PULSE 58; TEMP 97.7
== END 2017-05-29 19:56 | disposition home or self-care (01) ==
LOC: EC 15:08
DX: M94.0 Chondrocostal junction syndrome [Tietze] (principal); H53.8 Other visual disturbances; R68.83 Chills (without fever); R20.2 Paresthesia of skin; I10 Essential (primary) hypertension; E11.9 Type 2 diabetes mellitus without complications; M19.90 Unspecified osteoarthritis, unspecified site; E66.9 Obesity, unspecified; F31.9 Bipolar disorder, unspecified; F41.9 Anxiety disorder, unspecified; I25.2 Old myocardial infarction; Z79.02 Long term (current) use of antithrombotics/antiplatelets; Z79.4 Long term (current) use of insulin; Z79.82 Long term (current) use of aspirin; Z79.899 Other long term (current) drug therapy; Z88.8 Allergy status to other drugs, medicaments and biological substances; Z86.711 Personal history of pulmonary embolism; Z68.37 Body mass index [BMI] 37.0-37.9, adult
CPT/HCPCS: 36415; 93005; 83880; 80053; 82150; 82550; 82553; 83690; 83735; 84484; 85025; 85610; 85730; 71046; 99285; 96374; 96361 ×3; J2270

== ENCOUNTER 2017-06-03 14:35 | Emergency (ER) | payer OTHER ==
[2017-06-03] MEDS ORDERED: SODIUM CHLORIDE 0.9% 500 ML IV ONE (14:59)
--- NOTE | 2017-06-03 15:09 | ED ---
Female Urogenital HPI - General Chief complaint: Vaginal Bleeding Stated complaint: Vag bleeding Time Seen by Provider: 06/03/17 14:46 Source: patient Mode of arrival: ambulatory Limitations: no limitations - History of Present Illness Initial comments: Is a 56-year-old female to history of PE on Coumadin who presents emergency department for vaginal bleeding that is been going on for last 3 days. She states that it started out heavier and has since improved. She states that she noticed some clots in the toilet after urinating. She's been using adult diapers because she did not have any pads or tampons. She states that her last period was in 2013. She does admit to some lightheadedness and abdominal bloating however no abdominal pain. No nausea, vomiting, or diarrhea. He states that she went to her primary care doctor's office today and told him about her symptoms and they checked her INR and it was 1. She was notified that her blood was "too thick" so she was directed to the emergency department. Patient otherwise has no other complaints. No chest pain or shortness of breath. - Related Data Home Medications Medication Instructions Recorded Confirmed Lisinopril 40 mg PO HS 01/10/16 06/03/17 Glimepiride [Amaryl] 2 mg PO AC-BRKFST 05/23/16 06/03/17 hydrALAZINE HCL [Apresoline] 25 mg PO BID 05/23/16 06/03/17 Cholecalciferol (Vitamin D3) 2,000 unit PO DAILY 08/27/16 06/03/17 [Vitamin D3] Aspirin 81 mg PO HS 04/17/17 06/03/17 Carvedilol [Coreg] 25 mg PO BID 04/17/17 06/03/17 Clopidogrel [Plavix] 75 mg PO HS 04/17/17 06/03/17 Furosemide [Lasix] 20 mg PO BID 04/17/17 06/03/17 Insulin Glargine [Lantus] 32 unit SQ HS 04/17/17 06/03/17 Sertraline [Zoloft] 100 mg PO DAILY 04/17/17 06/03/17 cloNIDine HCL [Catapres] 0.2 mg PO BID 04/17/17 06/03/17 metFORMIN HCL [metFORMIN HCL ER] 750 mg PO BID 04/17/17 06/03/17 sitaGLIPtin [Januvia] 100 mg PO DAILY 04/17/17 06/03/17 Warfarin [Coumadin] 5 mg PO W/SUPPER 06/03/17 06/03/17 traZODone HCL [Desyrel] 50 - 100 mg PO HS 06/03/17 06/03/17 Previous Rx's Medication Instructions Recorded Atorvastatin [Lipitor] 80 mg PO HS #90 tab 08/29/16 Nitroglycerin Sl Tabs [Nitrostat] 0.4 mg SUBLINGUAL Q5M PRN #25 tab 08/29/16 Spironolactone [Aldactone] 25 mg PO DAILY #30 tab 04/19/17 Enoxaparin [Lovenox] 100 mg SQ Q12H #14 syr 06/03/17 Allergies Allergy/AdvReac Type Severity Reaction Status Date / Time tizanidine AdvReac Hallucinati Verified 06/03/17 15:07 ons Review of Systems ROS Statement: Those systems with pertinent positive or pertinent negative responses have been documented in the HPI. ROS Other: All systems not noted in ROS Statement are negative. Past Medical History Past Medical History: Chest Pain / Angina, Diabetes Mellitus, Hypertension, Musculoskeletal Disorder, Osteoarthritis (OA), Pulmonary Embolus (PE), Rheumatoid Arthritis (RA), Vascular Disorder Additional Past Medical History / Comment(s): PE in Left lung d/t a right DVT 2007. ANEMIA. HEART MURMUR. CHRONIC BACK PAIN. RAYNAUDS. Chronic insomnia. SOB. 2 diabetes 08/29/15. Ddd chronic back pain. Multiple sclerosis History of Any Multi-Drug Resistant Organisms: None Reported Past Surgical History: Adenoidectomy, Cholecystectomy, Tonsillectomy, Tubal Ligation Additional Past Surgical History / Comment(s): CORY FUNDOPLASTY. REPAIR OF HOLE IN DIAPHRAGM. EGD. PAIN CINIC PROCEDURE Past Anesthesia/Blood Transfusion Reactions: No Reported Reaction Additional Past Anesthesia/Blood Transfusion Reaction / Comment(s): PT ADOPTED- FAMILY HX UNKNOWN Past Psychological History: Anxiety, Bipolar Smoking Status: Never smoker Past Alcohol Use History: None Reported Past Drug Use History: None Reported - Past Family History Father Family Medical History: Unable to Obtain Additional Family Medical History / Comment(s): PT ADOPTED-FAMILY HX UNKNOWN Son(s) Additional Family Medical History / Comment(s): Patient has 3 children and 2 history of cerebral palsy. One child has no major medical problems. General Exam - General Exam Comments Initial Comments: Constitutional: Awake alert Appears comfortable Head: Normocephalic atraumatic Eyes: no conjunctival injection No scleral icterus EOMI Neck: No JVD Supple Heart: Regular rate rhythm normal S1-S2 no murmurs Lungs: Clear to auscultation bilaterally No wheezing No rales Abdomen: Soft nondistended nontender : Speculum exam revealed very scant amount of bleeding. Appeared to be coagulated blood in the vaginal canal. No active bleeding seen from the cervical os. No vaginal lesions. Extremities: Non edematous DP pulses intact Radial pulses intact Neuro: A&Ox3 No focal neurologic deficits Psych: Appropriate mood and affect Limitations: no limitations Course Vital Signs 06/03/17 06/03/17 14:42 16:06 Temperature 98.6 F 98.7 F Pulse Rate 67 73 Respiratory 18 16 Rate Blood Pressure 109/63 115/63 O2 Sat by Pulse 99 99 Oximetry Medical Decision Making - Medical Decision Making Is a 56-year-old female came in emergency department for vaginal bleeding and subtherapeutic INR. The patient was evaluated with blood work which was unremarkable except for an INR of 1 when it should be 2-3. Pelvic examination revealed a small amount of blood within the vaginal canal however no active bleeding was noted. Patient otherwise was hemodynamically stable. I did give the patient 1 dose of Lovenox while in the emergency department. She is going to be sent home with Lovenox twice a day and told to continue with her Coumadin. She's can follow-up with her primary doctor tomorrow for reevaluation. I did tell her that she needs to follow-up with an [employer] due to this vaginal bleeding that she likely needs an endometrial biopsy. Can return emergency Department if she has recurring or worsening symptoms especially if she is getting lightheaded or dizzy. All questions were answered. - Lab Data Result diagrams: 06/03/17 15:21 06/03/17 15:21 Lab Results 06/03/17 06/03/17 06/03/17 Range/Units 15:21 15:21 15:21 WBC 8.3 (3.8-10.6) k/uL RBC 4.60 (3.80-5.40) m/uL Hgb 13.4 (11.4-16.0) gm/dL Hct 39.7 (34.0-46.0) % MCV 86.4 (80.0-100.0) fL MCH 29.0 (25.0-35.0) pg MCHC 33.6 (31.0-37.0) g/dL RDW 13.5 (11.5-15.5) % Plt Count 274 (150-450) k/uL Neutrophils % 53 % Lymphocytes % 35 % Monocytes % 7 % Eosinophils % 3 % Basophils % 1 % Neutrophils # 4.4 (1.3-7.7) k/uL Lymphocytes # 2.9 (1.0-4.8) k/uL Monocytes # 0.6 (0-1.0) k/uL Eosinophils # 0.2 (0-0.7) k/uL Basophils # 0.1 (0-0.2) k/uL PT 9.5 (9.0-12.0) sec INR 1.0 (<1.2) APTT 22.8 (22.0-30.0) sec Sodium 143 (137-145) mmol/L Potassium 4.0 (3.5-5.1) mmol/L Chloride 103 (98-107) mmol/L Carbon Dioxide 28 (22-30) mmol/L Anion Gap 12 mmol/L BUN 14 (7-17) mg/dL Creatinine 0.90 (0.52-1.04) mg/dL Est GFR (CKD-EPI)AfAm 84 (>60 ml/min/1.73 sqM) Est GFR (CKD-EPI)NonAf 73 (>60 ml/min/1.73 sqM) Glucose 94 (74-99) mg/dL Calcium 9.7 (8.4-10.2) mg/dL Total Bilirubin 0.3 (0.2-1.3) mg/dL AST 24 (14-36) U/L ALT 38 (9-52) U/L Alkaline Phosphatase 100 (38-126) U/L Total Protein 6.6 (6.3-8.2) g/dL Albumin 4.1 (3.5-5.0) g/dL Disposition Clinical Impression: Vaginal bleeding, Subtherapeutic anticoagulation Disposition: HOME SELF-CARE Condition: Stable Instructions: Dysfunctional Uterine Bleeding (ED) Prescriptions: Enoxaparin [Lovenox] 100 mg SQ Q12H #14 syr Is patient prescribed a controlled substance at d/c from ED?: No Referrals: Mimi Solomon III, MD [Primary Care Provider] - 1-2 days
[2017-06-03 15:30] LABS: Basophils # (A) 0.1 k/uL (0-0.2); Basophils % (A) 1 %; Eosinophils # (A) 0.2 k/uL (0-0.7); Eosinophils % (A) 3 %; HCT 39.7 % (34.0-46.0); HGB 13.4 gm/dL (11.4-16.0); Lymphocytes # (A) 2.9 k/uL (1.0-4.8); Lymphocytes % (A) 35 %; MCHC 33.6 g/dL (31.0-37.0); MCV 86.4 fL (80.0-100.0); Mean Platelet Volume 7.1; Monocytes # (A) 0.6 k/uL (0-1.0); Monocytes % (A) 7 %; Neutrophils # (A) 4.4 k/uL (1.3-7.7); Neutrophils % (A) 53 %; Platelet Count 274 k/uL (150-450); RDW 13.5 % (11.5-15.5); WBC 8.3 k/uL (3.8-10.6)
[2017-06-03 15:38] LABS: Albumin 4.1 g/dL (3.5-5.0); Calcium 9.7 mg/dL (8.4-10.2); Total Bilirubin 0.3 mg/dL (0.2-1.3); Total Protein 6.6 g/dL (6.3-8.2)
[2017-06-03 15:40] LABS: Partial Thromboplastin Time 22.8 sec (22.0-30.0); Prothrombin Time 9.5 sec (9.0-12.0)
[2017-06-03] MEDS ORDERED: ENOXAPARIN 100 MG/ML SYRINGE SQ STA (15:42)
[2017-06-03 16:07] VITALS: BP 115/63; PULSE 73; RESP 16; TEMP 98.7
== END 2017-06-03 16:52 | disposition home or self-care (01) ==
LOC: EC 14:35
DX: N93.9 Abnormal uterine and vaginal bleeding, unspecified (principal); R79.1 Abnormal coagulation profile; R42 Dizziness and giddiness; R14.0 Abdominal distension (gaseous); E11.9 Type 2 diabetes mellitus without complications; I10 Essential (primary) hypertension; F31.9 Bipolar disorder, unspecified; F41.9 Anxiety disorder, unspecified; Z86.711 Personal history of pulmonary embolism; Z86.718 Personal history of other venous thrombosis and embolism; Z79.82 Long term (current) use of aspirin; Z79.4 Long term (current) use of insulin; Z79.01 Long term (current) use of anticoagulants; Z79.899 Other long term (current) drug therapy; Z88.8 Allergy status to other drugs, medicaments and biological substances; Z98.51 Tubal ligation status
CPT/HCPCS: 36415; 80053; 85025; 85610; 85730; 99284; 96372; J1650

== ENCOUNTER 2017-06-14 13:48 | Observation (INO) | payer OTHER ==
[2017-06-14 15:20] LABS: Basophils # (A) 0.1 k/uL (0-0.2); Basophils % (A) 1 %; Eosinophils # (A) 0.3 k/uL (0-0.7); Eosinophils % (A) 4 %; HGB 13.8 gm/dL (11.4-16.0); Lymphocytes # (A) 2.3 k/uL (1.0-4.8); Lymphocytes % (A) 26 %; MCH 30.5 pg (25.0-35.0); MCHC 35.5 g/dL (31.0-37.0); MCV 85.8 fL (80.0-100.0); Mean Platelet Volume 6.7; Monocytes # (A) 0.4 k/uL (0-1.0); Monocytes % (A) 5 %; Neutrophils # (A) 5.4 k/uL (1.3-7.7); Neutrophils % (A) 63 %; Platelet Count 221 k/uL (150-450); RBC 4.54 m/uL (3.80-5.40); RDW 14.1 % (11.5-15.5); WBC 8.7 k/uL (3.8-10.6)
[2017-06-14] MEDS ORDERED: SODIUM CHLORIDE 0.9% 1,000 ML IV STA (15:30)
--- NOTE | 2017-06-14 15:42 | ED ---
General Adult HPI - General Source: patient, RN notes reviewed, old records reviewed Mode of arrival: ambulatory Limitations: no limitations <Castro Turpin - Last Filed: 06/14/17 19:20> <Prateek Yuen - Last Filed: 06/14/17 20:05> - General Chief complaint: Vaginal Bleeding Stated complaint: vag bleeding Time Seen by Provider: 06/14/17 15:18 - History of Present Illness Initial comments: Patient 56-year-old female presenting to the emergency room today with a chief complaint of vaginal bleeding over the last 2 days. Patient states that she did have episode of bleeding 3 weeks ago was seen here in the emergency room. Patient states that she's been unable to follow-up with the SENIOR SUPPLY CHAIN ANALYST. Patient states that she went through menopause 4 years ago had not had menstral cycle until 3 weeks ago. Patient does admit to some lower abdominal pain. Describes it as constant cramping type pain. Patient denies any other complaints or symptoms at this time. Patient denies any recent fever, chills, shortness of breath, chest pain, back pain, nausea or vomiting, numbness or tingling, dysuria or hematuria, constipation or diarrhea, headaches or visual changes, or any other complaints. (Castro Turpin) - Related Data Home Medications Medication Instructions Recorded Confirmed Lisinopril 20 mg PO HS 01/10/16 06/14/17 Glimepiride [Amaryl] 1 mg PO AC-BRKFST 05/23/16 06/14/17 hydrALAZINE HCL [Apresoline] 25 mg PO BID 05/23/16 06/14/17 Cholecalciferol (Vitamin D3) 2,000 unit PO DAILY 08/27/16 06/14/17 [Vitamin D3] Aspirin 81 mg PO HS 04/17/17 06/14/17 Carvedilol [Coreg] 25 mg PO BID 04/17/17 06/14/17 Clopidogrel [Plavix] 75 mg PO HS 04/17/17 06/14/17 Furosemide [Lasix] 20 mg PO BID 04/17/17 06/14/17 Insulin Glargine [Lantus] 25 unit SQ HS 04/17/17 06/14/17 Sertraline [Zoloft] 100 mg PO DAILY 04/17/17 06/14/17 cloNIDine HCL [Catapres] 0.2 mg PO BID 04/17/17 06/14/17 metFORMIN HCL [metFORMIN HCL ER] 750 mg PO BID 04/17/17 06/14/17 sitaGLIPtin [Januvia] 100 mg PO DAILY 04/17/17 06/14/17 traZODone HCL [Desyrel] 50 - 100 mg PO HS 06/03/17 06/14/17 Previous Rx's Medication Instructions Recorded Atorvastatin [Lipitor] 80 mg PO HS #90 tab 08/29/16 Nitroglycerin Sl Tabs [Nitrostat] 0.4 mg SUBLINGUAL Q5M PRN #25 tab 08/29/16 Spironolactone [Aldactone] 25 mg PO DAILY #30 tab 04/19/17 Allergies Allergy/AdvReac Type Severity Reaction Status Date / Time tizanidine AdvReac Hallucinati Verified 06/14/17 15:55 ons Review of Systems ROS Other: All systems not noted in ROS Statement are negative. <Castro Turpin - Last Filed: 06/14/17 19:20> ROS Other: All systems not noted in ROS Statement are negative. <Prateek Yuen - Last Filed: 06/14/17 20:05> ROS Statement: Those systems with pertinent positive or pertinent negative responses have been documented in the HPI. Past Medical History Past Medical History: Chest Pain / Angina, Diabetes Mellitus, Hypertension, Musculoskeletal Disorder, Osteoarthritis (OA), Pulmonary Embolus (PE), Rheumatoid Arthritis (RA), Vascular Disorder Additional Past Medical History / Comment(s): PE in Left lung d/t a right DVT 2007. ANEMIA. HEART MURMUR. CHRONIC BACK PAIN. RAYNAUDS. Chronic insomnia. SOB. 2 diabetes 08/29/15. Ddd chronic back pain. Multiple sclerosis History of Any Multi-Drug Resistant Organisms: None Reported Past Surgical History: Adenoidectomy, Cholecystectomy, Tonsillectomy, Tubal Ligation Additional Past Surgical History / Comment(s): CORY FUNDOPLASTY. REPAIR OF HOLE IN DIAPHRAGM. EGD. PAIN CINIC PROCEDURE Past Anesthesia/Blood Transfusion Reactions: No Reported Reaction Additional Past Anesthesia/Blood Transfusion Reaction / Comment(s): PT ADOPTED- FAMILY HX UNKNOWN Past Psychological History: Anxiety, Bipolar Smoking Status: Never smoker Past Alcohol Use History: None Reported Past Drug Use History: None Reported - Past Family History Father Family Medical History: Unable to Obtain Additional Family Medical History / Comment(s): PT ADOPTED-FAMILY HX UNKNOWN Son(s) Additional Family Medical History / Comment(s): Patient has 3 children and 2 history of cerebral palsy. One child has no major medical problems. <Castro Turpin - Last Filed: 06/14/17 19:20> General Exam Limitations: no limitations <Castro Turpin - Last Filed: 06/14/17 19:20> <Prateek Yuen - Last Filed: 06/14/17 20:05> - General Exam Comments Initial Comments: General: The patient is awake and alert, in no distress, and does not appear acutely ill. Eye: Pupils are equal, round and reactive to light, extra-ocular movements are intact. No nystagmus. There is normal conjunctiva bilaterally. No signs of icterus. Ears, nose, mouth and throat: There are moist mucous membranes and no oral lesions. Neck: The neck is supple, there is no tenderness or JVD. Cardiovascular: There is a regular rate and rhythm. No murmur, rub or gallop is appreciated. Respiratory: Lungs are clear to auscultation, respirations are non-labored, breath sounds are equal. No wheezes, stridor, rales, or rhonchi. Gastrointestinal: Abdomen soft on palpation. There is mild tenderness to the lower abdomen on palpation. No rebound tenderness. No guarding. Musculoskeletal: Normal ROM, no tenderness. Strength 5/5. Sensation intact. Pulses equal bilaterally 2+. Neurological: A&O x 3. CN II-XII intact, There are no obvious motor or sensory deficits. Coordination appears grossly intact. Speech is normal. Skin: Skin is warm and dry and no rashes or lesions are noted. Psychiatric: Cooperative, appropriate mood & affect, normal judgment. (Castro Turpin) Course <Castro Turpin - Last Filed: 06/14/17 19:20> <Prateek Yuen - Last Filed: 06/14/17 20:05> Vital Signs 06/14/17 06/14/17 06/14/17 14:18 17:41 19:10 Temperature 98.2 F 97 F L Pulse Rate 70 65 78 Respiratory 18 18 24 Rate Blood Pressure 182/93 206/109 214/98 O2 Sat by Pulse 97 99 97 Oximetry 06/14/17 19:20 Temperature Pulse Rate 63 Respiratory 18 Rate Blood Pressure 170/77 O2 Sat by Pulse 98 Oximetry - Reevaluation(s) Reevaluation #1: 06/14/17 18:50 Case is discussed with SENIOR SUPPLY CHAIN ANALYST telecommunication equipment repairer for Dr. Martha Galloway who states that patient has not technically seen anyone in their office and states that they're currently not telecommunication equipment repairer today. Recommend calling On-call SENIOR SUPPLY CHAIN ANALYST. 06/14/17 19:06 Case discussed with on-call SENIOR SUPPLY CHAIN ANALYST Dr. Wolfe. Recommends that patient may follow-up outpatient calling The office Saturday. 06/14/17 19:14 Patient reexamined at this time states she is experiencing so chest pain. EKG pending at this time. 06/14/17 19:20 EKG reviewed showing no acute changes at this time. Cardiac enzymes currently pending. Patient will be given aspirin and nitro here the emergency room continued to be monitored. Patient's blood pressure has been elevated in the emergency room initial improvement this time as patient was given her at home medication. She did not take her medication of Process morning. Patient will be continued to be monitored closely. (Castro Turpin) EKG Findings - EKG Comments: EKG Findings:: EKG performed at 1916: Shows normal sinus rhythm at 67 beats per minute. HI interval 186. QRS 78. QT/QTc 426/450. No acute changes. <Castro Turpin - Last Filed: 06/14/17 19:20> Medical Decision Making - Lab Data Result diagrams: 06/14/17 15:11 06/14/17 15:11 <Castro Turpin - Last Filed: 06/14/17 19:20> - Lab Data Result diagrams: 06/14/17 15:11 06/14/17 15:11 <Prateek Yuen - Last Filed: 06/14/17 20:05> - Medical Decision Making The patient was being seen here for vaginal bleeding. And as examination was being completed the patient did complain of chest pain. EKG was done showing no acute changes and similar to one she had done several weeks ago. Patient's troponin less than 0.012. The patient was given aspirin and sublingual nitro here. She is already on Plavix. Patient will be admitted to [facility] hospitalist group. I discussed with the patient at bedside her complaints, chest x-ray lab results and EKG findings and comparing this EKG to one done just several weeks ago. (Prateek Yuen) - Lab Data Lab Results 06/14/17 06/14/17 06/14/17 Range/Units 15:11 15:11 15:11 WBC 8.7 (3.8-10.6) k/uL RBC 4.54 (3.80-5.40) m/uL Hgb 13.8 (11.4-16.0) gm/dL Hct 39.0 (34.0-46.0) % MCV 85.8 (80.0-100.0) fL MCH 30.5 (25.0-35.0) pg MCHC 35.5 (31.0-37.0) g/dL RDW 14.1 (11.5-15.5) % Plt Count 221 (150-450) k/uL Neutrophils % 63 % Lymphocytes % 26 % Monocytes % 5 % Eosinophils % 4 % Basophils % 1 % Neutrophils # 5.4 (1.3-7.7) k/uL Lymphocytes # 2.3 (1.0-4.8) k/uL Monocytes # 0.4 (0-1.0) k/uL Eosinophils # 0.3 (0-0.7) k/uL Basophils # 0.1 (0-0.2) k/uL PT (9.0-12.0) sec INR (<1.2) APTT (22.0-30.0) sec Sodium 144 (137-145) mmol/L Potassium 4.2 (3.5-5.1) mmol/L Chloride 108 H (98-107) mmol/L Carbon Dioxide 23 (22-30) mmol/L Anion Gap 13 mmol/L BUN 10 (7-17) mg/dL Creatinine 0.66 (0.52-1.04) mg/dL Est GFR (CKD-EPI)AfAm >90 (>60 ml/min/1.73 sqM) Est GFR (CKD-EPI)NonAf >90 (>60 ml/min/1.73 sqM) Glucose 106 H (74-99) mg/dL Calcium 9.5 (8.4-10.2) mg/dL Total Bilirubin 0.3 (0.2-1.3) mg/dL AST 49 H (14-36) U/L ALT 65 H (9-52) U/L Alkaline Phosphatase 119 (38-126) U/L Total Creatine Kinase 102 (30-135) U/L CK-MB (CK-2) 0.8 (0.0-2.4) ng/mL CK-MB (CK-2) Rel Index 0.8 Troponin I 0.012 (0.000-0.034) ng/mL Total Protein 6.5 (6.3-8.2) g/dL Albumin 4.0 (3.5-5.0) g/dL Urine Color Urine Appearance (Clear) Urine pH (5.0-8.0) Ur Specific [place] (1.001-1.035) Urine Protein (Negative) Urine Glucose (UA) (Negative) Urine Ketones (Negative) Urine Blood (Negative) Urine Nitrite (Negative) Urine Bilirubin (Negative) Urine Urobilinogen (<2.0) mg/dL Ur Leukocyte Esterase (Negative) Urine RBC (0-5) /hpf Urine WBC (0-5) /hpf Urine Bacteria (None) /hpf Urine Mucus (None) /hpf 06/14/17 06/14/17 Range/Units 15:45 17:30 WBC (3.8-10.6) k/uL RBC (3.80-5.40) m/uL Hgb (11.4-16.0) gm/dL Hct (34.0-46.0) % MCV (80.0-100.0) fL MCH (25.0-35.0) pg MCHC (31.0-37.0) g/dL RDW (11.5-15.5) % Plt Count (150-450) k/uL Neutrophils % % Lymphocytes % % Monocytes % % Eosinophils % % Basophils % % Neutrophils # (1.3-7.7) k/uL Lymphocytes # (1.0-4.8) k/uL Monocytes # (0-1.0) k/uL Eosinophils # (0-0.7) k/uL Basophils # (0-0.2) k/uL PT 9.8 (9.0-12.0) sec INR 1.0 (<1.2) APTT 23.2 (22.0-30.0) sec Sodium (137-145) mmol/L Potassium (3.5-5.1) mmol/L Chloride (98-107) mmol/L Carbon Dioxide (22-30) mmol/L Anion Gap mmol/L BUN (7-17) mg/dL Creatinine (0.52-1.04) mg/dL Est GFR (CKD-EPI)AfAm (>60 ml/min/1.73 sqM) Est GFR (CKD-EPI)NonAf (>60 ml/min/1.73 sqM) Glucose (74-99) mg/dL Calcium (8.4-10.2) mg/dL Total Bilirubin (0.2-1.3) mg/dL AST (14-36) U/L ALT (9-52) U/L Alkaline Phosphatase (38-126) U/L Total Creatine Kinase (30-135) U/L CK-MB (CK-2) (0.0-2.4) ng/mL CK-MB (CK-2) Rel Index Troponin I (0.000-0.034) ng/mL Total Protein (6.3-8.2) g/dL Albumin (3.5-5.0) g/dL Urine Color Yellow Urine Appearance Clear (Clear) Urine pH 6.0 (5.0-8.0) Ur Specific [place] 1.014 (1.001-1.035) Urine Protein Trace H (Negative) Urine Glucose (UA) Negative (Negative) Urine Ketones Negative (Negative) Urine Blood Large H (Negative) Urine Nitrite Negative (Negative) Urine Bilirubin Negative (Negative) Urine Urobilinogen <2.0 (<2.0) mg/dL Ur Leukocyte Esterase Small H (Negative) Urine RBC >182 H (0-5) /hpf Urine WBC 30 H (0-5) /hpf Urine Bacteria Rare H (None) /hpf Urine Mucus Rare H (None) /hpf Disposition <Castro Turpin - Last Filed: 06/14/17 19:20> <Prateek Yuen - Last Filed: 06/14/17 20:05> Clinical Impression: Unstable angina, Dysfunctional uterine bleeding Disposition: ADMITTED IP TO THIS [facility] Condition: Fair Referrals: Mimi Solomon III, MD [Primary Care Provider] - 1-2 days
[2017-06-14 15:48] LABS: ALT 65 U/L (9-52); AST 49 U/L (14-36); Alkaline Phosphatase 119 U/L (38-126); Anion Gap 13 mmol/L; Blood Urea Nitrogen 10 mg/dL (7-17); Calcium 9.5 mg/dL (8.4-10.2); Carbon Dioxide 23 mmol/L (22-30); Chloride 108 mmol/L (98-107); Glucose 106 mg/dL (74-99); Potassium 4.2 mmol/L (3.5-5.1); Sodium 144 mmol/L (137-145); Total Bilirubin 0.3 mg/dL (0.2-1.3); Total Protein 6.5 g/dL (6.3-8.2)
[2017-06-14 16:08] LABS: Partial Thromboplastin Time 23.2 sec (22.0-30.0); Prothrombin Time 9.8 sec (9.0-12.0)
--- NOTE | 2017-06-14 16:50 | US ---
EXAMINATION TYPE: US transvaginal DATE OF EXAM: 06/14/2017 COMPARISON: NONE CLINICAL HISTORY: Vaginal bleeding. LMP 4 years ago, 2nd episode of bleeding started today TECHNIQUE: TV. Date of LMP: 4 years ago EXAM MEASUREMENTS: Uterus: 10.5 x 6.4 x 7.2 cm Endometrial Stripe: 3.6 cm Right Ovary: not seen Left Ovary: not seen 1. Uterus: Anteverted enlarged with at least 2 fibroids, left sided fibroid =4.0cm, right sided fi broid = 2.6cm 2. Endometrium: thickened 3. Right Ovary: not seen due to atrophy and bowel gas 4. Left Ovary: not seen due to atrophy and bowel gas 5. Bilateral Adnexa: wnl 6. Posterior cul-de-sac: wnl Markedly heterogeneous retroverted uterus is present. There are ill-defined hypoechoic shadowing fibr oids distorting normal uterine anatomy. Endometrium is not well visualized with certainty but is susp ected thickened. No free fluid is seen in pelvic cul-de-sac. IMPRESSION: Suboptimal study with retroverted heterogeneous uterus, shadowing fibroids are suspected, endometrium is not well visualized but felt suspiciously thickened. Consider endometrial sampling to further evaluate.
[2017-06-14 17:43] LABS: Appearance,Urine Clear (Clear); Bacteria,Urine Rare /hpf; Bilirubin,Urine Negative (Negative); Blood,Urine Large (Negative); Color,Urine Yellow; Glucose,Urine (UA) Negative (Negative); Ketones,Urine Negative (Negative); Leukocyte Esterase,Urine Small (Negative); Mucus,Urine Rare /hpf; Nitrite,Urine Negative (Negative); Protein,Urine Trace (Negative); RBC,Urine >182 /hpf (0-5); Specific Gravity,Urine 1.014 (1.001-1.035); Urobilinogen,Urine <2.0 mg/dL (<2.0); WBC,Urine 30 /hpf (0-5)
[2017-06-14] MEDS ORDERED: ONDANSETRON ODT 4 MG TAB PO STA (17:43)
[2017-06-14] MEDS ORDERED: MORPHINE SULFATE 4 MG/ML SYRINGE IVP STA ×2 (17:43→20:14)
[2017-06-14] MEDS ORDERED: cloNIDine HCL 0.2 MG TAB PO STA (18:25)
[2017-06-14] MEDS ORDERED: ASPIRIN 81 MG PO STA (19:20)
[2017-06-14] MEDS ORDERED: NITROGLYCERIN SL TABS 0.4 MG TAB SUBLINGUAL PRN ×2 (19:20→20:10)
[2017-06-14 19:49] LABS: Creatine Kinase MB 0.8 ng/mL (0.0-2.4); Troponin I 0.012 ng/mL (0.000-0.034)
--- NOTE | 2017-06-14 19:59 | XR ---
EXAMINATION: XR chest 2V DATE AND TIME: 06/14/2017 7:37 PM ORDERING PROVIDER: Castro Turpin CLINICAL INDICATION: pain; dyspnea TECHNIQUE: The soft tissues are negative for radiopaque foreign bodies. The soft tissues are also neg ative for emphysema. Left thumb 3 views negative for fracture. 01/09/2017 COMPARISON: DESCRIPTION: The lungs are clear. The pleural spaces are negative. The cardiac silhouette is not enlarged. The mediastinal and pleural silhouettes are unremarkable. The skeletal structures are intact without focal findings. The soft tissues are prominent. IMPRESSION: NO ACUTE PROCESS.
[2017-06-14] MEDS ORDERED: NALOXONE 0.4 MG/ML 1 ML VIAL IV PRN (20:05)
[2017-06-14] MEDS ORDERED: ACETAMINOPHEN TAB 325 MG TAB PO PRN (20:05)
[2017-06-14] MEDS ORDERED: NITROGLYCERIN OINT 1 INCH/GM PACKET TOPICAL STA (20:14)
[2017-06-14] MEDS ORDERED: SODIUM CHLORIDE 0.9% 1,000 ML IV SCH (20:15)
[2017-06-14 20:51] LABS: Glucose,Whole Blood 113 mg/dL (75-99)
[2017-06-14] MEDS ORDERED: INSULIN DETEMIR 100 UNIT/ML 10 ML VIAL SQ SCH (21:00)
[2017-06-14] MEDS ORDERED: LISINOPRIL 20 MG TAB PO SCH (21:00)
[2017-06-14] MEDS ORDERED: CLOPIDOGREL 75 MG TAB PO SCH (21:00)
[2017-06-14] MEDS ORDERED: cloNIDine HCL 0.2 MG TAB PO SCH (21:00)
[2017-06-14] MEDS ORDERED: traZODone HCL 50 MG TAB PO SCH ×2 (21:00→21:30)
[2017-06-14] MEDS ORDERED: ATORVASTATIN 80 MG TAB PO SCH (21:00)
[2017-06-14] MEDS ORDERED: ASPIRIN 81 MG PO SCH (21:00)
[2017-06-14 21:08] VITALS: BMI 38.4
[2017-06-14] MEDS: FAMOTIDINE 20 MG TAB PO SCH (21:34)
[2017-06-14] MEDS: FUROSEMIDE 20 MG TAB PO SCH (21:35)
[2017-06-14] MEDS: hydrALAZINE HCL 25 MG TAB PO SCH (21:35)
[2017-06-14] MEDS: cloNIDine HCL 0.1 MG TAB PO SCH (21:46)
[2017-06-14 22:01] LABS: Creatine Kinase MB 0.8 ng/mL (0.0-2.4); Troponin I 0.018 ng/mL (0.000-0.034)
[2017-06-14] MEDS ORDERED: MORPHINE SULFATE 4 MG/ML SYRINGE IVP PRN (22:22)
[2017-06-14] MEDS ORDERED: ONDANSETRON 4 MG/2 ML VIAL IVP PRN (23:24)
[2017-06-15 04:22] LABS: Creatine Kinase 53 U/L (30-135)
[2017-06-15 04:36] LABS: Creatine Kinase MB 0.7 ng/mL (0.0-2.4); Troponin I <0.012 ng/mL (0.000-0.034)
[2017-06-15 06:55] LABS: Glucose,Whole Blood 134 mg/dL (75-99)
[2017-06-15] MEDS ORDERED: metFORMIN 500 MG TAB PO SCH (07:30)
[2017-06-15] MEDS ORDERED: GLIMEPIRIDE 1 MG TAB PO SCH (07:30)
[2017-06-15] MEDS ORDERED: CARVEDILOL 12.5 MG TAB PO SCH (07:30)
[2017-06-15 08:07] VITALS: BP 135/70; PULSE 52; RESP 16; TEMP 97.6
[2017-06-15] MEDS ORDERED: SPIRONOLACTONE 25 MG TAB PO SCH (09:00)
[2017-06-15] MEDS ORDERED: SERTRALINE 100 MG TAB PO SCH (09:00)
[2017-06-15] MEDS ORDERED: LINAGLIPTIN 5 MG TABLET PO SCH (09:00)
[2017-06-15] MEDS ORDERED: CHOLECALCIFEROL 1,000 UNIT TAB PO SCH (09:00)
[2017-06-15] MEDS: hydrALAZINE HCL 25 MG TAB PO SCH (09:37)
[2017-06-15] MEDS: FUROSEMIDE 20 MG TAB PO SCH (09:37)
[2017-06-15] MEDS: cloNIDine HCL 0.1 MG TAB PO SCH (09:38)
[2017-06-15] MEDS: FAMOTIDINE 20 MG TAB PO SCH (09:38)
--- NOTE | 2017-06-15 13:04 | P.CRDCN ---
History of Present Illness Consult date: 06/15/17 Requesting physician: Shan Domínguez Reason for Consult (text): Chest discomfort Consult reason: chest pain Chief complaint: Vaginal bleeding History of present illness: This is a 56-year-old female patient who presented to the emergency department secondary to 2 day history of vaginal bleeding. The patient underwent vaginal ultrasound which showed fibroids 2. She has had previous episodes of vaginal bleeding and has not been able to follow up with a SLAB DEPILER OPERATOR as an outpatient. The patient did not initially have chest discomfort on admission. She states that after her vaginal ultrasound she returned to her room where she developed some chest discomfort that lasted about 20 minutes. It was different from the previous chest discomfort that she's had in the past. It is reproducible upon palpation. She did have some radiation of this pain to her back but no nausea, shortness of breath or diaphoresis associated with it. It did resolve on its own and she currently is chest pain-free. The patient has a significant cardiac history including PCI with stent to the mid and distal LAD [address] KARENA sanchez in 2017. She states that she does follow up with him on a regular basis. She states that she has had stress tests since the last cardiac catheterization and they were normal. Serial troponins are negative. EKG does not show any ST abnormalities. She also carries a history of hypertension, diabetes and pulmonary embolism. She is seen sitting up in bed in no acute distress. Hemodynamically stable. Denies any chest discomfort. Review of Systems All systems: negative Past Medical History Past Medical History: Chest Pain / Angina, Diabetes Mellitus, Hypertension, Myocardial Infarction (UT), Musculoskeletal Disorder, Osteoarthritis (OA), Pulmonary Embolus (PE), Rheumatoid Arthritis (RA), Vascular Disorder Additional Past Medical History / Comment(s): PE in Left lung d/t a right DVT 2007. ANEMIA. HEART MURMUR. CHRONIC BACK PAIN. RAYNAUDS. Chronic insomnia. SOB. 2 diabetes 08/29/15. Ddd chronic back pain. Multiple sclerosis Last Myocardial Infarction Date:: 2016 History of Any Multi-Drug Resistant Organisms: None Reported Past Surgical History: Adenoidectomy, Cholecystectomy, Heart Catheterization With Stent, Tonsillectomy, Tubal Ligation Additional Past Surgical History / Comment(s): CORY FUNDOPLASTY. REPAIR OF HOLE IN DIAPHRAGM. EGD. PAIN CINIC PROCEDURE Past Anesthesia/Blood Transfusion Reactions: No Reported Reaction Additional Past Anesthesia/Blood Transfusion Reaction / Comment(s): PT ADOPTED- FAMILY HX UNKNOWN Date of Last Stent Placement:: 2016 Past Psychological History: Anxiety, Bipolar Additional Psychological History / Comment(s): taking stress management class Smoking Status: Never smoker Past Alcohol Use History: None Reported Additional Past Alcohol Use History / Comment(s): Patient is a lifelong nonsmoker. She denies any medical marijuana, marijuana, street drug or alcohol use. She lives at home with her and [id number]. Past Drug Use History: None Reported - Past Family History Father Family Medical History: Unable to Obtain Additional Family Medical History / Comment(s): PT ADOPTED-FAMILY HX UNKNOWN Son(s) Additional Family Medical History / Comment(s): Patient has 3 children and 2 history of cerebral palsy. One child has no major medical problems. Medications and Allergies Home Medications Medication Instructions Recorded Confirmed Type Lisinopril 20 mg PO HS 01/10/16 06/14/17 History Glimepiride [Amaryl] 1 mg PO AC-BRKFST 05/23/16 06/14/17 History hydrALAZINE HCL [Apresoline] 25 mg PO BID 05/23/16 06/14/17 History Cholecalciferol (Vitamin D3) 2,000 unit PO DAILY 08/27/16 06/14/17 History [Vitamin D3] Atorvastatin [Lipitor] 80 mg PO HS #90 tab 08/29/16 06/14/17 Rx Nitroglycerin Sl Tabs [Nitrostat] 0.4 mg SUBLINGUAL Q5M PRN #25 tab 08/29/1605/29 Rx Aspirin 81 mg PO HS 04/17/17 06/14/17 History Carvedilol [Coreg] 25 mg PO BID 04/17/17 06/14/17 History Clopidogrel [Plavix] 75 mg PO HS 04/17/17 06/14/17 History Furosemide [Lasix] 20 mg PO BID 04/17/17 06/14/17 History Insulin Glargine [Lantus] 25 unit SQ HS 04/17/17 06/14/17 History Sertraline [Zoloft] 100 mg PO DAILY 04/17/17 06/14/17 History cloNIDine HCL [Catapres] 0.1 mg PO BID 04/17/17 06/14/17 History metFORMIN HCL [metFORMIN HCL ER] 750 mg PO BID 04/17/17 06/14/17 History sitaGLIPtin [Januvia] 100 mg PO DAILY 04/17/17 06/14/17 History Spironolactone [Aldactone] 25 mg PO DAILY #30 tab 04/19/17 06/14/17 Rx traZODone HCL [Desyrel] 150 mg PO HS 06/03/17 06/14/17 History Ciprofloxacin HCl [Cipro] 500 mg PO BID 3 Days #6 tab 06/15/17 Rx HYDROcodone/APAP 7.5-325MG [[place] 1 tab PO Q4H PRN #12 tab 06/15/17 Rx 7.5-325] Allergies Allergy/AdvReac Type Severity Reaction Status Date / Time tizanidine AdvReac Hallucinati Verified 06/14/17 20:52 ons Physical Exam Vitals: Vital Signs Temp Pulse Pulse Pulse Resp BP BP 06/15/17 08:00 97.6 F 52 L 16 135/70 06/15/17 03:30 97.8 F 58 L 18 118/60 06/14/17 23:39 97.5 F L 77 18 129/71 06/14/17 21:49 18 06/14/17 20:56 98.3 F 62 18 145/78 06/14/17 20:26 97.9 F 97 18 126/60 06/14/17 20:09 69 18 130/64 06/14/17 20:03 67 18 176/72 06/14/17 19:20 63 18 170/77 06/14/17 19:10 78 24 214/98 06/14/17 17:41 97 F L 65 18 206/109 06/14/17 14:18 98.2 F 70 18 182/93 Pulse Ox 06/15/17 08:00 96 06/15/17 03:30 94 L 06/14/17 23:39 97 06/14/17 21:49 06/14/17 20:56 98 06/14/17 20:26 96 06/14/17 20:09 96 06/14/17 20:03 97 06/14/17 19:20 98 06/14/17 19:10 97 06/14/17 17:41 99 06/14/17 14:18 97 Intake and Output 05/05/2906/15/17 06/15/17 22:59 06:59 14:59 Other: Voiding Method Toilet # Voids 1 1 1 Weight 111.2 kg 111.2 kg - Constitutional General appearance: obese - EENT Eyes: normal appearance ENT: hearing grossly normal - Neck No JVD Carotids: bilateral: upstroke normal - Respiratory Tenderness upon palpation to anterior midsternal chest area Respiratory: bilateral: CTA - Cardiovascular Rhythm: regular Heart sounds: normal: S1, S2 - Gastrointestinal General gastrointestinal: soft - Musculoskeletal Musculoskeletal: gait normal - Psychiatric Psychiatric: A&O x's 3 Results 06/14/17 15:11 06/14/17 15:11 Cardiac Enzymes 06/14/17 06/14/17 06/14/17 Range/Units 15:11 15:11 21:07 AST 49 H (14-36) U/L CK-MB (CK-2) 0.8 0.8 (0.0-2.4) ng/mL Troponin I 0.012 0.018 (0.000-0.034) ng/mL 06/15/17 Range/Units 03:23 AST (14-36) U/L CK-MB (CK-2) 0.7 (0.0-2.4) ng/mL Troponin I <0.012 (0.000-0.034) ng/mL Coagulation 06/14/17 Range/Units 15:45 PT 9.8 (9.0-12.0) sec APTT 23.2 (22.0-30.0) sec CBC 06/14/17 Range/Units 15:11 WBC 8.7 (3.8-10.6) k/uL RBC 4.54 (3.80-5.40) m/uL Hgb 13.8 (11.4-16.0) gm/dL Hct 39.0 (34.0-46.0) % Plt Count 221 (150-450) k/uL Comprehensive Metabolic Panel 06/14/17 Range/Units 15:11 Sodium 144 (137-145) mmol/L Potassium 4.2 (3.5-5.1) mmol/L Chloride 108 H (98-107) mmol/L Carbon Dioxide 23 (22-30) mmol/L BUN 10 (7-17) mg/dL Creatinine 0.66 (0.52-1.04) mg/dL Glucose 106 H (74-99) mg/dL Calcium 9.5 (8.4-10.2) mg/dL AST 49 H (14-36) U/L ALT 65 H (9-52) U/L Alkaline Phosphatase 119 (38-126) U/L Total Protein 6.5 (6.3-8.2) g/dL Albumin 4.0 (3.5-5.0) g/dL Intake and Output 06/14/17 06/15/17 06/15/17 22:59 06:59 14:59 Other: Voiding Method Toilet # Voids 1 1 1 Weight 111.2 kg 111.2 kg Patient Weight 06/16/17 06:59 Weight 111.2 kg 06/14/17 15:11 06/14/17 15:11 - Imaging and Cardiology Echo: report reviewed Cardiac cath: report reviewed - EKG Interpretation EKG: sinus rhythm Assessment and Plan Assessment: Acute vaginal bleeding hemoglobin stable Atypical chest pain with negative troponin, EKG and reproducible upon palpation History of CAD status post stent 2 in 2017 Hypertension Diabetes mellitus History of pulmonary embolism Morbid obesity Plan: Recent echocardiogram showed a normal LV size and systolic function. No need to repeat echo at this time. Serial troponins are negative and EKG does not show any evidence of ST abnormalities. Patient's chest pain is atypical in nature and no further recommendations at this time. The patient should follow up with Dr. KARENA Marino as previously scheduled and follow-up with gynecology as recommended for vaginal bleeding. Continue with her previous cardiac medications. From a cardiac standpoint, she may be discharged home today.
--- NOTE | 2017-06-15 15:37 | P.DS ---
Providers Date of admission: 06/14/17 20:06 Attending physician: Shan Domínguez MD Consults: 06/14/17 20:05 Consult Physician Stat Consulting Provider: Carlos Kim Consult Reason/Comments: Unstable angina Do you want consulting provider notified?: Yes Primary care physician: [facility] Course: please refer to my HPI Patient Condition at Discharge: Fair Plan - Discharge Summary New Discharge Prescriptions: New HYDROcodone/APAP 7.5-325MG [[place] 7.5-325] 1 tab PO Q4H PRN #12 tab PRN Reason: Pain Ciprofloxacin HCl [Cipro] 500 mg PO BID 3 Days #6 tab No Action Lisinopril 20 mg PO HS hydrALAZINE HCL [Apresoline] 25 mg PO BID Glimepiride [Amaryl] 1 mg PO AC-BRKFST Cholecalciferol (Vitamin D3) [Vitamin D3] 2,000 unit PO DAILY Atorvastatin [Lipitor] 80 mg PO HS #90 tab Nitroglycerin Sl Tabs [Nitrostat] 0.4 mg SUBLINGUAL Q5M PRN #25 tab PRN Reason: Chest Pain sitaGLIPtin [Januvia] 100 mg PO DAILY Sertraline [Zoloft] 100 mg PO DAILY metFORMIN HCL [metFORMIN HCL ER] 750 mg PO BID Carvedilol [Coreg] 25 mg PO BID Aspirin 81 mg PO HS cloNIDine HCL [Catapres] 0.1 mg PO BID Insulin Glargine [Lantus] 25 unit SQ HS Furosemide [Lasix] 20 mg PO BID Clopidogrel [Plavix] 75 mg PO HS Spironolactone [Aldactone] 25 mg PO DAILY #30 tab traZODone HCL [Desyrel] 150 mg PO HS Discharge Medication List Lisinopril 20 mg PO HS 01/10/16 [History] Glimepiride [Amaryl] 1 mg PO AC-BRKFST 05/23/16 [History] hydrALAZINE HCL [Apresoline] 25 mg PO BID 05/23/16 [History] Cholecalciferol (Vitamin D3) [Vitamin D3] 2,000 unit PO DAILY 08/27/16 [History] Atorvastatin [Lipitor] 80 mg PO HS #90 tab 08/29/16 [Rx] Nitroglycerin Sl Tabs [Nitrostat] 0.4 mg SUBLINGUAL Q5M PRN #25 tab 08/29/16 [Rx ] Aspirin 81 mg PO HS 04/17/17 [History] Carvedilol [Coreg] 25 mg PO BID 04/17/17 [History] Clopidogrel [Plavix] 75 mg PO HS 04/17/17 [History] Furosemide [Lasix] 20 mg PO BID 04/17/17 [History] Insulin Glargine [Lantus] 25 unit SQ HS 04/17/17 [History] Sertraline [Zoloft] 100 mg PO DAILY 04/17/17 [History] cloNIDine HCL [Catapres] 0.1 mg PO BID 04/17/17 [History] metFORMIN HCL [metFORMIN HCL ER] 750 mg PO BID 04/17/17 [History] sitaGLIPtin [Januvia] 100 mg PO DAILY 04/17/17 [History] Spironolactone [Aldactone] 25 mg PO DAILY #30 tab 04/19/17 [Rx] traZODone HCL [Desyrel] 150 mg PO HS 06/03/17 [History] Ciprofloxacin HCl [Cipro] 500 mg PO BID 3 Days #6 tab 06/15/17 [Rx] HYDROcodone/APAP 7.5-325MG [[place] 7.5-325] 1 tab PO Q4H PRN #12 tab 06/15/17 [Rx ] Follow up Appointment(s)/Referral(s): Jackie Massey MD [STAFF PHYSICIAN] - 3 Days Mimi Solomon III, MD [Primary Care Provider] - 3 Days Patient Instructions/Handouts: Chest Pain (DC) Discharge Disposition: HOME SELF-CARE
--- NOTE | 2017-06-15 15:37 | P.HPIM ---
History of Present Illness 56-year-old female patient who presented to the emergency department secondary to 2 day history of vaginal bleeding. The patient underwent vaginal ultrasound which showed fibroids 2. She has had previous episodes of vaginal bleeding and has not been able to follow up with a [employer] E[employer] OPERATOR as an outpatient. The patient did not initially have chest discomfort on admission. She states that after her vaginal ultrasound she returned to her room where she developed some chest discomfort that lasted about 20 minutes. It was different from the previous chest discomfort that she's had in the past. It is reproducible upon palpation. She did have some radiation of this pain to her back but no nausea, shortness of breath or diaphoresis associated with it. It did resolve on its own and she currently is chest pain-free. The patient has a significant cardiac history including PCI with stent to the mid and distal LAD [address] KARENA sanchez in 2016. She states that she does follow up with him on a regular basis. She states that she has had stress tests since the last cardiac catheterization and they were normal. Serial troponins are negative. EKG does not show any ST abnormalities. She also carries a history of hypertension, diabetes and pulmonary embolism. She is seen sitting up in bed in no acute distress. Hemodynamically stable. Denies any chest discomfort.her vaginal bleeding presently resolved patient will refer to ELIGIBILITY SERVICES REPRESENTATIVE. Patient does not have any symptoms of chest pain. Patient is saturating well even upon ablation although she is complaining of some shortness of breath lungs are clear to auscultation. Patient was recently diagnosed with a pulmonary embolism and anti -correlation was discontinued because of her vaginal bleed. Patient only had minimal subsegmental PE on the right side and apical lobes, my suspicion is extremely low this causes significant shortness of breath anyways. Unfortunately we cannot use anticoagulation because of her active vaginal bleeding if she is continued on Coumadin. Patient is on aspirin and Plavix because of her PCI and stenting in August 2016, unfortunately these medications cannot be discontinued because of concerns of in-stent stenosis or restenosis Review of Systems REVIEW OF SYSTEMS: CONSTITUTIONAL: No fever, no malaise, no fatigue. HEENT: No recent visual problems or hearing problems. Denied any sore throat. CARDIOVASCULAR: No chest pain, orthopnea, PND, no palpitations, no syncope. PULMONARY: no cough, no hemoptysis. GASTROINTESTINAL: No diarrhea, no nausea, no vomiting, no abdominal pain. Normoactive bowel sounds. NEUROLOGICAL: No headaches, no weakness, no numbness. HEMATOLOGICAL: Denies any bleeding or petechiae. GENITOURINARY: Denies any burning micturition, frequency, or urgency. MUSCULOSKELETAL/RHEUMATOLOGICAL: Denies any joint pain, swelling, or any muscle pain. ENDOCRINE: Denies any polyuria or polydipsia. The rest of the 14-point review of systems is negative. Past Medical History Past Medical History: Chest Pain / Angina, Diabetes Mellitus, Hypertension, Myocardial Infarction (OR), Musculoskeletal Disorder, Osteoarthritis (OA), Pulmonary Embolus (PE), Rheumatoid Arthritis (RA), Vascular Disorder Additional Past Medical History / Comment(s): PE in Left lung d/t a right DVT 2007. ANEMIA. HEART MURMUR. CHRONIC BACK PAIN. RAYNAUDS. Chronic insomnia. SOB. 2 diabetes 08/29/15. Ddd chronic back pain. Multiple sclerosis Last Myocardial Infarction Date:: 2016 History of Any Multi-Drug Resistant Organisms: None Reported Past Surgical History: Adenoidectomy, Cholecystectomy, Heart Catheterization With Stent, Tonsillectomy, Tubal Ligation Additional Past Surgical History / Comment(s): CORY FUNDOPLASTY. REPAIR OF HOLE IN DIAPHRAGM. EGD. PAIN CINIC PROCEDURE Past Anesthesia/Blood Transfusion Reactions: No Reported Reaction Additional Past Anesthesia/Blood Transfusion Reaction / Comment(s): PT ADOPTED- FAMILY HX UNKNOWN Date of Last Stent Placement:: 2016 Past Psychological History: Anxiety, Bipolar Additional Psychological History / Comment(s): taking stress management class Smoking Status: Never smoker Past Alcohol Use History: None Reported Additional Past Alcohol Use History / Comment(s): Patient is a lifelong nonsmoker. She denies any medical marijuana, marijuana, street drug or alcohol use. She lives at home with her and [id number]. Past Drug Use History: None Reported - Past Family History Father Family Medical History: Unable to Obtain Additional Family Medical History / Comment(s): PT ADOPTED-FAMILY HX UNKNOWN Son(s) Additional Family Medical History / Comment(s): Patient has 3 children and 2 history of cerebral palsy. One child has no major medical problems. Medications and Allergies Home Medications Medication Instructions Recorded Confirmed Type Lisinopril 20 mg PO HS 01/10/16 06/14/17 History Glimepiride [Amaryl] 1 mg PO AC-BRKFST 05/23/16 06/14/17 History hydrALAZINE HCL [Apresoline] 25 mg PO BID 05/23/16 06/14/17 History Cholecalciferol (Vitamin D3) 2,000 unit PO DAILY 08/27/16 06/14/17 History [Vitamin D3] Atorvastatin [Lipitor] 80 mg PO HS #90 tab 08/29/16 06/14/17 Rx Nitroglycerin Sl Tabs [Nitrostat] 0.4 mg SUBLINGUAL Q5M PRN #25 tab 08/29/1605/29 Rx Aspirin 81 mg PO HS 04/17/17 06/14/17 History Carvedilol [Coreg] 25 mg PO BID 04/17/17 06/14/17 History Clopidogrel [Plavix] 75 mg PO HS 04/17/17 06/14/17 History Furosemide [Lasix] 20 mg PO BID 04/17/17 06/14/17 History Insulin Glargine [Lantus] 25 unit SQ HS 04/17/17 06/14/17 History Sertraline [Zoloft] 100 mg PO DAILY 04/17/17 06/14/17 History cloNIDine HCL [Catapres] 0.1 mg PO BID 04/17/17 06/14/17 History metFORMIN HCL [metFORMIN HCL ER] 750 mg PO BID 04/17/17 06/14/17 History sitaGLIPtin [Januvia] 100 mg PO DAILY 04/17/17 06/14/17 History Spironolactone [Aldactone] 25 mg PO DAILY #30 tab 04/19/17 06/14/17 Rx traZODone HCL [Desyrel] 150 mg PO HS 06/03/17 06/14/17 History Ciprofloxacin HCl [Cipro] 500 mg PO BID 3 Days #6 tab 06/15/17 Rx HYDROcodone/APAP 7.5-325MG [[place] 1 tab PO Q4H PRN #12 tab 06/15/17 Rx 7.5-325] Allergies Allergy/AdvReac Type Severity Reaction Status Date / Time tizanidine AdvReac Hallucinati Verified 06/14/17 20:52 ons Physical Exam Vitals: Vital Signs Temp Pulse Pulse Pulse Resp BP BP 06/15/17 08:00 97.6 F 52 L 16 135/70 06/15/17 03:30 97.8 F 58 L 18 118/60 06/14/17 23:39 97.5 F L 77 18 129/71 06/14/17 21:49 18 06/14/17 20:56 98.3 F 62 18 145/78 06/14/17 20:26 97.9 F 97 18 126/60 06/14/17 20:09 69 18 130/64 06/14/17 20:03 67 18 176/72 06/14/17 19:20 63 18 170/77 06/14/17 19:10 78 24 214/98 06/14/17 17:41 97 F L 65 18 206/109 Pulse Ox 06/15/17 08:00 96 06/15/17 03:30 94 L 06/14/17 23:39 97 06/14/17 21:49 06/14/17 20:56 98 06/14/17 20:26 96 06/14/17 20:09 96 06/14/17 20:03 97 06/14/17 19:20 98 06/14/17 19:10 97 06/14/17 17:41 99 Intake and Output 06/15/17 06/15/17 06/15/17 06:59 14:59 22:59 Other: Voiding Method Toilet # Voids 1 1 Weight 111.2 kg PHYSICAL EXAMINATION: GENERAL: The patient is alert and oriented x3, not in any acute distress. Well developed, well nourished. HEENT: Pupils are round and equally reacting to light. EOMI. No scleral icterus. No conjunctival pallor. Normocephalic, atraumatic. No pharyngeal erythema. No thyromegaly. CARDIOVASCULAR: S1 and S2 present. No murmurs, rubs, or gallops. PULMONARY: Chest is clear to auscultation, no wheezing or crackles. ABDOMEN: Soft, nontender, nondistended, normoactive bowel sounds. No palpable organomegaly. MUSCULOSKELETAL: No joint swelling or deformity. EXTREMITIES: No cyanosis, clubbing, or pedal edema. NEUROLOGICAL: Gross neurological examination did not reveal any focal deficits. SKIN: No rashes. Results CBC & Chem 7: 06/14/17 15:11 06/14/17 15:11 Labs: Abnormal Lab Results - Last 24 Hours (Table) 06/14/17 06/14/17 06/14/17 Range/Units 15:11 17:30 20:50 Chloride 108 H (98-107) mmol/L Glucose 106 H (74-99) mg/dL POC Glucose (mg/dL) 113 H (75-99) mg/dL AST 49 H (14-36) U/L ALT 65 H (9-52) U/L Urine Protein Trace H (Negative) Urine Blood Large H (Negative) Ur Leukocyte Esterase Small H (Negative) Urine RBC >182 H (0-5) /hpf Urine WBC 30 H (0-5) /hpf Urine Bacteria Rare H (None) /hpf Urine Mucus Rare H (None) /hpf 06/15/17 Range/Units 06:52 Chloride (98-107) mmol/L Glucose (74-99) mg/dL POC Glucose (mg/dL) 134 H (75-99) mg/dL AST (14-36) U/L ALT (9-52) U/L Urine Protein (Negative) Urine Blood (Negative) Ur Leukocyte Esterase (Negative) Urine RBC (0-5) /hpf Urine WBC (0-5) /hpf Urine Bacteria (None) /hpf Urine Mucus (None) /hpf Thrombosis Risk Factor Assmnt - Choose All That Apply Each Factor Represents 1 point: Age 41-60 years Thrombosis Risk Factor Assessment Total Risk Factor Score: 1 Thrombosis Risk Factor Assessment Level: Low Risk Assessment and Plan Plan: -vaginal bleeding: Resolved, leading to mild acute blood last anemia need to follow with ELIGIBILITY SERVICES REPRESENTATIVE as an outpatient presently resolved hold off anticoagulation continue with aspirin and Plavix -Chest pain atypical in nature was evaluated cardiology no further intervention at this point of time -History of coronary artery disease with stents less than any other ago patient will need to continue on aspirin and Plavix -History of mild PE about a week ago had an anti-correlation because of GI bleed -Type 2 diabetes mellitus -Hypertension -Morbid obesity -uterine fibroids leading to possible vaginal bleed submucosal friable fibroids can cause vaginal bleeds and abdominal pain is secondary to that. -Possibility of urinary tract infection cannot be ruled out as patient has suprapubic pain along with abnormal urine because of which patient will be given prescription of Cipro for 3 days
== END 2017-06-15 12:15 | disposition home or self-care (01) ==
LOC: EC 13:48 → 3OBS 20:06
PROVIDERS: ADMIT Internal Medicine; ATTEND Internal Medicine
DX: N93.9 Abnormal uterine and vaginal bleeding, unspecified (principal); D62 Acute posthemorrhagic anemia; R07.89 Other chest pain; R10.33 Periumbilical pain; I25.10 Atherosclerotic heart disease of native coronary artery without angina pectoris; Z95.5 Presence of coronary angioplasty implant and graft; Z79.82 Long term (current) use of aspirin; Z79.02 Long term (current) use of antithrombotics/antiplatelets; I26.99 Other pulmonary embolism without acute cor pulmonale; E11.9 Type 2 diabetes mellitus without complications; I10 Essential (primary) hypertension; E66.01 Morbid (severe) obesity due to excess calories; Z68.38 Body mass index [BMI] 38.0-38.9, adult; D25.0 Submucous leiomyoma of uterus; I25.2 Old myocardial infarction; M19.90 Unspecified osteoarthritis, unspecified site; M06.9 Rheumatoid arthritis, unspecified; D64.9 Anemia, unspecified; M54.9 Dorsalgia, unspecified; G89.29 Other chronic pain; I73.00 Raynaud's syndrome without gangrene; F51.04 Psychophysiologic insomnia; G35 Multiple sclerosis; Z90.49 Acquired absence of other specified parts of digestive tract; F41.9 Anxiety disorder, unspecified; F31.9 Bipolar disorder, unspecified; Z79.899 Other long term (current) drug therapy; Z79.84 Long term (current) use of oral hypoglycemic drugs; Z79.4 Long term (current) use of insulin; Z88.8 Allergy status to other drugs, medicaments and biological substances; N93.8 Other specified abnormal uterine and vaginal bleeding; Z86.718 Personal history of other venous thrombosis and embolism
CPT/HCPCS: 99285 ×2; 96361 ×2; 96374 ×2; 96376 ×3; 96375; 36415; 93005 ×2; 80053; 82550 ×2; 82553 ×2; 84484 ×2; 85025; 85610; 85730; 81001; 71046; 76830; G0378 ×2; J2270; J2405

== ENCOUNTER → 2017-08-28 | Outpatient (CLI) | payer OTHER ==
[2017-08-28 17:18] LABS: Blood Urea Nitrogen 13 mg/dL (7-17)
--- NOTE | 2017-08-28 20:37 | CT ---
EXAMINATION TYPE: CT angio chest DATE OF EXAM: 08/28/2017 COMPARISON: 04/17/2017 HISTORY: 57-year-old female chronic dry cough and history of PE TECHNIQUE: Contiguous axial scanning of the chest performed with IV Contrast, patient injected with 1 00 mL of Isovue 370. Coronal/sagittal MIP reconstructions performed. CT DLP: 537.7 mGycm Automated exposure control for dose reduction was used. FINDINGS: The heart is borderline enlarged without pericardial effusion. Extensive coronary vessel calcificatio ns are present. Ectatic ascending aorta 3.6 cm. There is conventional arterial vessel branching anatomy. Satisfactory opacification of the pulmonary arterial system. There is redemonstration of a small fill ing defect within the segmental basilar left lower lobe branch point, axial image 81. This may be sli ghtly smaller as compared to that seen on 04/17/2017 but is located in the same place. No other pulmona ry embolus is seen. A prominent 1.2 cm right paratracheal lymph node is probably reactive/post inflammatory. Otherwise, s cattered small mediastinal lymph nodes are noted. Interval clearance of the previous pleural effusions and septal lines and groundglass. There is some patchy opacity at the inferior lingula noted, likely atelectasis. Otherwise, no consolidation or pleu ral effusion. Small amount of reflux of contrast into the hepatic veins. The circumferential wall thickening of the distal esophagus, reference axial image 105 through 107. V isualized upper abdomen otherwise shows cholecystectomy clips. Bones: Degenerative disc disease mid to lower thoracic spine. No osseous destructive process. IMPRESSION: 1. REDEMONSTRATION OF A TINY FILLING DEFECT IN THE DISTAL LEFT LOWER LOBE BASILAR SEGMENTAL PULMONARY ARTERY. THIS IS MINIMALLY SMALLER FROM 04/17/2017. SOME RESIDUAL CLOT IS SUGGESTED. NO NEW PULMONARY E MBOLUS. 2. BORDERLINE CARDIOMEGALY WITH CAD AND SOME REFLUX OF CONTRAST INTO THE HEPATIC VEINS BUT NO OVERT C HF. 3. SOME PATCHY OPACITY AT THE INFERIOR LINGULA MOST LIKELY ATELECTASIS. 4. CONSIDER GI REFERRAL FOR FURTHER EVALUATION OF THE PATIENT'S DISTAL ESOPHAGEAL WALL THICKENING. ES OPHAGITIS AND NEOPLASM ARE IN THE DIFFERENTIAL. DIRECT VISUALIZATION CAN BE CONSIDERED.
== END | disposition home or self-care (01) ==
LOC: RADCTMAIN 16:07
PROVIDERS: ATTEND Internal Medicine Hematology & Oncology
DX: I51.7 Cardiomegaly (principal); I25.10 Atherosclerotic heart disease of native coronary artery without angina pectoris; R91.8 Other nonspecific abnormal finding of lung field; K22.8 Other specified diseases of esophagus; Z88.8 Allergy status to other drugs, medicaments and biological substances
CPT/HCPCS: 82565; 84520; 71275; 36415; Q9967

== ENCOUNTER 2017-09-20 01:14 | Inpatient (IN) | payer OTHER ==
[2017-09-20] MEDS ORDERED: ASPIRIN 81 MG PO STA (01:23)
--- NOTE | 2017-09-20 01:26 | ED ---
General Adult HPI - General Stated complaint: Chest pain - History of Present Illness Initial comments: Dictation was produced using [employer] dictation software. please excuse any grammatical, word or spelling errors. Chief Complaint: 57 year old female past medical history of coronary artery disease, OK, pulmonary embolus, DVT presents with acute onset chest pain. History of Present Illness: The she's been having chest pain for the last 30 minutes purchase at home at rest when she had onset of crushing substernal chest pressure. She does also complain of associated left upper extremity numbness. Patient states these symptoms remind her of when she was diagnosed with myocardial infarction. Patient had 2 MIs in the last year. Her music researcher is Dr. Marino. Denies any shortness of breath at this time. Patient is currently on Coumadin for DVT and thromboembolic disease. Denies any constitutional symptoms. The ROS documented in this emergency department record has been reviewed and confirmed by me. Those systems with pertinent positive or negative responses have been documented in the HPI. All other systems are other negative and/or noncontributory. - Related Data Home Medications Medication Instructions Recorded Confirmed Lisinopril 20 mg PO HS 01/10/16 06/14/17 Glimepiride [Amaryl] 1 mg PO AC-BRKFST 05/23/16 06/14/17 hydrALAZINE HCL [Apresoline] 25 mg PO BID 05/23/16 06/14/17 Cholecalciferol (Vitamin D3) 2,000 unit PO DAILY 08/27/16 06/14/17 [Vitamin D3] Aspirin 81 mg PO HS 04/17/17 06/14/17 Carvedilol [Coreg] 25 mg PO BID 04/17/17 06/14/17 Clopidogrel [Plavix] 75 mg PO HS 04/17/17 06/14/17 Furosemide [Lasix] 20 mg PO BID 04/17/17 06/14/17 Insulin Glargine [Lantus] 25 unit SQ HS 04/17/17 06/14/17 Sertraline [Zoloft] 100 mg PO DAILY 04/17/17 06/14/17 cloNIDine HCL [Catapres] 0.1 mg PO BID 04/17/17 06/14/17 metFORMIN HCL [metFORMIN HCL ER] 750 mg PO BID 04/17/17 06/14/17 sitaGLIPtin [Januvia] 100 mg PO DAILY 04/17/17 06/14/17 traZODone HCL [Desyrel] 150 mg PO HS 06/03/17 06/14/17 Previous Rx's Medication Instructions Recorded Atorvastatin [Lipitor] 80 mg PO HS #90 tab 08/29/16 Nitroglycerin Sl Tabs [Nitrostat] 0.4 mg SUBLINGUAL Q5M PRN #25 tab 08/29/16 Spironolactone [Aldactone] 25 mg PO DAILY #30 tab 04/19/17 Ciprofloxacin HCl [Cipro] 500 mg PO BID 3 Days #6 tab 06/15/17 HYDROcodone/APAP 7.5-325MG [[place] 1 tab PO Q4H PRN #12 tab 06/15/17 7.5-325] Allergies Allergy/AdvReac Type Severity Reaction Status Date / Time tizanidine AdvReac Hallucinati Verified 09/20/17 01:37 ons Review of Systems ROS Statement: Those systems with pertinent positive or pertinent negative responses have been documented in the HPI. ROS Other: All systems not noted in ROS Statement are negative. Past Medical History Past Medical History: Chest Pain / Angina, Diabetes Mellitus, Hypertension, Myocardial Infarction (OK), Musculoskeletal Disorder, Osteoarthritis (OA), Pulmonary Embolus (PE), Rheumatoid Arthritis (RA), Vascular Disorder Additional Past Medical History / Comment(s): PE in Left lung d/t a right DVT 2007. ANEMIA. HEART MURMUR. CHRONIC BACK PAIN. RAYNAUDS. Chronic insomnia. SOB. 2 diabetes 08/29/15. Ddd chronic back pain. Multiple sclerosis Last Myocardial Infarction Date:: 2016 History of Any Multi-Drug Resistant Organisms: None Reported Past Surgical History: Adenoidectomy, Cholecystectomy, Heart Catheterization With Stent, Tonsillectomy, Tubal Ligation Additional Past Surgical History / Comment(s): CORY FUNDOPLASTY. REPAIR OF HOLE IN DIAPHRAGM. EGD. PAIN CINIC PROCEDURE Past Anesthesia/Blood Transfusion Reactions: No Reported Reaction Additional Past Anesthesia/Blood Transfusion Reaction / Comment(s): PT ADOPTED- FAMILY HX UNKNOWN Date of Last Stent Placement:: 2016 Past Psychological History: Anxiety, Bipolar Additional Psychological History / Comment(s): taking stress management class Smoking Status: Never smoker Past Alcohol Use History: None Reported Additional Past Alcohol Use History / Comment(s): Patient is a lifelong nonsmoker. She denies any medical marijuana, marijuana, street drug or alcohol use. She lives at home with her and [id number]. Past Drug Use History: None Reported - Past Family History Father Family Medical History: Unable to Obtain Additional Family Medical History / Comment(s): PT ADOPTED-FAMILY HX UNKNOWN Son(s) Additional Family Medical History / Comment(s): Patient has 3 children and 2 history of cerebral palsy. One child has no major medical problems. General Exam - General Exam Comments Initial Comments: PHYSICAL EXAM: General Impression: Alert and oriented x3, acute distress secondary to pain HEENT: Normocephalic atraumatic, extra-ocular movements intact, pupils equal and reactive to light bilaterally, mucous membranes moist. Cardiovascular: Heart regular rate and rhythm, S1&S2 audible, no murmurs, rubs or gallops Chest: Lungs clear to auscultation bilaterally, no rhonchi, no wheeze, no rales Abdomen: Bowel sounds present, abdomen soft, non-tender, non-distended, no organomegaly Musculoskeletal: Pulses present and equal in all extremities, no peripheral edema Motor: Power 5/5 bilaterally, no focal deficits noted Neurological: CN II-XII grossly intact, no focal motor or sensory deficits noted Skin: Intact with no visualized rashes Psych: Normal affect and mood Course Vital Signs 09/20/17 09/20/17 01:34 01:48 Temperature 97.7 F Pulse Rate 69 Pulse Rate [ 69 Vp Legal Affairs ] Respiratory 20 Rate Blood Pressure 155/77 O2 Sat by Pulse 97 Oximetry Medical Decision Making - Medical Decision Making ED course: 57-year-old female with multiple comorbidities presents with chest pain concerning for ACS. Vital signs are within normal limits. Patient received an aspirin by EMS. CBC is unremarkable. Patient hypoxic or tachycardiac. Patient's INR subtherapeutic at 0.9. Chem panel shows glucose of 241. No Acidosis. First troponin is negative. Rest of labs unremarkable. Two-view chest x-ray obtained showing no acute processes. Given that patient has history of cardiac disease have patient admitted to observation for serial troponins. Patient's allegedly on Coumadin. She states she has not checked her INR in several weeks. No documentation from that patient is on Coumadin. She does report taking 5 mg every day. Her Coumadin is subtherapeutic. Chart review shows that patient was stopped Coumadin at some point due to bleeding issues. At this point we will hold anticoagulation therapy at this time until the morning when more information gathered from primary care physician to confirm whether or not she is on anticoagulation. Repeat EKG was obtained showing no dynamic changes. Patient be comfortable EKG Interpretation: A 12 lead EKG was obtained. It was interpreted by myself. There is a P wave before every QRS complex. Rate is 69. Rhythm is normal sinus rhythm, MD interval 160, care surgeon 80, QTc 482. QT is not prolonged. No ST segment depression or elevation. No findings to suggest myocardial infarction at this time. EKG was compared to EKG from 06/15/2017 without any significant changes. Overall, this EKG is unremarkable - Lab Data Result diagrams: 09/20/17 01:40 09/20/17 01:40 Lab Results 09/20/17 09/20/17 09/20/17 Range/Units 01:40 01:40 01:40 WBC 7.6 (3.8-10.6) k/uL RBC 4.64 (3.80-5.40) m/uL Hgb 13.9 (11.4-16.0) gm/dL Hct 41.0 (34.0-46.0) % MCV 88.4 (80.0-100.0) fL MCH 29.9 (25.0-35.0) pg MCHC 33.8 (31.0-37.0) g/dL RDW 12.4 (11.5-15.5) % Plt Count 228 (150-450) k/uL Neutrophils % 52 % Lymphocytes % 38 % Monocytes % 5 % Eosinophils % 3 % Basophils % 0 % Neutrophils # 4.0 (1.3-7.7) k/uL Lymphocytes # 2.9 (1.0-4.8) k/uL Monocytes # 0.4 (0-1.0) k/uL Eosinophils # 0.3 (0-0.7) k/uL Basophils # 0.0 (0-0.2) k/uL PT (9.0-12.0) sec INR (<1.2) APTT (22.0-30.0) sec Sodium 137 (137-145) mmol/L Potassium 3.7 (3.5-5.1) mmol/L Chloride 105 (98-107) mmol/L Carbon Dioxide 24 (22-30) mmol/L Anion Gap 8 mmol/L BUN 11 (7-17) mg/dL Creatinine 0.80 (0.52-1.04) mg/dL Est GFR (CKD-EPI)AfAm >90 (>60 ml/min/1.73 sqM) Est GFR (CKD-EPI)NonAf 83 (>60 ml/min/1.73 sqM) Glucose 241 H (74-99) mg/dL Calcium 9.4 (8.4-10.2) mg/dL Magnesium 1.6 (1.6-2.3) mg/dL Total Bilirubin 0.2 (0.2-1.3) mg/dL AST 41 H (14-36) U/L ALT 50 (9-52) U/L Alkaline Phosphatase 108 (38-126) U/L Total Creatine Kinase 88 (30-135) U/L CK-MB (CK-2) 0.9 (0.0-2.4) ng/mL CK-MB (CK-2) Rel Index 1.0 Troponin I 0.013 (0.000-0.034) ng/mL NT-Pro-B Natriuret Pep pg/mL Total Protein 6.2 L (6.3-8.2) g/dL Albumin 3.8 (3.5-5.0) g/dL 09/20/17 09/20/17 Range/Units 01:40 01:40 WBC (3.8-10.6) k/uL RBC (3.80-5.40) m/uL Hgb (11.4-16.0) gm/dL Hct (34.0-46.0) % MCV (80.0-100.0) fL MCH (25.0-35.0) pg MCHC (31.0-37.0) g/dL RDW (11.5-15.5) % Plt Count (150-450) k/uL Neutrophils % % Lymphocytes % % Monocytes % % Eosinophils % % Basophils % % Neutrophils # (1.3-7.7) k/uL Lymphocytes # (1.0-4.8) k/uL Monocytes # (0-1.0) k/uL Eosinophils # (0-0.7) k/uL Basophils # (0-0.2) k/uL PT 9.4 (9.0-12.0) sec INR 0.9 (<1.2) APTT 22.4 (22.0-30.0) sec Sodium (137-145) mmol/L Potassium (3.5-5.1) mmol/L Chloride (98-107) mmol/L Carbon Dioxide (22-30) mmol/L Anion Gap mmol/L BUN (7-17) mg/dL Creatinine (0.52-1.04) mg/dL Est GFR (CKD-EPI)AfAm (>60 ml/min/1.73 sqM) Est GFR (CKD-EPI)NonAf (>60 ml/min/1.73 sqM) Glucose (74-99) mg/dL Calcium (8.4-10.2) mg/dL Magnesium (1.6-2.3) mg/dL Total Bilirubin (0.2-1.3) mg/dL AST (14-36) U/L ALT (9-52) U/L Alkaline Phosphatase (38-126) U/L Total Creatine Kinase (30-135) U/L CK-MB (CK-2) (0.0-2.4) ng/mL CK-MB (CK-2) Rel Index Troponin I (0.000-0.034) ng/mL NT-Pro-B Natriuret Pep 1590 pg/mL Total Protein (6.3-8.2) g/dL Albumin (3.5-5.0) g/dL Disposition Clinical Impression: Chest pain Disposition: ADMITTED IP TO THIS HOSP Condition: Fair Referrals: Mimi Solomon III, MD [Primary Care Provider] - 1-2 days Time of Disposition: 03:03
[2017-09-20 01:51] LABS: Basophils % (A) 0 %; Eosinophils # (A) 0.3 k/uL (0-0.7); Eosinophils % (A) 3 %; HGB 13.9 gm/dL (11.4-16.0); Lymphocytes # (A) 2.9 k/uL (1.0-4.8); Lymphocytes % (A) 38 %; MCH 29.9 pg (25.0-35.0); MCHC 33.8 g/dL (31.0-37.0); MCV 88.4 fL (80.0-100.0); Mean Platelet Volume 7.1; Monocytes # (A) 0.4 k/uL (0-1.0); Monocytes % (A) 5 %; Neutrophils % (A) 52 %; Platelet Count 228 k/uL (150-450); RBC 4.64 m/uL (3.80-5.40); RDW 12.4 % (11.5-15.5); WBC 7.6 k/uL (3.8-10.6)
--- NOTE | 2017-09-20 01:56 | XR ---
EXAMINATION TYPE: XR chest 2V DATE OF EXAM: 09/20/2017 COMPARISON: 06/14/2017 HISTORY: Chest pain TECHNIQUE: Frontal and lateral views of the chest are obtained. FINDINGS: There is no heart failure nor confluent pneumonic infiltrate. Costophrenic angles are josé manuel r. There are chest leads. IMPRESSION: No active cardiopulmonary disease. No change.
[2017-09-20 01:59] LABS: INR 0.9 (<1.2); Partial Thromboplastin Time 22.4 sec (22.0-30.0); Prothrombin Time 9.4 sec (9.0-12.0)
[2017-09-20 02:02] LABS: ALT 50 U/L (9-52); AST 41 U/L (14-36); Albumin 3.8 g/dL (3.5-5.0); Alkaline Phosphatase 108 U/L (38-126); Anion Gap 8 mmol/L; Blood Urea Nitrogen 11 mg/dL (7-17); Calcium 9.4 mg/dL (8.4-10.2); Carbon Dioxide 24 mmol/L (22-30); Chloride 105 mmol/L (98-107); Glucose 241 mg/dL (74-99); Magnesium 1.6 mg/dL (1.6-2.3); Potassium 3.7 mmol/L (3.5-5.1); Sodium 137 mmol/L (137-145); Total Bilirubin 0.2 mg/dL (0.2-1.3); Total Protein 6.2 g/dL (6.3-8.2)
[2017-09-20 02:22] LABS: Creatine Kinase MB 0.9 ng/mL (0.0-2.4); Troponin I 0.013 ng/mL (0.000-0.034)
[2017-09-20] MEDS ORDERED: NALOXONE 0.4 MG/ML 1 ML VIAL IV PRN (03:03)
[2017-09-20] MEDS ORDERED: NITROGLYCERIN SL TABS 0.4 MG TAB SUBLINGUAL PRN (03:04)
[2017-09-20 04:24] VITALS: BMI 40.3
[2017-09-20] MEDS ORDERED: traZODone HCL 50 MG TAB PO STA (04:34)
[2017-09-20] MEDS ORDERED: MORPHINE SULFATE 4 MG/ML SYRINGE ONE (05:30)
[2017-09-20] MEDS: MORPHINE SULFATE 4 MG/ML SYRINGE IVP PRN (05:37)
[2017-09-20 08:53] LABS: Glucose,Whole Blood 165 mg/dL (75-99)
[2017-09-20 08:57] LABS: Troponin I 0.019 ng/mL (0.000-0.034)
--- NOTE | 2017-09-20 09:59 | P.CRDCN ---
History of Present Illness Consult date: 09/20/17 Chief complaint: Chest discomfort History of present illness: This is a pleasant 57-year-old female patient who sees Dr. KARENA Marino in the office as an outpatient with a past medical history significant for coronary artery disease and prior stenting of the proximal and distal LAD in April 2016, known intermediate disease involving the RCA, and mild disease involving the left circumflex, as well as history of PE and currently the patient is on oral anticoagulation, hypertension, dyslipidemia, presented to the hospital complaining of chest discomfort. She was in her usual state of health until earlier today when she was sitting at home and suddenly started experiencing sharp kind of discomfort in the mid of the chest. It was associated with shortness of breath. She stated that every time she takes a deep breath it does hurt. She continues to have discomfort while she is in the hospital. No dizziness or lightheadedness, sweating, nausea or vomiting, or syncope. The patient stated that she gained about 10 pounds between August and September 2017. Also she has been noticing bilateral lower extremities edema and also some shortness of breath with laying flat in bed. The EKG showed sinus rhythm with nonspecific changes in the lateral leads seems to be the same compared to previous EKG. 2 sets of cardiac enzymes were checked and came in to be unremarkable. The chest x-ray did not show any acute abnormalities. The d-dimer was checked and came in to be slightly abnormal as well as. The rest of the blood work including a CBC and BMP came in to be within normal limits. Obviously the patient's need to be ruled out for PE. Her symptoms of chest discomfort seems to be pleuritic at this point. She is in process of having a CTA or VQ scan at this point to be ordered by the primary care team. Meanwhile I am going to start the patient on IV Lasix at 40 mg twice a day. I will obtain one more set of serial cardiac enzyme. Also I'll obtain an echocardiogram was Doppler. Past Medical History Past Medical History: Chest Pain / Angina, Diabetes Mellitus, Hypertension, Myocardial Infarction (AR), Musculoskeletal Disorder, Osteoarthritis (OA), Pulmonary Embolus (PE), Rheumatoid Arthritis (RA), Vascular Disorder Additional Past Medical History / Comment(s): PE in Left lung d/t a right DVT 2007. ANEMIA. HEART MURMUR. CHRONIC BACK PAIN. RAYNAUDS. Chronic insomnia. SOB. 2 diabetes 08/29/15. Ddd chronic back pain. Multiple sclerosis. liquid in the lungs Last Myocardial Infarction Date:: 2016 History of Any Multi-Drug Resistant Organisms: None Reported Past Surgical History: Adenoidectomy, Cholecystectomy, Heart Catheterization With Stent, Tonsillectomy, Tubal Ligation Additional Past Surgical History / Comment(s): CORY FUNDOPLASTY. REPAIR OF HOLE IN DIAPHRAGM. EGD. PAIN CINIC PROCEDURE Past Anesthesia/Blood Transfusion Reactions: No Reported Reaction Additional Past Anesthesia/Blood Transfusion Reaction / Comment(s): PT ADOPTED- FAMILY HX UNKNOWN Date of Last Stent Placement:: 2016 Smoking Status: Never smoker - Past Family History Father Family Medical History: Unable to Obtain Additional Family Medical History / Comment(s): PT ADOPTED-FAMILY HX UNKNOWN Son(s) Additional Family Medical History / Comment(s): Patient has 3 children and 2 history of cerebral palsy. One child has no major medical problems. Medications and Allergies Home Medications Medication Instructions Recorded Confirmed Type Lisinopril 20 mg PO HS 01/10/16 09/20/17 History Glimepiride [Amaryl] 1 mg PO AC-BRKFST 05/23/16 09/20/17 History hydrALAZINE HCL [Apresoline] 25 mg PO BID 05/23/16 09/20/17 History Cholecalciferol (Vitamin D3) 2,000 unit PO DAILY 08/27/16 09/20/17 History [Vitamin D3] Atorvastatin [Lipitor] 80 mg PO HS #90 tab 08/29/16 09/20/17 Rx Nitroglycerin Sl Tabs [Nitrostat] 0.4 mg SUBLINGUAL Q5M PRN #25 tab 08/29/1611/28 Rx Aspirin 81 mg PO HS 04/17/17 09/20/17 History Carvedilol [Coreg] 25 mg PO BID 04/17/17 09/20/17 History Furosemide [Lasix] 20 mg PO BID 04/17/17 09/20/17 History Insulin Glargine [Lantus] 18 unit SQ HS 04/17/17 09/20/17 History Sertraline [Zoloft] 100 mg PO DAILY 04/17/17 09/20/17 History cloNIDine HCL [Catapres] 0.1 mg PO BID 04/17/17 09/20/17 History metFORMIN HCL [metFORMIN HCL ER] 750 mg PO BID 04/17/17 09/20/17 History traZODone HCL [Desyrel] 150 mg PO HS 06/03/17 09/20/17 History Warfarin Sodium 5 mg PO DAILY 09/20/17 09/20/17 History Allergies Allergy/AdvReac Type Severity Reaction Status Date / Time tizanidine AdvReac Hallucinati Verified 09/20/17 04:06 ons Physical Exam Vitals: Vital Signs Temp Pulse Pulse Pulse Resp BP BP 09/20/17 08:00 97.7 F 72 18 09/20/17 07:53 09/20/17 04:45 97.7 F 59 L 18 152/78 09/20/17 04:08 97.8 F 09/20/17 03:33 88 18 138/67 09/20/17 01:48 69 09/20/17 01:34 97.7 F 69 20 155/77 BP Pulse Ox 09/20/17 08:00 170/88 99 09/20/17 07:53 97 09/20/17 04:45 99 09/20/17 04:08 09/20/17 03:33 98 09/20/17 01:48 09/20/17 01:34 97 Intake and Output 09/19/17 09/20/17 09/20/17 22:59 06:59 14:59 Other: Voiding Method Toilet # Voids 1 Weight 113.3 kg - Constitutional General appearance: no acute distress - Respiratory Respiratory: bilateral: diminished - Cardiovascular Rhythm: regular Heart sounds: normal: S1, S2 Abnormal Heart Sounds: systolic murmur Results 09/20/17 01:40 09/20/17 01:40 Cardiac Enzymes 09/20/17 09/20/17 09/20/17 Range/Units 01:40 01:40 08:08 AST 41 H (14-36) U/L CK-MB (CK-2) 0.9 1.0 (0.0-2.4) ng/mL Troponin I 0.013 0.019 (0.000-0.034) ng/mL Coagulation 09/20/17 Range/Units 01:40 PT 9.4 (9.0-12.0) sec APTT 22.4 (22.0-30.0) sec CBC 09/20/17 Range/Units 01:40 WBC 7.6 (3.8-10.6) k/uL RBC 4.64 (3.80-5.40) m/uL Hgb 13.9 (11.4-16.0) gm/dL Hct 41.0 (34.0-46.0) % Plt Count 228 (150-450) k/uL Comprehensive Metabolic Panel 09/20/17 Range/Units 01:40 Sodium 137 (137-145) mmol/L Potassium 3.7 (3.5-5.1) mmol/L Chloride 105 (98-107) mmol/L Carbon Dioxide 24 (22-30) mmol/L BUN 11 (7-17) mg/dL Creatinine 0.80 (0.52-1.04) mg/dL Glucose 241 H (74-99) mg/dL Calcium 9.4 (8.4-10.2) mg/dL AST 41 H (14-36) U/L ALT 50 (9-52) U/L Alkaline Phosphatase 108 (38-126) U/L Total Protein 6.2 L (6.3-8.2) g/dL Albumin 3.8 (3.5-5.0) g/dL Current Medications Generic Name Dose Route Start Last Admin Trade Name Freq PRN Reason Stop Dose Admin Hydrocodone Bitart/Acetaminophen 1 each 09/20/17 05:16 [facility] 5-325 PO Q6HR PRN Pain Aspirin 325 mg 09/21/17 09:00 Aspirin PO DAILY [facility] Atorvastatin Calcium 80 mg 09/20/17 21:00 Lipitor PO HS [facility] Carvedilol 25 mg 09/20/17 07:30 Coreg PO BID-W/MEALS [facility] Insulin Aspart 0 unit 09/20/17 12:30 Novolog SQ ACHS [facility] Protocol Morphine Sulfate 4 mg 09/20/17 05:16 09/20/17 05:37 Morphine Sulfate (Inj) IVP 4 mg Q4HR PRN Administration Pain Naloxone HCl 0.2 mg 09/20/17 03:03 Narcan IV Q2M PRN Opioid Reversal Nitroglycerin 0.4 mg 09/20/17 03:04 Nitrostat SUBLINGUAL Q5M PRN Chest Pain Intake and Output 09/19/17 09/20/17 09/20/17 22:59 06:59 14:59 Other: Voiding Method Toilet # Voids 1 Weight 113.3 kg 09/20/17 01:40 09/20/17 01:40 Assessment and Plan Assessment: Assessment #1 atypical/pleuritic chest discomfort in this patient was history of PE #2 congestive heart failure exacerbation likely related to diastole dysfunction #3 known coronary artery disease and prior stenting of the LAD #4 obesity #5 hypertension #6 dyslipidemia Plan #1 obtain one more set of serial cardiac enzymes #2 obtain an echocardiogram was Doppler #3 start the patient on IV diuretics #4 PE to be ruled out Thank you for allowing us but spitting her care and we'll continue to follow-up with the patient
--- NOTE | 2017-09-20 11:14 | CT ---
EXAMINATION TYPE: CT angio chest DATE OF EXAM: 09/20/2017 COMPARISON: 08/28/2017 HISTORY: 57 year-old female shortness of breath, elevated d-dimer; History of blood clots TECHNIQUE: Contiguous axial scanning of the chest performed with IV Contrast, patient injected with 1 00 ml mL of Isovue 370. Coronal/sagittal MIP reconstructions performed. CT DLP: 441.70 mGycm Automated exposure control for dose reduction was used. FINDINGS: The heart is borderline enlarged without pericardial effusion. Extensive coronary vessel calcificatio ns are present. Ectatic ascending aorta 3.6 cm. There is conventional arch vessel branching anatomy. Satisfactory opacification of the pulmonary arterial system. There is redemonstration of a small fill ing defect within the segmental basilar left lower lobe branch point, axial image 68. This shows furt her decrease in size from prior exam. No other pulmonary embolus is seen. A prominent 1.2 cm right paratracheal lymph node is unchanged. Otherwise, scattered small mediastinal lymph nodes are noted. Mild dependent atelectasis. No consolidation or pleural effusion. Again, small amount of reflux is noted into the hepatic veins. Circumferential wall thickening of the distal esophagus is redemonstrated. Visualized upper abdomen otherwise shows no gross abnormal. Bones: Degenerative disc disease mid to lower thoracic spine with accentuated lower thoracic kyphosis . IMPRESSION: 1. Tiny residual thrombus in the left lower lobe segmental branch point shows further decrease in siz e from 08/28/2017. No new pulmonary embolus seen. 2. Borderline cardiomegaly with CAD. 3. Redemonstrated moderate distal esophageal wall thickening and/or underlying hiatal hernia. Conside ration can be given to GI referral if not already performed.
--- NOTE | 2017-09-20 11:40 | ECHOF ---
Referral Reason:chf MEASUREMENTS -------- HEIGHT: 167.6 cm WEIGHT: 112.9 kg BP: RVIDd: 2.8 cm (< 3.3) IVSd: 1.1 cm (0.6 - 1.1) LVIDd: 5.2 cm (3.9 - 5.3) LVPWd: 1.2 cm (0.6 - 1.1) IVSs: 2.1 cm LVIDs: 2.8 cm LVPWs: 1.5 cm LA Diam: 4.6 cm (2.7 - 3.8) LAESV Index (A-L): 33.04 ml/m Ao Diam: 3.2 cm (2.0 - 3.7) AV Cusp: 1.9 cm (1.5 - 2.6) MV EXCURSION: 16.963 mm (> 18.000) MV EF SLOPE: 100 mm/s (70 - 150) EPSS: 0.5 cm MV E Horacio: 1.18 m/s MV DecT: 229 ms MV A Horacio: 0.56 m/s MV E/A Ratio: 2.11 AR PHT: 763 ms RAP: 5.00 mmHg RVSP: 47.22 mmHg FINDINGS -------- Sinus rhythm. This was a technically good study. The left ventricular size is normal. There is borderline concentric left ventricular hypertrophy. Overall left ventricular systolic function is normal with, an EF between 60 - 65 %. The right ventricle is normal in size. LA is midly dilated 29-33ml/m2. The right atrium is normal in size. The aortic valve is trileaflet and appears structurally normal. Mild mitral regurgitation is present. Mild tricuspid regurgitation present. There is moderate pulmonary hypertension. The right ventric ular systolic pressure, as measured by Doppler, is 47.22mmHg. There is no pulmonic regurgitation present. The aortic root size is normal. Normal inferior vena cava with normal inspiratory collapse consistent with estimated right atrial pre ssure of 5 mmHg. There is no pericardial effusion. CONCLUSIONS -------- 1. Sinus rhythm. 2. This was a technically good study. 3. The left ventricular size is normal. 4. There is borderline concentric left ventricular hypertrophy. 5. Overall left ventricular systolic function is normal with, an EF between 60 - 65 %. 6. The right ventricle is normal in size. 7. LA is midly dilated 29-33ml/m2. 8. The right atrium is normal in size. 9. The aortic valve is trileaflet and appears structurally normal. 10. Mild mitral regurgitation is present. 11. Mild tricuspid regurgitation present. 12. There is moderate pulmonary hypertension. 13. The right ventricular systolic pressure, as measured by Doppler, is 47.22mmHg. 14. There is no pulmonic regurgitation present. 15. The aortic root size is normal. 16. Normal inferior vena cava with normal inspiratory collapse consistent with estimated right atrial pressure of 5 mmHg. 17. There is no pericardial effusion. UPKEEP MECHANIC: Shara Alonso RDCS
[2017-09-20] MEDS: FUROSEMIDE 10 MG/ML 4 ML VIAL IV SCH ×2 (11:54→19:57)
[2017-09-20 12:20] LABS: Glucose,Whole Blood 241 mg/dL (75-99)
[2017-09-20] MEDS: hydrALAZINE HCL 25 MG TAB PO SCH ×2 (13:18→19:57)
[2017-09-20] MEDS: CARVEDILOL 12.5 MG TAB PO SCH ×2 (13:18→17:30)
[2017-09-20] MEDS: GLIMEPIRIDE 0.5 MG TAB PO SCH (13:18)
[2017-09-20] MEDS: SERTRALINE 100 MG TAB PO SCH (13:19)
[2017-09-20] MEDS: cloNIDine HCL 0.2 MG TAB PO SCH ×2 (13:19→19:57)
[2017-09-20] MEDS: INSULIN ASPART 100 UNIT/ML 1 ML 10 ML VIAL SQ SCH ×3 (13:22→19:55)
[2017-09-20] MEDS: HYDROcodone/APAP 5-325MG 1 EACH TAB PO PRN ×2 (13:25→19:44)
[2017-09-20 14:55] LABS: Glucose,Whole Blood 189 mg/dL (75-99)
[2017-09-20 14:57] LABS: Creatine Kinase 72 U/L (30-135)
[2017-09-20 15:09] LABS: Troponin I <0.012 ng/mL (0.000-0.034)
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
[2017-09-20 17:28] LABS: Glucose,Whole Blood 142 mg/dL (75-99)
[2017-09-20] MEDS: metFORMIN 500 MG TAB PO SCH (17:29)
[2017-09-20] MEDS ORDERED: WARFARIN 5 MG TAB PO SCH (18:00)
[2017-09-20 19:23] LABS: Hemoglobin A1C 8.4 % (4.0-6.0)
[2017-09-20 19:49] LABS: Glucose,Whole Blood 170 mg/dL (75-99)
[2017-09-20] MEDS: INSULIN DETEMIR 100 UNIT/ML 10 ML VIAL SQ SCH (19:56)
[2017-09-20] MEDS: LISINOPRIL 20 MG TAB PO SCH (19:57)
[2017-09-20] MEDS: traZODone HCL 100 MG TAB PO SCH (19:57)
[2017-09-20] MEDS: ATORVASTATIN 80 MG TAB PO SCH (19:58)
[2017-09-20] MEDS ORDERED: HEPARIN SODIUM,PORCINE 10,000 UNIT/ML 1 ML VIAL IV ONE (23:15)
[2017-09-20] MEDS ORDERED: HEPARIN SODIUM,PORCINE 5,000 UNIT/ML 1 ML VIAL IV PRN (23:15)
[2017-09-21 00:37] LABS: Basophils # (A) 0.1 k/uL (0-0.2); Basophils % (A) 1 %; Eosinophils # (A) 0.2 k/uL (0-0.7); Eosinophils % (A) 3 %; HCT 39.8 % (34.0-46.0); HGB 13.1 gm/dL (11.4-16.0); Lymphocytes # (A) 2.4 k/uL (1.0-4.8); Lymphocytes % (A) 38 %; MCH 29.9 pg (25.0-35.0); MCHC 32.9 g/dL (31.0-37.0); MCV 90.8 fL (80.0-100.0); Mean Platelet Volume 6.7; Monocytes # (A) 0.3 k/uL (0-1.0); Monocytes % (A) 5 %; Neutrophils # (A) 3.3 k/uL (1.3-7.7); Neutrophils % (A) 52 %; Platelet Count 207 k/uL (150-450); RBC 4.39 m/uL (3.80-5.40); RDW 12.6 % (11.5-15.5); WBC 6.4 k/uL (3.8-10.6)
[2017-09-21 00:52] LABS: INR 0.9 (<1.2); Partial Thromboplastin Time 23.5 sec (22.0-30.0); Prothrombin Time 9.4 sec (9.0-12.0)
[2017-09-21] MEDS: HEPARIN SOD,PORK IN 0.45% NACL 25,000 UNIT in 0.45% NACL 1 500ML.BAG IV SCH ×2 (01:54→12:52)
[2017-09-21 07:01] LABS: Glucose,Whole Blood 157 mg/dL (75-99)
--- NOTE | 2017-09-21 07:34 | HP ---
HISTORY AND PHYSICAL DATE OF SERVICE: 09/20/2017 CHIEF COMPLAINT: Shortness of breath and chest pain. HISTORY OF PRESENT ILLNESS: This 57-year-old woman with a past medical history of multiple medical problems including history of diabetes, hypertension, myocardial infarction, DJD, pulmonary embolism, rheumatoid arthritis, being followed by Dr. Solomon in the outpatient setting. The patient is complaining of severe squeezing type of chest pain and as well as some shortness of breath. The patient apparently had a cardiac catheterization last year. The patient also has history of CAD, stent. Also the patient has history of pulmonary embolism. Patient apparently is not very compliant with Coumadin. The Coumadin levels are subtherapeutic at this time and the D-dimer was elevated. BNP is also elevated. CTA showed evidence of pulmonary embolism which is diminished in intensity. Pulmonology and Cardiology consultation has been sought. A 2D echo with Doppler was also done which showed a ejection fraction 60-65% also. A chest x-ray showed no active involvement. The patient being closely monitored at this time. There is no history of fever, rigors, chills. No headache loss conscious seizures. The patient is seen by Dr. Lee and Dr. Hudson previously regarding the pulmonary embolism. PAST MEDICAL HISTORY: History of chest pain, diabetes, hypertension, myocardial infarction, DJD, pulmonary embolism, history of rheumatoid arthritis. MEDICATIONS: 1. Trazodone 100 mg q.h.s. p.r.n. 2. Amaryl 0.5 mg a.c. breakfast. 3. Lisinopril 40 mg daily. 4. Metformin 1500 mg p.c. supper. 5. Catapres 0.2 b.i.d. 6. Omeprazole 20 mg b.i.d. 7. Coumadin 5 mg p.o. daily. 8. Zoloft 100 mg. 9. Nitrostat 0.4 mg sublingual p.r.n. 10.Lantus 18 units subcu q.h.s. 11.Lasix 20 mg p.o. b.i.d. 12.Vitamin D 2000 daily. 13.Coreg 25 mg p.o. b.i.d. 14.Lipitor 80 mg q.h.s. 15.Aspirin 81 mg q.h.s. ALLERGIES: noted FAMILY HISTORY: Unable to obtain. Patient is adopted. SOCIAL HISTORY: No history of smoking. No history of alcohol. REVIEW OF SYSTEMS: ENT: No diminished hearing or vision. CARDIOVASCULAR: As mentioned. RESPIRATORY: As mentioned earlier. GI: No nausea. : No dysuria. NERVOUS SYSTEM: No numbness or weakness. ALLERGY/IMMUNOLOGY: As mentioned. MUSCULOSKELETAL: As mentioned earlier. HEMATOLOGY: No history of anemia. ENDOCRINE: Diabetes. CONSTITUTIONAL: As mentioned earlier. DERMATOLOGY: Negative. RHEUMATOLOGY: Negative. PSYCHIATRY: As mentioned earlier. PHYSICAL EXAMINATION: Alert, oriented x3. Pulse 57, blood pressure 131/71, respiration 18, temperature 97.4, pulse ox 97% room air. HEENT: Conjunctivae normal. Oral mucosa moist. NECK: No jugular venous distention. No carotid bruit. No lymph node enlargement. CARDIOVASCULAR: S1, S2. No S3, no S4. RESPIRATORY: Breath sounds diminished in the bases. A few scattered rhonchi. No crackles. ABDOMEN: Soft, obese, nontender. No mass palpable. LEGS: No edema, no swelling. NERVOUS SYSTEM: Higher functions as mentioned. Moves all four limbs. No focal motor deficits. LYMPHATICS: No lymphadenopathy in the neck, axillae, groin. SKIN: No ulcer, rash or bleeding. LABS: CBC within normal. D-dimer is 0.6 and glucose 177. ASSESSMENT: 1. Chest pain for evaluation, possible unstable angina. 2. Pulmonary embolism. 3. Esophageal thickening in the CT scan. 4. Subtherapeutic INR. 5. History of diabetes type 2. 6. Hypertension. 7. History of myocardial infarction. 8. History of degenerative joint disease. 9. History of pulmonary embolus. 10.History rheumatoid arthritis. 11.Obesity. 12.History of peripheral vascular disease. 13.remote history of deep vein thrombosis of the right lower extremity. 14.History of adenoidectomy. 15.History of coronary artery disease, stent. 16.Anxiety, bipolar. RECOMMENDATIONS AND DISCUSSION: In this 57-year-old woman who presented with multiple complex medical issues, we will monitor the patient closely. Continue the current management and symptomatic treatment. I will obtain cardiology and pulmonology consultations. I would also recommend IV heparin. Monitor PT/INR closely. Otherwise, Coumadin will be continued and follow closely with Cardiology as well. The patient also has some esophageal thickening in the CT scan which was also seen in the previous CT scan. I would also recommend Dr. Ochoa and gastroenterology consultation for further evaluation of that finding as well. Overall prognosis guarded because of multiple complex medical issues. Please note that the patient had a previous cardiac catheterization and as well as a stress test earlier this year, but however the patient might need further cardiac workup and monitoring at this time because of multiple complex medical issues. Further recommendations to follow. MMMAGGIEL / IJN: [id number] / MTDD
[2017-09-21 07:37] LABS: Basophils % (A) 1 %; Eosinophils # (A) 0.2 k/uL (0-0.7); Eosinophils % (A) 3 %; HGB 13.1 gm/dL (11.4-16.0); Lymphocytes # (A) 2.7 k/uL (1.0-4.8); Lymphocytes % (A) 44 %; MCH 29.7 pg (25.0-35.0); MCHC 32.7 g/dL (31.0-37.0); MCV 90.6 fL (80.0-100.0); Monocytes # (A) 0.3 k/uL (0-1.0); Monocytes % (A) 5 %; Neutrophils # (A) 2.7 k/uL (1.3-7.7); Neutrophils % (A) 45 %; Platelet Count 200 k/uL (150-450); RBC 4.41 m/uL (3.80-5.40); RDW 12.5 % (11.5-15.5)
[2017-09-21 07:57] LABS: Prothrombin Time 9.8 sec (9.0-12.0)
[2017-09-21 08:18] LABS: Calcium 9.1 mg/dL (8.4-10.2); Potassium 3.5 mmol/L (3.5-5.1)
[2017-09-21] MEDS: metFORMIN 500 MG TAB PO SCH ×2 (08:45→17:22)
[2017-09-21] MEDS: cloNIDine HCL 0.2 MG TAB PO SCH ×2 (08:56→19:58)
[2017-09-21] MEDS: hydrALAZINE HCL 25 MG TAB PO SCH ×2 (08:56→19:58)
[2017-09-21] MEDS: GLIMEPIRIDE 0.5 MG TAB PO SCH (08:56)
[2017-09-21] MEDS: SERTRALINE 100 MG TAB PO SCH (08:56)
[2017-09-21] MEDS: ASPIRIN 325 MG TAB PO SCH (08:56)
[2017-09-21] MEDS: HYDROcodone/APAP 5-325MG 1 EACH TAB PO PRN ×2 (08:56→19:57)
[2017-09-21] MEDS: CARVEDILOL 12.5 MG TAB PO SCH ×2 (08:57→17:29)
[2017-09-21] MEDS: INSULIN ASPART 100 UNIT/ML 1 ML 10 ML VIAL SQ SCH ×4 (08:58→19:57)
[2017-09-21] MEDS: FUROSEMIDE 10 MG/ML 4 ML VIAL IV SCH ×2 (08:58→19:58)
[2017-09-21] MEDS ORDERED: SODIUM CHLORIDE 0.9% 500 ML IV ONE (11:16)
--- NOTE | 2017-09-21 11:37 | PN ---
PROGRESS NOTE This patient was admitted with chest discomfort yesterday. Patient has a known history of prior coronary artery disease with extensive stenting to the mid and distal LAD. The patient has been diagnosed with a pulmonary embolism in April. At that time, the CT scan was not very clear cut. Subsequently patient had a repeat CT scan in August and yesterday. There is a small clot in the left lower lobe, which is not new and actually has decreased in the size as compared to the previous CT scan in August. There are not new blood clots. The patient has been complaining of some numbness and intermittent chest discomfort. The patient's cardiac enzymes are normal. EKG shows diffuse T wave inversions in the anterolateral leads. FINAL IMPRESSION: This patient has been having chest discomfort. The CAT scan does not show any evidence of new pulmonary embolism. There is a decrease in the size of the previous blood clot so I doubt that this patient had a recent pulmonary embolism during this admission. There are extensive ST-segment and T-wave changes. Rule out any evidence of significant restenosis at the site of prior LAD stent and the patient is advised further evaluation with a cardiac catheterization for definitive diagnosis. This will be done by Dr. Kadeem Marino on Saturday. MMODL / IJN: [id number] /
[2017-09-21 11:57] LABS: Glucose,Whole Blood 153 mg/dL (75-99)
[2017-09-21] MEDS: MORPHINE SULFATE 2 MG/ML SYRINGE IVP PRN ×3 (12:00→21:46)
[2017-09-21 12:08] LABS: Basophils # (A) 0.1 k/uL (0-0.2); Basophils % (A) 1 %; Eosinophils # (A) 0.2 k/uL (0-0.7); Eosinophils % (A) 3 %; HCT 38.4 % (34.0-46.0); HGB 12.7 gm/dL (11.4-16.0); Lymphocytes # (A) 2.9 k/uL (1.0-4.8); Lymphocytes % (A) 38 %; MCH 29.7 pg (25.0-35.0); Monocytes # (A) 0.4 k/uL (0-1.0); Monocytes % (A) 5 %; Neutrophils % (A) 52 %; Platelet Count 201 k/uL (150-450); RBC 4.26 m/uL (3.80-5.40); RDW 12.5 % (11.5-15.5); WBC 7.6 k/uL (3.8-10.6)
[2017-09-21] MEDS: NITROGLYCERIN OINT 1 INCH/GM PACKET TOPICAL SCH ×2 (12:19→17:58)
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
[2017-09-21] MEDS: CHOLECALCIFEROL 1,000 UNIT TAB PO SCH (13:36)
[2017-09-21] MEDS: PANTOPRAZOLE 40 MG/10 ML VIAL IVP SCH ×2 (13:40→20:27)
--- NOTE | 2017-09-21 15:13 | PN ---
PROGRESS NOTE DATE OF SERVICE: 09/21/2017 This 57-year-old woman who is admitted with chest pain and history of pulmonary embolism also esophageal thickening. The patient is complaining of diffuse abdominal pain mainly on the right side, left-sided chest pain which radiated down the left arm also, which is 10 out of 10 in intensity. Cardiology is following the patient closely. The patient was started on heparin and the patient being monitored closely. Patient been transferred to telemetry unit and some blood sugar is elevated. The troponin was negative. PAST MEDICAL HISTORY: Reviewed. REVIEW OF SYSTEMS: CARDIOVASCULAR SYSTEM: As mentioned earlier. RESPIRATORY SYSTEM: As mentioned earlier. GI: No nausea. : No dysuria. NERVOUS SYSTEM: No numbness or weakness. ALLERGY/IMMUNOLOGICAL: No asthma. MEDICATIONS: Current medications are reviewed and include. 1. [place] q.6 p.r.n. 2. Aspirin 325 mg daily. 3. Lipitor 80 mg. 4. Coreg 25 mg b.i.d. 5. Vitamin D3, 2000. 6. Catapres 0.2 b.i.d. 7. Lasix 40 mg IV b.i.d. 8. Heparin. 9. NovoLog. 10.Levemir. 11.Zestril. 12.Glucophage. 13.Nitrostat. 14.Protonix. 15.Zoloft. 16.Trazodone. 17.Coumadin. Doses are reviewed. PHYSICAL EXAMINATION: The patient is alert, oriented x3. Pulse is 51, blood pressure 120/70, respiration 18, temperature 97.3, pulse ox 97% on room air. HEENT: Conjunctivae normal. Oral mucosa moist. Neck is no jugular venous distention. No carotid bruit. No lymph node enlargement. CARDIOVASCULAR: S1 and S2 muffled. RESPIRATORY: Breath sounds are diminished at the bases. A few scattered rhonchi and crackles. ABDOMEN: Soft, nontender. LEGS: No edema, no swelling. NERVOUS SYSTEM: No focal deficits. LABS: D-dimer is 0.66 and glucose 153. Lipids are normal. ASSESSMENT: 1. Chest pain for evaluation of possible unstable angina. 2. Rule out myocardial infarction. 3. Pulmonary embolism. 4. Esophageal thickening on the CAT scan. 5. Subtherapeutic INR. 6. History of diabetes mellitus type 2. 7. Hypertension. 8. History of myocardial infarction. 9. History of degenerative joint disease. 10.History of pulmonary embolism. 11.History of rheumatoid arthritis. 12.Obesity. 13.History of peripheral vascular disease. 14.Remote history of deep venous thrombosis of the right lower extremity/. 15.History of adenoidectomy. 16.History of coronary artery disease, stent. 17.Anxiety, bipolar. RECOMMENDATIONS AND DISCUSSION: Recommend to continue current medications, continue with monitoring and symptomatic treatment. Otherwise at this time I would recommend continue with IV heparin drip. Cardiology consultation. Transfer to telemetry. Rule out myocardial infarction and a new set of troponins have been ordered. Use IV morphine for symptomatic treatment at this time and Further recommendations to follow. Continue the rest of the medications. The most recent EKG which was personally reviewed by me showed diffuse ST-T changes. Cardiology is planning cardiac catheterization. Further recommendations to follow. DELMAR / ANITHA: [id number] /
[2017-09-21 16:22] LABS: Glucose,Whole Blood 151 mg/dL (75-99)
[2017-09-21 19:51] LABS: Glucose,Whole Blood 178 mg/dL (75-99)
[2017-09-21] MEDS: INSULIN DETEMIR 100 UNIT/ML 10 ML VIAL SQ SCH (19:57)
[2017-09-21] MEDS: traZODone HCL 100 MG TAB PO SCH (19:58)
[2017-09-21] MEDS: ATORVASTATIN 80 MG TAB PO SCH (19:58)
[2017-09-21] MEDS: LISINOPRIL 20 MG TAB PO SCH (19:59)
[2017-09-22] MEDS: NITROGLYCERIN OINT 1 INCH/GM PACKET TOPICAL SCH ×5 (01:55→19:43)
[2017-09-22] MEDS: HEPARIN SOD,PORK IN 0.45% NACL 25,000 UNIT in 0.45% NACL 1 500ML.BAG IV SCH ×3 (01:55→19:47)
[2017-09-22 06:11] LABS: Glucose,Whole Blood 147 mg/dL (75-99)
[2017-09-22 06:27] LABS: Basophils % (A) 1 %; Eosinophils # (A) 0.2 k/uL (0-0.7); Eosinophils % (A) 3 %; HCT 38.6 % (34.0-46.0); HGB 12.7 gm/dL (11.4-16.0); Lymphocytes # (A) 3.1 k/uL (1.0-4.8); Lymphocytes % (A) 47 %; MCV 90.9 fL (80.0-100.0); Mean Platelet Volume 7.4; Monocytes # (A) 0.3 k/uL (0-1.0); Monocytes % (A) 5 %; Neutrophils # (A) 2.9 k/uL (1.3-7.7); Neutrophils % (A) 43 %; Platelet Count 200 k/uL (150-450); RBC 4.25 m/uL (3.80-5.40); RDW 12.6 % (11.5-15.5); WBC 6.6 k/uL (3.8-10.6)
[2017-09-22] MEDS: CARVEDILOL 12.5 MG TAB PO SCH ×2 (06:27→17:35)
[2017-09-22] MEDS: GLIMEPIRIDE 0.5 MG TAB PO SCH (06:27)
[2017-09-22] MEDS: INSULIN ASPART 100 UNIT/ML 1 ML 10 ML VIAL SQ SCH ×4 (06:27→21:18)
[2017-09-22] MEDS: metFORMIN 500 MG TAB PO SCH ×2 (06:28→17:30)
[2017-09-22 06:44] LABS: Potassium 3.6 mmol/L (3.5-5.1)
[2017-09-22 06:48] LABS: Prothrombin Time 10.3 sec (9.0-12.0)
[2017-09-22 06:55] LABS: Partial Thromboplastin Time >200.0 sec (22.0-30.0)
[2017-09-22] MEDS: CHOLECALCIFEROL 1,000 UNIT TAB PO SCH (07:50)
[2017-09-22] MEDS: cloNIDine HCL 0.2 MG TAB PO SCH ×2 (07:51→21:16)
[2017-09-22] MEDS: hydrALAZINE HCL 25 MG TAB PO SCH ×2 (07:51→21:17)
[2017-09-22] MEDS: SERTRALINE 100 MG TAB PO SCH (07:51)
[2017-09-22] MEDS: PANTOPRAZOLE 40 MG/10 ML VIAL IVP SCH ×2 (07:51→21:17)
[2017-09-22] MEDS: ASPIRIN 325 MG TAB PO SCH (07:51)
[2017-09-22] MEDS: FUROSEMIDE 10 MG/ML 4 ML VIAL IV SCH ×2 (07:51→21:16)
[2017-09-22 11:48] LABS: Glucose,Whole Blood 189 mg/dL (75-99)
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
[2017-09-22] MEDS: ALPRAZolam 0.5 MG TAB PO PRN ×2 (13:26→19:47)
[2017-09-22 17:13] LABS: Glucose,Whole Blood 163 mg/dL (75-99)
[2017-09-22] MEDS: SENNOSIDES 8.6 MG TAB PO PRN (17:36)
--- NOTE | 2017-09-22 17:59 | PN ---
PROGRESS NOTE DATE OF SERVICE: 09/22/2017 This 57-year-old woman is admitted chest pain and multiple other medical problems, slated to have cardiac catheterization tomorrow. No chest pain. No palpitations. No fever. PHYSICAL EXAM: Alert and oriented x3. Pulse is 53, blood pressure 133/760, respirations 16, temperature 97.7, pulse ox 94% on room air. HEENT: Conjunctivae normal. Oral mucosa moist. NECK: No jugular venous distention. No carotid bruit. No lymph node enlargement. CARDIOVASCULAR: S1, S2. RESPIRATORY: Breath sounds diminished in the bases. A few scattered rhonchi, no crackles. ABDOMEN: Soft and nontender. NERVOUS SYSTEM: No focal deficits. LABS: APTT more than 200. Other labs; CBC within normal noted. ASSESSMENT: 1. Chest pain for evaluation possible unstable angina for cardiac cath in a.m. 2. Myocardial infarction ruled out. 3. History of pulmonary embolism. 4. Esophageal thickening on the CT scan. 5. Subtherapeutic INR. 6. Diabetes mellitus type 2. 7. Heparin monitored. 8. Hypertension. 9. History of myocardial infarction. 10.History of degenerative joint disease. 11.History of pulmonary embolism. 12.History of rheumatoid arthritis. 13.Obesity. 14.History of peripheral vascular disease. 15.History of deep vein thrombosis of the right lower extremity remotely. 16.History of adenoidectomy. 17.History of coronary artery disease, stent. 18.Anxiety and bipolar. RECOMMENDATIONS AND DISCUSSION: I recommend to continue current management and symptomatic treatment. Continue with heparin. Cardiac catheterization. Continue rest of medications. Guarded prognosis because of multiple complex medical issues. Further recommendations to follow. MMODL / IJN: [id number] /
[2017-09-22] MEDS ORDERED: WARFARIN 10 MG TAB PO ONE (18:00)
[2017-09-22] MEDS: HYDROcodone/APAP 5-325MG 1 EACH TAB PO PRN (19:46)
[2017-09-22 21:01] LABS: Glucose,Whole Blood 174 mg/dL (75-99)
[2017-09-22] MEDS: ATORVASTATIN 80 MG TAB PO SCH (21:15)
[2017-09-22] MEDS: LISINOPRIL 20 MG TAB PO SCH (21:17)
[2017-09-22] MEDS: INSULIN DETEMIR 100 UNIT/ML 10 ML VIAL SQ SCH (21:18)
[2017-09-22] MEDS: traZODone HCL 100 MG TAB PO SCH (21:18)
[2017-09-22] MEDS: MORPHINE SULFATE 2 MG/ML SYRINGE IVP PRN (21:19)
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
--- NOTE | 2017-09-23 04:02 | PN ---
PROGRESS NOTE This patient was admitted with symptoms of chest pain. Clinically, pain appeared to be atypical pain. The patient had a borderline elevation in the troponin. The CT scan of the lung was performed which showed evidence of old pulmonary embolus. No evidence of any significant new pulmonary embolism. EKG showed diffuse T-wave inversions suggestive of anterior lateral ischemia. The patient is feeling better and is not having any significant chest pain. Blood pressure is 133/70 mmHg. Heart rate is 56 per minute. First and second heart sounds. Lungs are clinically clear to auscultation and percussion. Patient is currently getting IV heparin and INR is normal. Creatinine is 1.02. Patient is scheduled for cardiac catheterization by Dr. Kadeem Marino for tomorrow. MMODL / IJN: [id number] /
[2017-09-23 05:44] LABS: Glucose,Whole Blood 162 mg/dL (75-99)
[2017-09-23] MEDS: NITROGLYCERIN OINT 1 INCH/GM PACKET TOPICAL SCH ×2 (06:50→12:21)
[2017-09-23] MEDS: CARVEDILOL 12.5 MG TAB PO SCH ×2 (06:50→17:51)
[2017-09-23] MEDS: ASPIRIN 325 MG TAB PO SCH (06:51)
[2017-09-23] MEDS: cloNIDine HCL 0.2 MG TAB PO SCH ×2 (06:51→21:25)
[2017-09-23] MEDS: hydrALAZINE HCL 25 MG TAB PO SCH ×2 (06:52→21:26)
[2017-09-23] MEDS: PANTOPRAZOLE 40 MG/10 ML VIAL IVP SCH ×2 (06:52→21:26)
[2017-09-23] MEDS: ALPRAZolam 0.5 MG TAB PO PRN (06:53)
[2017-09-23] MEDS: GLIMEPIRIDE 0.5 MG TAB PO SCH (06:58)
[2017-09-23] MEDS: INSULIN ASPART 100 UNIT/ML 1 ML 10 ML VIAL SQ SCH ×4 (06:58→21:24)
[2017-09-23] MEDS: metFORMIN 500 MG TAB PO SCH (06:59)
[2017-09-23 07:07] LABS: Basophils % (A) 0 %; Eosinophils # (A) 0.2 k/uL (0-0.7); Eosinophils % (A) 4 %; HCT 37.4 % (34.0-46.0); HGB 12.3 gm/dL (11.4-16.0); Lymphocytes # (A) 2.5 k/uL (1.0-4.8); Lymphocytes % (A) 42 %; MCH 29.9 pg (25.0-35.0); MCV 90.7 fL (80.0-100.0); Mean Platelet Volume 8.5; Monocytes # (A) 0.4 k/uL (0-1.0); Monocytes % (A) 7 %; Neutrophils # (A) 2.7 k/uL (1.3-7.7); Neutrophils % (A) 45 %; Platelet Count 192 k/uL (150-450); RBC 4.12 m/uL (3.80-5.40); RDW 12.7 % (11.5-15.5)
[2017-09-23 07:13] LABS: Partial Thromboplastin Time 55.6 sec (22.0-30.0); Prothrombin Time 9.9 sec (9.0-12.0)
[2017-09-23 07:25] LABS: Anion Gap 5 mmol/L; Blood Urea Nitrogen 16 mg/dL (7-17); Calcium 8.9 mg/dL (8.4-10.2); Carbon Dioxide 25 mmol/L (22-30); Chloride 108 mmol/L (98-107); Glucose 157 mg/dL (74-99); Potassium 3.9 mmol/L (3.5-5.1); Sodium 138 mmol/L (137-145)
[2017-09-23] MEDS ORDERED: NITROGLYCERIN SL TABS 0.4 MG TAB SUBLINGUAL PRN (08:15)
[2017-09-23] MEDS ORDERED: ATORVASTATIN 80 MG TAB PO STA (08:15)
[2017-09-23] MEDS ORDERED: ASPIRIN 325 MG TAB PO STA (08:15)
[2017-09-23] MEDS ORDERED: SODIUM CHLORIDE 0.9% 1,000 ML in EMPTY BAG 1 BAG IV ONE (08:15)
[2017-09-23] MEDS ORDERED: ALPRAZolam 0.25 MG TAB PO PRN (08:15)
[2017-09-23] MEDS ORDERED: ALPRAZolam 0.5 MG TAB PO PRN (08:15)
[2017-09-23] MEDS: SERTRALINE 100 MG TAB PO SCH (08:57)
[2017-09-23] MEDS: FUROSEMIDE 10 MG/ML 4 ML VIAL IV SCH (08:57)
[2017-09-23 11:42] LABS: Glucose,Whole Blood 190 mg/dL (75-99)
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
[2017-09-23] MEDS: CHOLECALCIFEROL 1,000 UNIT TAB PO SCH (12:16)
[2017-09-23] MEDS: HEPARIN SOD,PORK IN 0.45% NACL 25,000 UNIT in 0.45% NACL 1 500ML.BAG IV SCH (12:22)
--- NOTE | 2017-09-23 13:51 | PN ---
PROGRESS NOTE DATE OF SERVICE: 09/23/2017 This 57-year-old woman is admitted with multiple symptomatology including chest pain, slated to have a cardiac catheterization today. No chest pain. No palpitations. No fever today. EXAM: GENERAL: Alert and oriented times three. VITAL SIGNS: Pulse is 54, blood pressure 116/70, respiration 18, temperature 97 degrees, pulse ox 98% on room air. HEENT: Conjunctivae normal. NECK: No jugular venous distention. No carotid bruit. CARDIOVASCULAR: S1, S2. RESPIRATORY: Breath sounds diminished in the bases. No rhonchi. No crackles. ABDOMEN: Abdomen is soft, nontender. LEGS: No edema. No swelling. CENTRAL NERVOUS SYSTEM: No focal deficits. LABS: CBC within normal limits. Sodium 130, potassium 3.9. ASSESSMENT: 1. Chest pain for evaluation possible unstable angina for cardiac cath. 2. Myocardial infarction ruled out. 3. History of pulmonary embolus. 4. History of thickening of the CT scan. 5. Subtherapeutic INR. 6. Diabetes type 2. 7. Heparin monitoring. 8. Hypertension. 9. History of myocardial infarction. 10.History of degenerative joint disease. 11.History of pulmonary embolism. 12.History of rheumatoid arthritis. 13.Obesity. 14.History of peripheral vascular disease. 15.History of deep vein thrombosis in the right lower extremity remotely. 16.History of adenoidectomy. 17.History of coronary artery disease/stent. 18.History of anxiety/bipolar. RECOMMENDATIONS AND DISCUSSION: 1. Recommend to continue current medications. 2. Monitor. 3. Symptomatic treatment. 4. At this time I recommend follow closely with Cardiology and cardiac cath. Further recommendations to follow MMODL / IJN: [id number] /
[2017-09-23] MEDS ORDERED: MIDAZOLAM 2 MG/2 ML VIAL IV ONE (14:24)
[2017-09-23] MEDS ORDERED: diphenhydrAMINE 50 MG/ML 1 ML VIAL IVP ONE (14:24)
[2017-09-23] MEDS ORDERED: IV FLUID CONTINUATION 1,000 ML IV ONE (14:24)
[2017-09-23] MEDS ORDERED: LIDOCAINE 1% INJ 10MG/ML (20 ML MDV) SQ ONE (14:26)
[2017-09-23] MEDS ORDERED: NITROGLYCERIN 1000MCG/10ML SYRINGE INTRAARTER ONE (14:44)
[2017-09-23] MEDS ORDERED: BIVALIRUDIN 250 MG in SODIUM CHLORIDE 0.9% 50 ML IV ONE (14:45)
[2017-09-23] MEDS ORDERED: BIVALIRUDIN BOLUS 250 MG/50 ML IV ONE (14:45)
[2017-09-23] MEDS ORDERED: IOPAMIDOL-370 100ML BTL INJ ONE ×2 (15:00→15:02)
[2017-09-23] MEDS ORDERED: CLOPIDOGREL 75 MG TAB PO ONE (15:00)
[2017-09-23] MEDS ORDERED: MAG HYDROX/AL HYDROX/SIMETH 30 ML CUP PO PRN (15:10)
[2017-09-23] MEDS ORDERED: ATROPINE SULFATE 0.1 MG/ML 10ML SYRINGE IV PRN (15:10)
[2017-09-23] MEDS ORDERED: RX INFO: IV CONTRAST WAS GIVEN 1 EACH MISC MISCELLANE PRN (15:10)
[2017-09-23] MEDS ORDERED: traZODone HCL 100 MG TAB PO PRN (15:13)
[2017-09-23 16:09] LABS: Glucose,Whole Blood 125 mg/dL (75-99)
[2017-09-23 17:13] LABS: Glucose,Whole Blood 134 mg/dL (75-99)
[2017-09-23] MEDS: SODIUM CHLORIDE 0.9% 1,000 ML IV SCH (17:50)
[2017-09-23] MEDS ORDERED: WARFARIN 5 MG TAB PO SCH (18:00)
[2017-09-23] MEDS: WARFARIN 2.5 MG TAB PO SCH (18:02)
[2017-09-23] MEDS: HYDROcodone/APAP 5-325MG 1 EACH TAB PO PRN (19:38)
--- NOTE | 2017-09-23 19:54 | CC ---
CARDIAC CATHETERIZATION REPORT DATE OF SERVICE: 09/23/2017. PROCEDURE: 1. Left heart catheterization and coronary angiography. 2. PTCA and stenting of major diagonal branch of LAD in its proximal portion with a drug-eluting stent. PERFORMED BY: Dr. Kadeem Marino. Moderate conscious sedation time was 27 minutes. Patient was administered a combination of Versed and Benadryl. Her oxygen saturation, hemodynamics and EKG were monitored closely. CLINICAL INFORMATION: Mrs. Danica Jackson is a 56-year-old lady who presented with an acute non ST elevation MT and underwent stenting of LAD performed by me in two areas in August 2016. A week or 10 days later, she had a total occlusion of the vessel when she stop taking her aspirin and Plavix and predilatation was performed in [place]. She then had a episode of what seemed to be a pulmonary embolism and was on Coumadin and aspirin. She was admitted to the hospital with episode of chest discomfort with EKG changes without significant troponin elevation. She was advised coronary angiography after evaluation by Dr. Carlos Alberto Kim. PROCEDURE NOTE: Under local anesthesia and strict aseptic precautions, a 6-Tamazight introducer was placed in the right femoral artery. Using standard Antelmo catheters, I performed coronary angiography. I noted that the patient had a significant new lesion in the proximal portion of the major diagonal branch of about 99% with a sluggish flow in the diagonal. She was advised intervention that was performed in the same setting. Following the intervention procedure, Angio-Seal device was used to secure hemostasis and she was sent to the room in a stable condition. PCI PROCEDURE DETAILS: I used a standard left Antelmo guide catheter to cannulate the left coronary artery and a run-through wire was used to cross the lesion in the diagonal branch. Predilatation was performed with a 2.25 caliber 8 mm long Trek balloon. Subsequently a 2.5 caliber 12 mm Xience stent was deployed at 11 atmospheres. Patient had mild chest discomfort, but no significant EKG changes. Excellent angiographic result without complication was achieved. She received 600 mg of Plavix. She also received Angiomax bolus and infusion as per protocol. CORONARY ANGIOGRAPHY FINDINGS: RIGHT CORONARY ARTERY: Technically this is a dominant vessel. There is moderate calcification and there are areas of narrowing involving the right coronary artery of about 30% to 40% and distally bifurcates into a smaller PLV and larger PDA, both of which supply a sizable amount of myocardium. The mid RCA has about a 40% lesion form with [id number] calcification. LEFT MAIN CORONARY ARTERY: It is a long vessel, tortuous, free of significant disease that bifurcates into LAD and circumflex. Left main itself is free of significant disease. LEFT ANTERIOR DESCENDING CORONARY ARTERY: Good caliber vessel extends along the anterior wall. The mid and distal LAD at the site of stenting is patent, but there are diffuse areas of narrowing, but no significant lesion is noted in the LAD. The flow in the LAD is quite brisk and it gives off septal and diagonal branches and also the inferoapical and the distal portion of the LAD has mild diffuse disease, but no significant lesion is noted. A major diagonal branch comes off from the LAD in the proximal portion and this diagonal branch has a 99% subtotal lesion with sluggish flow and this appears to be the culprit lesion. LEFT POSTERIOR CIRCUMFLEX CORONARY ARTERY: Technically a nondominant vessel that gives off an obtuse marginal and then runs in the AV groove. Obtuse marginal has about a 35% mid narrowing. No other significant disease is noted. FINAL IMPRESSION: This patient has a diffusely diseased LAD, but at the site of previous stenting in the mid and distal LAD, the vessel is widely patent with good flow. Major diagonal branch has a 99% stenosis. The circumflex marginal has no significant disease other than a 35% mid narrowing. RCA is dominant, has a 40% proximal lesion. RECOMMENDATION: I recommend intervention of the major diagonal branch and that was performed in the same setting. Excellent angiographic result without complication was achieved and a drug-eluting 2.5 caliber 12 mm long Xience stent was deployed. MMODL / IJN: [id number] /
--- NOTE | 2017-09-23 19:54 | LTR ---
September 23, 2017 Re: Danica Jackson Dear Dr. Solomon, Thank you for the opportunity to participate in the care of Mrs. Danica Jackson. Please find enclosed my detailed procedure note for your records. This lady has known LAD lesion and had a previous non ST elevation [place] and underwent stenting in two areas of LAD in August of last year, complicated by a total occlusion when she stop taking her aspirin and Plavix within 2 weeks and this vessel was redilated in [place]. She now presents with unstable angina and the LAD lesions are patent, but there is a new lesion in the diagonal branch. This was addressed by a drug-eluting stent with excellent result. I expect that she will be discharged in the next 24 to 36 hours. Thank you for your referral and please call for questions. With kindest regards. Sincerely yours, MD DELMAR Lou / ANITHA: [id number] /
[2017-09-23] MEDS: INSULIN DETEMIR 100 UNIT/ML 10 ML VIAL SQ SCH (21:23)
[2017-09-23] MEDS: MORPHINE SULFATE 4 MG/ML SYRINGE IVP PRN (21:24)
[2017-09-23] MEDS: ATORVASTATIN 80 MG TAB PO SCH (21:25)
[2017-09-23] MEDS: LISINOPRIL 20 MG TAB PO SCH (21:26)
[2017-09-23] MEDS: traZODone HCL 100 MG TAB PO SCH (21:26)
[2017-09-23 21:31] LABS: Glucose,Whole Blood 245 mg/dL (75-99)
[2017-09-24] MEDS: SODIUM CHLORIDE 0.9% 1,000 ML IV SCH (04:47)
[2017-09-24 06:03] LABS: Glucose,Whole Blood 151 mg/dL (75-99)
[2017-09-24] MEDS: GLIMEPIRIDE 0.5 MG TAB PO SCH (06:37)
[2017-09-24] MEDS: INSULIN ASPART 100 UNIT/ML 1 ML 10 ML VIAL SQ SCH ×4 (06:37→21:32)
[2017-09-24] MEDS: CARVEDILOL 12.5 MG TAB PO SCH ×2 (06:37→17:10)
[2017-09-24 07:18] LABS: Basophils % (A) 0 %; Eosinophils # (A) 0.2 k/uL (0-0.7); Eosinophils % (A) 3 %; HCT 37.2 % (34.0-46.0); HGB 12.2 gm/dL (11.4-16.0); Lymphocytes % (A) 33 %; MCH 30.1 pg (25.0-35.0); MCHC 32.8 g/dL (31.0-37.0); MCV 91.8 fL (80.0-100.0); Mean Platelet Volume 7.2; Monocytes # (A) 0.3 k/uL (0-1.0); Monocytes % (A) 5 %; Neutrophils # (A) 3.5 k/uL (1.3-7.7); Neutrophils % (A) 57 %; Platelet Count 188 k/uL (150-450); RBC 4.05 m/uL (3.80-5.40); RDW 12.6 % (11.5-15.5); WBC 6.2 k/uL (3.8-10.6)
[2017-09-24 07:22] LABS: Prothrombin Time 9.8 sec (9.0-12.0)
[2017-09-24 07:32] LABS: Anion Gap 6 mmol/L; Blood Urea Nitrogen 15 mg/dL (7-17); Calcium 9.1 mg/dL (8.4-10.2); Carbon Dioxide 25 mmol/L (22-30); Chloride 108 mmol/L (98-107); Glucose 145 mg/dL (74-99); Potassium 4.2 mmol/L (3.5-5.1); Sodium 139 mmol/L (137-145)
[2017-09-24] MEDS: ASPIRIN 81 MG PO SCH (09:28)
[2017-09-24] MEDS: cloNIDine HCL 0.2 MG TAB PO SCH ×2 (09:28→20:36)
[2017-09-24] MEDS: SERTRALINE 100 MG TAB PO SCH (09:29)
[2017-09-24] MEDS: PANTOPRAZOLE 40 MG/10 ML VIAL IVP SCH ×2 (09:29→20:37)
[2017-09-24] MEDS: CLOPIDOGREL 75 MG TAB PO SCH (09:29)
[2017-09-24] MEDS: hydrALAZINE HCL 25 MG TAB PO SCH ×2 (09:29→20:36)
[2017-09-24] MEDS: MORPHINE SULFATE 4 MG/ML SYRINGE IVP PRN (10:18)
[2017-09-24 11:51] LABS: Glucose,Whole Blood 178 mg/dL (75-99)
[2017-09-24] MEDS: CHOLECALCIFEROL 1,000 UNIT TAB PO SCH (12:20)
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
[2017-09-24] MEDS: HYDROcodone/APAP 5-325MG 1 EACH TAB PO PRN (13:56)
[2017-09-24] MEDS ORDERED: ACETAMINOPHEN TAB 325 MG TAB PO PRN (16:21)
[2017-09-24 16:54] LABS: Glucose,Whole Blood 217 mg/dL (75-99)
[2017-09-24] MEDS: WARFARIN 2.5 MG TAB PO SCH (17:11)
--- NOTE | 2017-09-24 17:52 | PN ---
PROGRESS NOTE DATE OF SERVICE: 09/24/2017 This 57-year-old woman was admitted with chest pain, had a cardiac catheterization yesterday and a cardiac cath and as well as stenting of the diagonal branch. The patient has been closely monitored. No chest pain. No palpitations. No fever. EXAM: Alert and oriented times three. Pulse is 55. Blood pressure 140/58. Respiration 20. Temp 97.4, pulse ox 97% on room air. HEENT: Conjunctivae normal. Neck: No jugular venous distention. No carotid bruit. Cardiac: S1, S2. Respiration: Breath sounds diminished in the bases. A few rhonchi. No crackles. Abdomen is soft, nontender. Legs are no edema, no swelling. LABS: CBC within normal limits. Chloride is 108. Glucose 151. ASSESSMENT: 1. Chest pain possible coronary artery disease, status post cardiac catheterization and stenting to the diagonal. 2. Myocardial infarction ruled out. 3. History of pulmonary embolus. 4. History of thickening in the esophagus in the CT scan. 5. Subtherapeutic INR, improving. 6. Diabetes type 2. 7. Heparin monitoring. 8. Hypertension. 9. History of myocardial infarction. 10.History of degenerative joint disease. 11.History of pulmonary embolism. 12.History of rheumatoid arthritis. 13.History of obesity. 14.History of peripheral vascular disease. 15.History of deep vein thrombosis of the right lower extremity, remotely. 16.History of adenoidectomy. 17.History of coronary artery disease, stent. 18.History of anxiety/bipolar. RECOMMENDATIONS AND DISCUSSION: Recommend to continue current medications, medical management, continue with monitoring, symptomatic treatment. Otherwise, at this time, I would recommend closely monitor. Continue the antiplatelet agents. Also recommend anticoagulation as well. INR is 1 at this time. Continue to monitor. MMODL / IJN: [id number] /
[2017-09-24] MEDS: LISINOPRIL 20 MG TAB PO SCH (20:36)
[2017-09-24] MEDS: ATORVASTATIN 80 MG TAB PO SCH (20:36)
[2017-09-24 21:03] LABS: Glucose,Whole Blood 198 mg/dL (75-99)
[2017-09-24] MEDS: INSULIN DETEMIR 100 UNIT/ML 10 ML VIAL SQ SCH (21:32)
[2017-09-24] MEDS: SENNOSIDES 8.6 MG TAB PO PRN (21:37)
[2017-09-24] MEDS: traZODone HCL 100 MG TAB PO SCH (21:37)
[2017-09-25 06:10] LABS: Glucose,Whole Blood 171 mg/dL (75-99)
[2017-09-25 06:11] LABS: Basophils % (A) 1 %; Eosinophils # (A) 0.2 k/uL (0-0.7); Eosinophils % (A) 3 %; HCT 38.1 % (34.0-46.0); HGB 12.3 gm/dL (11.4-16.0); Lymphocytes # (A) 2.3 k/uL (1.0-4.8); Lymphocytes % (A) 37 %; MCH 29.7 pg (25.0-35.0); MCHC 32.3 g/dL (31.0-37.0); MCV 92.1 fL (80.0-100.0); Mean Platelet Volume 7.1; Monocytes # (A) 0.4 k/uL (0-1.0); Monocytes % (A) 6 %; Neutrophils # (A) 3.3 k/uL (1.3-7.7); Neutrophils % (A) 52 %; Platelet Count 177 k/uL (150-450); RBC 4.14 m/uL (3.80-5.40); RDW 12.6 % (11.5-15.5); WBC 6.3 k/uL (3.8-10.6)
[2017-09-25] MEDS: INSULIN ASPART 100 UNIT/ML 1 ML 10 ML VIAL SQ SCH ×3 (06:11→17:16)
[2017-09-25] MEDS: CARVEDILOL 12.5 MG TAB PO SCH ×2 (06:12→17:17)
[2017-09-25] MEDS: GLIMEPIRIDE 0.5 MG TAB PO SCH (06:12)
[2017-09-25 06:14] LABS: Prothrombin Time 10.1 sec (9.0-12.0)
[2017-09-25 06:20] LABS: Calcium 9.3 mg/dL (8.4-10.2); Potassium 4.4 mmol/L (3.5-5.1)
[2017-09-25] MEDS: ASPIRIN 81 MG PO SCH (08:54)
[2017-09-25] MEDS: CLOPIDOGREL 75 MG TAB PO SCH (08:56)
[2017-09-25] MEDS: SERTRALINE 100 MG TAB PO SCH (08:56)
[2017-09-25] MEDS: cloNIDine HCL 0.2 MG TAB PO SCH (08:56)
[2017-09-25] MEDS: hydrALAZINE HCL 25 MG TAB PO SCH (08:56)
[2017-09-25] MEDS ORDERED: PANTOPRAZOLE 40 MG TABLET PO SCH (09:00)
[2017-09-25 10:03] VITALS: RESP 20
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
[2017-09-25 11:13] LABS: Glucose,Whole Blood 166 mg/dL (75-99)
[2017-09-25] MEDS: CHOLECALCIFEROL 1,000 UNIT TAB PO SCH (12:28)
--- NOTE | 2017-09-25 14:29 | P.PN ---
Subjective Progress Note Date: 09/24/17 Patient is status post PTCA and stenting of the major diagonal branch of the LAD in the proximal portion. She was seen and examined today, complaining of some pain and burning in the inner portion of her thigh on the side where her procedure was performed. Right groin site clean and dry, no hematoma, good distal pulse. She denies any chest pain, hemodynamically she stable. EKG shows a normal sinus rhythm with no changes from post-PCI. Patient has been initiated back on Coumadin at 2-1/2 mg daily. Because of the discomfort she's having today, we will keep an eye on the patient for another 24 hours. Objective - Vital Signs Vital signs: Vital Signs Temp 97 F L 09/25/17 04:00 Pulse 54 L 09/25/17 08:00 Resp 20 09/25/17 08:00 BP 127/67 09/25/17 08:00 Pulse Ox 97 09/25/17 08:00 Intake & Output 09/24/17 09/25/17 09/25/17 18:59 06:59 18:59 Intake Total 420 480 Output Total 800 Balance 420 -320 Weight 113.4 kg 115 kg Intake: Oral 420 480 Output: Urine 800 Other: Voiding Method Toilet # Voids 3 1 - Exam PHYSICAL EXAMINATION: GENERAL: 57-year-old female in no acute distress at the time of my examination HEENT: Head is atraumatic, normocephalic. Pupils equal, round. Sclera anicteric. Conjunctiva are clear. Mucous membranes of the mouth are moist. Neck is supple. There is no elevated jugular venous pressure.] bruit is heard. HEART EXAMINATION: Heart S1, S2 normal. No murmur or gallop heard. CHEST EXAMINATION: Lungs are clear to auscultation and precussion. No chest wall tenderness is noted on palpation or with deep breathing. ABDOMEN: Soft, nontender. Bowel sounds are heard. No organomegaly noted. Right groin soft, no evidence of any hematoma. EXTREMITIES: 2+ peripheral pulses with no evidence of peripheral edema and no calf tenderness noted. NEUROLOGIC patient is awake, alert and oriented ?-3. . - Labs CBC & Chem 7: 09/25/17 05:39 09/25/17 05:39 Labs: Abnormal Lab Results - Last 24 Hours (Table) 09/24/17 09/24/1709/25/18 Range/Units 16:51 21:00 05:39 Chloride 109 H (98-107) mmol/L BUN 18 H (7-17) mg/dL Glucose 155 H (74-99) mg/dL POC Glucose (mg/dL) 217 H 198 H (75-99) mg/dL 09/25/17 09/25/17 Range/Units 06:09 11:04 Chloride (98-107) mmol/L BUN (7-17) mg/dL Glucose (74-99) mg/dL POC Glucose (mg/dL) 171 H 166 H (75-99) mg/dL Assessment and Plan Plan: Assessment and plan #1 status post angioplasty and stenting of a major diagonal branch of the LAD #2 known history of coronary artery with prior PCI #3 hypertension #4 hyperlipidemia #5 history of PE for which she takes Coumadin Plan We will continue the patient on her current medications, and Coumadin 2.5 mg daily to her medication regime. She's been encouraged to be up ambulating in the hallway. Plan for possible discharge home in 24 hours if stable. DNP note has been reviewed, I agree with a documented findings and plan of care. Patient was seen and examined.
--- NOTE | 2017-09-25 14:30 | P.PN ---
Subjective Progress Note Date: 09/25/17 Patient is status post PTCA and stenting of the major diagonal branch of the LAD in the proximal portion. She was seen and examined today, complaining of some pain and burning in the inner portion of her thigh on the side where her procedure was performed. Right groin site clean and dry, no hematoma, good distal pulse. She denies any chest pain, hemodynamically she stable. EKG shows a normal sinus rhythm with no changes from post-PCI. Patient has been initiated back on Coumadin at 2-1/2 mg daily. Because of the discomfort she's having today, we will keep an eye on the patient for another 24 hours. 09/25/2017 Patient seen and examined this morning, denies any chest pain, no discomfort in her leg today. Hemodynamically she is stable. Objective - Vital Signs Vital signs: Vital Signs Temp 97 F L 09/25/17 04:00 Pulse 54 L 09/25/17 08:00 Resp 20 09/25/17 08:00 BP 127/67 09/25/17 08:00 Pulse Ox 97 09/25/17 08:00 Intake & Output 09/24/17 09/25/17 09/25/17 18:59 06:59 18:59 Intake Total 420 480 Output Total 800 Balance 420 -320 Weight 113.4 kg 115 kg Intake: Oral 420 480 Output: Urine 800 Other: Voiding Method Toilet # Voids 3 1 - Exam PHYSICAL EXAMINATION: GENERAL: 57-year-old female in no acute distress at the time of my examination HEENT: Head is atraumatic, normocephalic. Pupils equal, round. Sclera anicteric. Conjunctiva are clear. Mucous membranes of the mouth are moist. Neck is supple. There is no elevated jugular venous pressure.] bruit is heard. HEART EXAMINATION: Heart S1, S2 normal. No murmur or gallop heard. CHEST EXAMINATION: Lungs are clear to auscultation and precussion. No chest wall tenderness is noted on palpation or with deep breathing. ABDOMEN: Soft, nontender. Bowel sounds are heard. No organomegaly noted. Right groin soft, no evidence of any hematoma. EXTREMITIES: 2+ peripheral pulses with no evidence of peripheral edema and no calf tenderness noted. NEUROLOGIC patient is awake, alert and oriented ?-3. . - Labs CBC & Chem 7: 09/25/17 05:39 09/25/17 05:39 Labs: Abnormal Lab Results - Last 24 Hours (Table) 09/24/17 09/24/17 09/25/17 Range/Units 16:51 21:00 05:39 Chloride 109 H (98-107) mmol/L BUN 18 H (7-17) mg/dL Glucose 155 H (74-99) mg/dL POC Glucose (mg/dL) 217 H 198 H (75-99) mg/dL 09/25/17 09/25/17 Range/Units 06:09 11:04 Chloride (98-107) mmol/L BUN (7-17) mg/dL Glucose (74-99) mg/dL POC Glucose (mg/dL) 171 H 166 H (75-99) mg/dL Assessment and Plan Plan: Assessment and plan #1 status post angioplasty and stenting of a major diagonal branch of the LAD #2 known history of coronary artery with prior PCI #3 hypertension #4 hyperlipidemia #5 history of PE for which she takes Coumadin Plan From cardiology's perspective, patient may be able to be discharged home today. We will make her a follow-up appointment in the office to see Dr. KARENA Marino post discharge. DNP note has been reviewed, I agree with a documented findings and plan of care. Patient was seen and examined.
[2017-09-25 15:13] VITALS: PULSE 50
[2017-09-25 16:16] VITALS: BP 136/82; TEMP 97.7
[2017-09-25 16:30] LABS: Glucose,Whole Blood 285 mg/dL (75-99)
[2017-09-25] MEDS: WARFARIN 2.5 MG TAB PO SCH (17:17)
[2017-09-25] MEDS ORDERED: metFORMIN 500 MG TAB PO SCH (17:30)
--- NOTE | 2017-09-25 21:41 | DS ---
DISCHARGE SUMMARY DATE OF SERVICE: 09/25/2017 FINAL DIAGNOSES: 1. Chest pain possible CAD, status post cardiac cath and stenting to the diagonal. 2. History of pulmonary embolus. 3. History of thickening of the esophagus on the CT scan. 4. Subtherapeutic INR, improving. 5. Diabetes type 2. 6. Heparin monitor. 7. Hypertension. 8. History of myocardial infarction. 9. History of degenerative joint disease. 10.History of pulmonary embolus. 11.History rheumatoid arthritis. 12.History of obesity. 13.History of peripheral vascular disease. 14.History of deep vein thrombosis of the right lower extremity remotely. 15.History of adenoidectomy. 16.History of coronary artery disease and stent. 17.History of anxiety, bipolar. DISCHARGE DISPOSITION: The patient will be discharged in stable condition with guarded prognosis. HISTORY OF PRESENT ILLNESS: This 57-year-old woman with past medical history was admitted with chest pain. Cardiology performed a cardiac catheterization and stenting of the diagonal and the patient also had features of pulmonary embolism and recommend evaluation currently. The patient was seen by pulmonology, as well as Hematology/Oncology also. The patient improved significantly. The patient was discharged in a stable condition with guarded prognosis after clearance from multiple consultants. Total time taken 35 minutes. On exam, vitals are stable. CARDIOVASCULAR SYSTEM: S1, S2. ABDOMEN: Soft. NERVOUS: No focal deficits. DISCHARGE ADVICE AND MEDICATIONS: 1. Diet is cardiac diet. 2. Activity limited until followup. 3. Follow up with Dr. Solomon in 2-3 days. 4. Follow up with Dr. Kadeem Marino b.i.jose. and Dr. Rea as recommended. MEDICATIONS ARE: 1. Aspirin 81 mg q.h.s. 2. Coreg 25 mg b.i.d. 3. Vitamin D3 2000 daily. 4. Catapres 0.2 b.i.d. 5. Lasix 20 mg b.i.d. 6. Amaryl 0.5 mg. 7. Apresoline 25 mg b.i.d. 8. Lantus 18 units subcu q.h.s. 9. Lisinopril 40 mg q.h.s. 10.Zoloft 100 mg p.o. daily. 11.Desyrel 100 mg q.h.s. 12.Lipitor 80 mg q.h.s. 13.Plavix 75 mg p.o. daily. 14.Metformin 750 p.o. b.i.d. 15.Nitrostat 0.4 mg p.r.n. 16.Protonix 40 mg. 17.Senokot 8.6 b.i.d. 18.Desyrel 100 mg q.h.s. 19.Coumadin 2.5 mg p.o. daily. Follow up with Dr. Hudson as advised. Follow up labs, CBC, BMP, PT/INR with Dr. Solomon and continue to follow. MMODL / IJN: [id number] /
== END 2017-09-25 18:29 | disposition home or self-care (01) | DRG 247 ==
LOC: EC 01:14 → 3OBS 03:03 → OBSVTOIN 09-21 07:00 → 6SEL 09-21 12:33
PROVIDERS: ADMIT Hospitalist; ATTEND Hospitalist
PROC: 027034Z Dilation of Coronary Artery, One Artery with Drug-eluting Intraluminal Device, Percutaneous Approach (ICD-10-PCS; principal; 2017-09-23 13:45)
PROC: B2111ZZ Fluoroscopy of Multiple Coronary Arteries using Low Osmolar Contrast (ICD-10-PCS; principal; 2017-09-23 13:45)
PROC: 4A023N7 Measurement of Cardiac Sampling and Pressure, Left Heart, Percutaneous Approach (ICD-10-PCS; principal; 2017-09-23 13:45)
DX: I25.10 Atherosclerotic heart disease of native coronary artery without angina pectoris (principal); I50.32 Chronic diastolic (congestive) heart failure; E11.51 Type 2 diabetes mellitus with diabetic peripheral angiopathy without gangrene; E66.01 Morbid (severe) obesity due to excess calories; R79.1 Abnormal coagulation profile; M06.9 Rheumatoid arthritis, unspecified; E78.5 Hyperlipidemia, unspecified; F41.9 Anxiety disorder, unspecified; G35 Multiple sclerosis; M19.90 Unspecified osteoarthritis, unspecified site; E78.00 Pure hypercholesterolemia, unspecified; I11.0 Hypertensive heart disease with heart failure; I27.20 Pulmonary hypertension, unspecified; I73.00 Raynaud's syndrome without gangrene; G47.00 Insomnia, unspecified; K44.9 Diaphragmatic hernia without obstruction or gangrene; G89.29 Other chronic pain; M54.9 Dorsalgia, unspecified; Z86.718 Personal history of other venous thrombosis and embolism; Z86.711 Personal history of pulmonary embolism; I25.2 Old myocardial infarction; Z79.02 Long term (current) use of antithrombotics/antiplatelets; Z79.82 Long term (current) use of aspirin; Z79.4 Long term (current) use of insulin; Z79.899 Other long term (current) drug therapy; Z88.8 Allergy status to other drugs, medicaments and biological substances; Z90.49 Acquired absence of other specified parts of digestive tract
CPT/HCPCS: 36415; 71046; 71275; 80048; 80053; 80061; 82550; 82553; 83036; 83735; 83880; 84484; 85025; 85379; 85610; 85730; 93005; 93306; 93452; 94760; 99285

== ENCOUNTER 2019-10-16 11:42 | Inpatient (IN) | payer OTHER ==
[2019-10-16] MEDS ORDERED: SODIUM CHLORIDE 0.9% 1,000 ML IV ONE (11:49)
[2019-10-16] MEDS ORDERED: ASPIRIN 81 MG PO STA (11:49)
[2019-10-16] MEDS ORDERED: NITROGLYCERIN OINT 1 INCH/GM PACKET TOPICAL STA (11:49)
[2019-10-16] MEDS ORDERED: INSULIN REGULAR BOLUS (FROM DRIP BAG) IV ONE (11:50)
[2019-10-16] MEDS ORDERED: hydrALAZINE HCL 20 MG/ML 1 ML VIAL IVP STA (11:55)
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
[2019-10-16] MEDS ORDERED: INSULIN REGULAR 100 UNIT in SODIUM CHLORIDE 0.9% 100 ML IV SCH (12:00)
[2019-10-16 12:03] LABS: Basophils # (A) 0.1 k/uL (0-0.2); Basophils % (A) 1 %; Eosinophils # (A) 0.2 k/uL (0-0.7); Eosinophils % (A) 3 %; HCT 45.8 % (34.0-46.0); HGB 15.3 gm/dL (11.4-16.0); Lymphocytes # (A) 2.3 k/uL (1.0-4.8); Lymphocytes % (A) 34 %; MCH 29.9 pg (25.0-35.0); MCHC 33.5 g/dL (31.0-37.0); Mean Platelet Volume 7.7; Monocytes # (A) 0.4 k/uL (0-1.0); Monocytes % (A) 5 %; Neutrophils # (A) 3.8 k/uL (1.3-7.7); Neutrophils % (A) 56 %; Platelet Count 199 k/uL (150-450); RBC 5.14 m/uL (3.80-5.40); RDW 12.4 % (11.5-15.5); WBC 6.8 k/uL (3.8-10.6)
[2019-10-16 12:06] LABS: Glucose,Whole Blood 354 mg/dL (75-99)
[2019-10-16 12:13] LABS: INR 0.9 (<1.2); Prothrombin Time 9.4 sec (9.0-12.0)
[2019-10-16 12:14] LABS: Partial Thromboplastin Time 22.8 sec (22.0-30.0)
[2019-10-16 12:27] LABS: ALT 55 U/L (4-34); AST 53 U/L (14-36); African American GFR (CKD) >90 (>60 ml/min/1.73 sqM); Alkaline Phosphatase 143 U/L (38-126); Anion Gap 9 mmol/L; Blood Urea Nitrogen 8 mg/dL (7-17); Calcium 9.1 mg/dL (8.4-10.2); Carbon Dioxide 25 mmol/L (22-30); Chloride 102 mmol/L (98-107); Glucose 345 mg/dL (74-99); Magnesium 1.8 mg/dL (1.6-2.3); Non-African American GFR(CKD) >90 (>60 ml/min/1.73 sqM); Potassium 3.7 mmol/L (3.5-5.1); Sodium 136 mmol/L (137-145); Total Bilirubin 0.4 mg/dL (0.2-1.3); Total Protein 6.4 g/dL (6.3-8.2)
--- NOTE | 2019-10-16 12:29 | XR ---
EXAMINATION TYPE: XR chest 2V DATE OF EXAM: 10/16/2019 CLINICAL HISTORY: Chest pain TECHNIQUE: Frontal and lateral views of the chest are obtained. COMPARISON: Chest radiograph 09/20/2017 FINDINGS: The cardiomediastinal silhouette is within normal limits for size. Pulmonary vasculature i s normal. There is no focal air space opacity, pleural effusion, or pneumothorax seen. The osseous st ructures are intact. IMPRESSION: No acute cardiopulmonary process.
[2019-10-16 12:53] LABS: Glucose,Whole Blood 293 mg/dL (75-99)
[2019-10-16] MEDS ORDERED: LORazepam 2 MG/ML INJ IV STA (13:00)
[2019-10-16] MEDS ORDERED: HEPARIN SODIUM,PORCINE 5,000 UNIT/ML 1 ML VIAL IV PRN (14:21)
[2019-10-16] MEDS ORDERED: HEPARIN SODIUM,PORCINE 5,000 UNIT/ML 1 ML VIAL IV ONE (14:21)
[2019-10-16] MEDS ORDERED: HEPARIN SOD,PORK IN 0.45% NACL 25,000 UNIT in 0.45% NACL 1 250ML.BAG IV SCH (14:30)
[2019-10-16] MEDS: amLODIPine 5 MG TAB PO SCH (15:10)
[2019-10-16] MEDS ORDERED: hydrALAZINE HCL 25 MG TAB PO PRN (16:20)
--- NOTE | 2019-10-16 16:41 | P.HPIM ---
History of Present Illness This is a pleasant 59 his old female with past medical history of coronary artery disease, status post stent placement, heart failure, diabetes mellitus, deep venous thrombosis, pulmonary embolism. she came because of high sugar when she checked it at home it was 334, also she had couple of chest pains at home today , it is central like something was sitting on her chest , and radiating to left arm and back with rating of 9/10 down currently to 4/10 associated with some lightheadedness and sob, but not any more she supposed to be on metformin but has not taking it for about two years , and she is not taking any other medication , she moved from [place] when she used to see a doctor there, she has an appointment with dr. morales on November 2019 she has history of three heart attacks before on , 09/2017 and 2018 and she used to see dr. navarro she has h/o of dvt/pe in 2015 , she took her anticoagulation for 2-3 months and then her doctor stopped them for her she denies smoking or alcohol or illicit drug On admission her blood pressure was 231/106, currently 152/70. Rest of vitals looks stable. Labs reviewed showing unremarkable CBC, INR, BMP. Liver enzymes are slightly elevated. With AST is 53 and ALT 55. Bilirubin is normal. Sugar was high on admission of 345, currently 293, her acetone is negative. Troponins 2 are negative with 0.014 and 0.0-1. Chest x-ray: No acute process. EKG showing normal sinus rhythm with no significant ST-T changes and prolonged QTC of 533. In the emergency room patient was started on heparin drip. Aspirin 324, nitroglycerin and insulin. Also received IV hydralazine and Ativan continue with heparin drip and aspirin. Review of Systems CONSTITUTIONAL: No fever, no malaise, no fatigue. HEENT: No recent visual problems or hearing problems. Denied any sore throat. CARDIOVASCULAR: No orthopnea, PND, no palpitations, no syncope. PULMONARY: No shortness of breath, no cough, no hemoptysis. GASTROINTESTINAL: No diarrhea, no nausea, no vomiting, no abdominal pain. Normoactive bowel sounds. NEUROLOGICAL: No headaches, no weakness, no numbness. HEMATOLOGICAL: Denies any bleeding or petechiae. GENITOURINARY: Denies any burning micturition, frequency, or urgency. MUSCULOSKELETAL/RHEUMATOLOGICAL: Denies any joint pain, swelling, or any muscle pain. ENDOCRINE: Denies any polyuria or polydipsia. Past Medical History Past Medical History: Coronary Artery Disease (CAD), Chest Pain / Angina, Heart Failure, Diabetes Mellitus, Deep Vein Thrombosis (DVT), Eye Disorder, Hypertension, Myocardial Infarction ([place]), Musculoskeletal Disorder, Pulmonary Embolus (PE), Vascular Disorder Additional Past Medical History / Comment(s): IDDM type II, neuropathy bilateral hands, feet, chronic back pain/unable to stand straight/DDD, DJD, pt unsure what type of arthritis she has, MS diagnosed years ago, DVT R lower extremity/PE L lung, PVD, bilateral cataracts and glaucoma, insomnia, anemia Last Myocardial Infarction Date:: 2016 History of Any Multi-Drug Resistant Organisms: None Reported Past Surgical History: Adenoidectomy, Cholecystectomy, Heart Catheterization With Stent, Tonsillectomy, Tubal Ligation Additional Past Surgical History / Comment(s): EGD, randy fundoplasty, diaphragmatic hole repair, pain clinic procedures. Past Anesthesia/Blood Transfusion Reactions: No Reported Reaction Additional Past Anesthesia/Blood Transfusion Reaction / Comment(s): PT ADOPTED- FAMILY HX UNKNOWN. Pt has received blood in past without reaction. Date of Last Stent Placement:: 2017 Smoking Status: Never smoker - Past Family History Father Family Medical History: Unable to Obtain Additional Family Medical History / Comment(s): PT ADOPTED-FAMILY HX UNKNOWN Son(s) Additional Family Medical History / Comment(s): Patient has 3 children and 2 history of cerebral palsy-one son with CP is . One child has no major medical problems. Medications and Allergies Home Medications Medication Instructions Recorded Confirmed Type No Known Home Medications 10/16/19 10/16/19 History Allergies Allergy/AdvReac Type Severity Reaction Status Date / Time tizanidine AdvReac Hallucinati Verified 10/16/19 11:50 ons Physical Exam Vitals: Vital Signs Temp Pulse Pulse Resp BP BP Pulse Ox 10/16/19 16:00 96.6 F L 77 16 152/70 98 10/16/19 12:55 79 18 166/80 100 10/16/19 12:38 97.6 F 80 18 185/83 98 10/16/19 11:43 98.6 F 83 18 231/106 100 Intake and Output 10/16/19 10/16/19 10/16/19 06:59 14:59 22:59 Other: # Voids 1 Weight 98.3 kg GENERAL: The patient is alert and oriented x3, not in any acute distress. Well developed, well nourished. HEENT: Pupils are round and equally reacting to light. EOMI. No scleral icterus. No conjunctival pallor. Normocephalic, atraumatic. No pharyngeal erythema. No thyromegaly. CARDIOVASCULAR: S1 and S2 present. No murmurs, rubs, or gallops. PULMONARY: Chest is clear to auscultation, no wheezing or crackles. ABDOMEN: Soft, nontender, nondistended, normoactive bowel sounds. No palpable o rganomegaly. MUSCULOSKELETAL: No joint swelling or deformity. EXTREMITIES: No cyanosis, clubbing, or pedal edema. NEUROLOGICAL: Gross neurological examination did not reveal any focal deficits. SKIN: No rashes. No petechiae Results CBC & Chem 7: 10/16/19 11:55 10/16/19 11:55 Labs: Abnormal Lab Results - Last 24 Hours (Table) 10/16/19 10/16/19 10/16/19 Range/Units 11:55 12:05 12:52 Sodium 136 L (137-145) mmol/L Glucose 345 H (74-99) mg/dL POC Glucose (mg/dL) 354 H 293 H (75-99) mg/dL AST 53 H (14-36) U/L ALT 55 H (4-34) U/L Alkaline Phosphatase 143 H (38-126) U/L Thrombosis Risk Factor Assmnt - Choose All That Apply Any of the Below Risk Factors Present?: Yes Each Factor Represents 1 point: Age 41-60 years, Obesity (BMI >25) Other Risk Factors: Yes Each Risk Factor Represents 3 Points: History of DVT/PE Other congenital or acquired thrombophilia - If yes, enter type in comment: No Thrombosis Risk Factor Assessment Total Risk Factor Score: 5 Thrombosis Risk Factor Assessment Level: High Risk Assessment and Plan Assessment: Chest pain, rule out cardiac causes Hypertensive urgency Diabetes mellitus, with hyperglycemia non adherence and non compliance to therapy Prolonged QTC Hypertension Hyperlipidemia History of coronary artery disease status post stent Heart failure History of DVT and pulmonary embolism obese BMI 36 Plan: this is a pleasant 59 years old female who presents with chest pain. We'll reduce her troponin. Cardiology consult. We'll start the patient on metoprolol 25 mg twice a day. Monitor blood pressure and is continue with blood pressure medication now. Continue with insulin sliding scale. Check hemoglobin A1c. Labs and medication were reviewed.. Continue same treatment. Continue with symptomatic treatment. Resume home medication. Monitor lytes and vitals. DVT and GI prophylaxis. Further recommendations of the clinical course of the patient DVT prophylaxis: heparin GI Prophylaxis: Pepcid PT/OT: Pending Prognosis is guarded
[2019-10-16 16:55] LABS: Glucose,Whole Blood 231 mg/dL (75-99)
[2019-10-16] MEDS: NITROGLYCERIN OINT 1 INCH/GM PACKET TOPICAL SCH (17:09)
[2019-10-16] MEDS: INSULIN ASPART (NovoLOG) 100 UNIT/ML VIAL SQ SCH ×2 (17:09→20:31)
[2019-10-16] MEDS: NITROGLYCERIN SL TABS 0.4 MG TAB SUBLINGUAL PRN ×3 (18:50→19:04)
[2019-10-16] MEDS: ATORVASTATIN 80 MG TAB PO SCH (20:25)
[2019-10-16 20:28] LABS: Glucose,Whole Blood 256 mg/dL (75-99)
[2019-10-16] MEDS ORDERED: METOPROLOL TARTRATE 25 MG TAB PO SCH (21:00)
--- NOTE | 2019-10-16 21:13 | P.CRDCN ---
History of Present Illness History of present illness: This is Dr. Ren dictating a consult on this patient The patient was interviewed and examined IMPRESSION / ASSESSMENT: Recurrent discomfort in the chest prior to admission Since she has been in the ER she's had a pressure-like sensation which is initially very mild and has progressively become worse through the evening Initially blood pressure was elevated, now better controlled, between 140-150 mmHg systolic Known coronary artery disease status post stenting of the diagonal vessel last area This time the pressure sensation in his chest similar to the discomfort she had last year except that there is no radiation to the upper back and arm Very subtle ECG changes sequentially with inversion of the T waves in V2-V4 as compared to the EKG done at noontime Type 2 diabetes, uncontrolled Known costochondritis with chest wall tenderness Bipolar disorder Normal kidney function PLAN: Hypertension management, continue statins antiplatelet agents heparin beta blockers Proceed with coronary angiography Discussed with Dr. Chaidez HPI Patient presented around noontime with recurrent midsternal chest discomfort. Later this became a pressure-like sensation. Initially the pressure-like sensation was quite mild but as the evening progressed, the pressure became worse and worse up to 610 Initial ECGs did not show any ST segment abnormalities However the follow-up ECG from the evening when she was experiencing 6 out of 10 pressure-like sensation mid chest, showed subtle biphasic/T-wave inversions V2- V4 Very tiny trickle in the troponin levels Initially elevated blood pressures, better controlled now Uncontrolled diabetes Past history of CAD status post stenting to the diagonal vessel ROS: No fever chills or rigors, no cough, phlegm or expectoration, no nausea, vomiting or diarrhea, no hematuria, dysuria, no musculoskeletal complaints, no strokes or seizures, no skin lesions. EXAMINATION: Upon my examination she is lying flat in bed. She is still experiencing for a chin chest pressure which reminded her of last year's episode Afebrile 90F pulse rate in the 70s normal respirations, blood pressure 152/70 mmHg Heart sounds are soft no murmurs no gallops Chest wall tenderness, patient is known costochondritis Abdomen is soft No JVD Clear lungs no rhonchi no crackles REVIEW OF LABS, ECG & MEDICAL DATA Minimal rise in troponin T-wave inversion V2-V4 in her third ECG during chest discomfort Chest x-ray within normal limits Hemoglobin 15 Sodium 136 potassium 3.7 BUN 8 creatinine 0.55 Elevated glucose Past Medical History Past Medical History: Coronary Artery Disease (CAD), Chest Pain / Angina, Heart Failure, Diabetes Mellitus, Deep Vein Thrombosis (DVT), Eye Disorder, Hypertension, Myocardial Infarction (AL), Musculoskeletal Disorder, Pulmonary Embolus (PE), Vascular Disorder Additional Past Medical History / Comment(s): IDDM type II, neuropathy bilateral hands, feet, chronic back pain/unable to stand straight/DDD, DJD, pt unsure what type of arthritis she has, MS diagnosed years ago, DVT R lower extremity/PE L lung, PVD, bilateral cataracts and glaucoma, insomnia, anemia Last Myocardial Infarction Date:: 2016 History of Any Multi-Drug Resistant Organisms: None Reported Past Surgical History: Adenoidectomy, Cholecystectomy, Heart Catheterization With Stent, Tonsillectomy, Tubal Ligation Additional Past Surgical History / Comment(s): EGD, randy fundoplasty, diaphragmatic hole repair, pain clinic procedures. Past Anesthesia/Blood Transfusion Reactions: No Reported Reaction Additional Past Anesthesia/Blood Transfusion Reaction / Comment(s): PT ADOPTED- FAMILY HX UNKNOWN. Pt has received blood in past without reaction. Date of Last Stent Placement:: 2017 Smoking Status: Never smoker - Past Family History Father Family Medical History: Unable to Obtain Additional Family Medical History / Comment(s): PT ADOPTED-FAMILY HX UNKNOWN Son(s) Additional Family Medical History / Comment(s): Patient has 3 children and 2 history of cerebral palsy-one son with CP is . One child has no major medical problems. Medications and Allergies Home Medications Medication Instructions Recorded Confirmed Type No Known Home Medications 10/16/19 10/16/19 History Allergies Allergy/AdvReac Type Severity Reaction Status Date / Time tizanidine AdvReac Hallucinati Verified 10/16/19 11:50 ons Physical Exam Vitals: Vital Signs Temp Pulse Pulse Resp BP BP Pulse Ox 10/16/19 20:00 79 16 10/16/19 19:29 98 F 83 18 152/80 99 10/16/19 18:57 96.6 F L 91 20 175/84 100 10/16/19 16:00 96.6 F L 77 16 152/70 98 10/16/19 12:55 79 18 166/80 100 10/16/19 12:38 97.6 F 80 18 185/83 98 10/16/19 11:43 98.6 F 83 18 231/106 100 Intake and Output 10/16/19 10/16/19 10/16/19 06:59 14:59 22:59 Intake Total 240 Balance 240 Intake: Oral 240 Other: Voiding Method Toilet # Voids 1 Weight 98.3 kg Results 10/16/19 11:55 10/16/19 11:55 Cardiac Enzymes 10/16/19 10/16/19 10/16/19 Range/Units 11:55 11:55 14:47 AST 53 H (14-36) U/L Troponin I 0.014 0.021 (0.000-0.034) ng/mL 10/16/19 Range/Units 17:38 AST (14-36) U/L Troponin I 0.024 (0.000-0.034) ng/mL Coagulation 10/16/19 Range/Units 11:55 PT 9.4 (9.0-12.0) sec APTT 22.8 (22.0-30.0) sec CBC 10/16/19 Range/Units 11:55 WBC 6.8 (3.8-10.6) k/uL RBC 5.14 (3.80-5.40) m/uL Hgb 15.3 (11.4-16.0) gm/dL Hct 45.8 (34.0-46.0) % Plt Count 199 (150-450) k/uL Comprehensive Metabolic Panel 10/16/19 Range/Units 11:55 Sodium 136 L (137-145) mmol/L Potassium 3.7 (3.5-5.1) mmol/L Chloride 102 (98-107) mmol/L Carbon Dioxide 25 (22-30) mmol/L BUN 8 (7-17) mg/dL Creatinine 0.55 (0.52-1.04) mg/dL Glucose 345 H (74-99) mg/dL Calcium 9.1 (8.4-10.2) mg/dL AST 53 H (14-36) U/L ALT 55 H (4-34) U/L Alkaline Phosphatase 143 H (38-126) U/L Total Protein 6.4 (6.3-8.2) g/dL Albumin 4.0 (3.5-5.0) g/dL Current Medications Generic Name Dose Route Start Last Admin Trade Name Freq PRN Reason Stop Dose Admin Amlodipine Besylate 5 mg 10/16/19 14:30 10/16/19 15:10 Norvasc PO 5 mg DAILY ALHAJI Administration Aspirin 81 mg 10/17/19 09:00 Aspirin PO DAILY [facility] Atorvastatin Calcium 80 mg 10/16/19 21:00 10/16/19 20:25 Lipitor PO 80 mg HS ALHAJI Administration Heparin Sodium (Porcine) 0 unit 10/16/19 14:21 Heparin IV PER PROTOCOL PRN Low PTT Protocol Hydralazine HCl 25 mg 10/16/19 16:20 10/16/19 18:49 Apresoline PO 25 mg BID PRN Administration Blood Pressure - High Heparin Sodium/Sodium Chloride 250 mls @ 10 mls/hr 10/16/19 14:30 10/16/19 15:10 25,000 unit/ Sodium Chloride IV 10.173 units/kg/hr .Q24H ALHAJI 10 mls/hr Administration Protocol 10.173 UNITS/KG/HR Insulin Aspart 0 unit 10/16/19 17:30 10/16/19 20:31 Novolog SQ 6 unit ACHS ALHAJI Administration Protocol Metoprolol Tartrate 25 mg 10/16/19 21:00 10/16/19 20:26 Lopressor PO 25 mg BID ALHAJI Administration Nitroglycerin 0.4 mg 10/16/19 13:01 10/16/19 19:04 Nitrostat SUBLINGUAL 0.4 mg Q5M PRN Administration Chest Pain Nitroglycerin 1 inch 10/16/19 18:00 10/16/19 17:09 Nitro-Bid Oint TOPICAL 1 inch Q6HR ALHAJI Administration Intake and Output 10/16/19 10/16/19 10/16/19 06:59 14:59 22:59 Intake Total 240 Balance 240 Intake: Oral 240 Other: Voiding Method Toilet # Voids 1 Weight 98.3 kg Patient Weight 10/17/19 06:59 Weight 98.3 kg 10/16/19 11:55 10/16/19 11:55
[2019-10-16] MEDS ORDERED: fentaNYL (PF) 50 MCG/ML 2 ML AMP ONE (21:16)
[2019-10-16] MEDS ORDERED: LIDOCAINE 1% INJ 10MG/ML (20 ML MDV) ONE (21:16)
[2019-10-16] MEDS ORDERED: IV FLUID CONTINUATION 450 ML IV ONE (21:19)
[2019-10-16] MEDS ORDERED: fentaNYL (PF) 50 MCG/ML 2 ML AMP IV ONE (21:26)
[2019-10-16] MEDS: MIDAZOLAM 2 MG/2 ML VIAL IV ONE ×2 (21:27→21:31)
[2019-10-16] MEDS ORDERED: LIDOCAINE 1% INJ 10MG/ML (20 ML MDV) SQ ONE (21:29)
[2019-10-16] MEDS ORDERED: HEPARIN SODIUM 1,000 UN/ML (10ML VL) ONE (21:38)
[2019-10-16] MEDS ORDERED: NITROGLYCERIN-D5W PMX 50 MG in DEXTROSE/WATER 1 250ML.BAG IV ONE (21:52)
[2019-10-16] MEDS ORDERED: IOPAMIDOL-370 125ML BTL INJ ONE (22:02)
[2019-10-16] MEDS ORDERED: RX INFO: IV CONTRAST WAS GIVEN 1 EACH MISC MISCELLANE PRN (22:07)
[2019-10-16] MEDS ORDERED: NITROGLYCERIN-D5W PMX 50 MG in DEXTROSE/WATER 1 250ML.BAG IV SCH (22:30)
[2019-10-16 22:39] LABS: Glucose,Whole Blood 168 mg/dL (75-99)
--- NOTE | 2019-10-16 22:48 | P.CARDCATH ---
Date of Procedure: 10/16/19 Preoperative Diagnosis: Unstable angina Postoperative Diagnosis: Same Description of Procedure: INDICATION: Chest pain concerning for unstable angina HISTORY: 59-year-old female with history of coronary artery disease status post non-STEMI in August 2016 where she had stenting of her LAD as well as in-stent stenosis 10 days after that secondary to discontinuation of aspirin and Plavix. Additionally has a history of apparent pulmonary embolism with treatment with Coumadin. She then was found to have a 99% stenosis of a moderate diagonal branch with a stent placed in September 2017. She presented to the hospital today initially with complaints of elevated glucose. She did however start to have chest pain in the emergency department. The pain has been fairly persistent throughout the day. She had workup including troponins which were 0.014, 0.021, 0.024. Her EKG showed normal sinus rhythm with anteroseptal infarct. Due to unstable type symptoms, a heart catheterization was discussed with the patient and patient was agreeable. Of note her blood pressure in the catheterization lab was extremely elevated with pressures approximately 190s over 100s. PROCEDURE: After the risks, benefits and alternatives of the above mentioned procedure explained in detail with the patient, informed consent was obtained. Patient was taken to the catheterization lab and prepped and draped in usual fashion. 1% lidocaine was used to anesthetize the right femoral artery. A 6- [place] sheath was placed in the right femoral artery using modified Seldinger technique and micropuncture technique. Left coronary angiography was performed with a 6-[place]oz[place] JL 4 catheter and right coronary angiography was performed with a 6-[place]oz[place] JR4 catheter in various views. The diagonal branches seem to be occluded and there was consideration of acute event. Therefore the decision was made to attempt to wear the lesion. At the time patient was still having 3-4 out of 10 chest pain. An additional 5000 units of heparin was given. A 6- [place] EBU 3.5 guide was used to engage the left main. There was a sharp double bend at the origin of the diagonal branch and the diagonal branch was unable to be engaged using a 0.014 BMW or whisper wire. The lesion was behaving like a [employer] and prior echo from that day did show concern of scar. Additionally there were modest left to left collaterals to the diagonal branch. 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 The procedure was ended. A right femoral angiogram was performed which showed adequate closure for Angio-Seal. An Angio-Seal was placed and hemostasis was achieved. The patient tolerated the procedure well. Patient was transported back to the post catheterization holding area in stable condition. Conscious Sedation: Patient was monitored under the direct supervision of vision of myself for conscious sedation using 2 mg Versed and 2 mcg fentanyl for a total duration of 31 minutes HEMODYNAMICS: Initial blood pressure is 190/110, heart rate 80 SELECTIVE CORONARY ARTERIOGRAPHY: LEFT MAIN: The left main is a long, large caliber vessel which bifurcates into the LAD and circumflex. There is no significant stenosis. LEFT ANTERIOR DESCENDING CORONARY ARTERY: LAD is a large caliber vessel which wraps around to the apex. There is diffuse disease of the LAD with heavy calcif ication of the mid and distal LAD. Diagonal 1 is occluded at its origin at the site of the prior stent. There are left to left collaterals to the diagonal 1 branch. The mid LAD after diagonal 2 has a 40-50% stenosis. There is a mid to distal LAD stent which has mild 20% in-stent stenosis. There is a distal 70% stenosis at the apex. Diagonal 2 bifurcates into 2 small branches with the inferior branch having a 80% stenosis however is less than 1.5 mm in caliber. LEFT CIRCUMFLEX CORONARY ARTERY: Left circumflex is a moderate caliber vessel. Circumflex has 20% mid stenosis then gives off a small caliber OM1 branch which has a proximal 60% stenosis. It then gives off a moderate caliber OM to branch which has a proximal 40% stenosis. RIGHT CORONARY ARTERY: The right coronary artery is a large caliber vessel which gives off a PDA and PLV branch and is the dominant vessel. There is diffuse disease of the RCA. There is a proximal long 30-40% stenosis followed by a mid 50-60% stenosis which appears unchanged from prior imaging. There are faint right to left collaterals. FINAL IMPRESSION: 1. Diffuse multivessel disease relatively unchanged from 2018 catheterization except for occluded diagonal 1 branch. Initial concern for an acute coronary syndrome with ongoing chest pain but suspect diagonal 1 branch is a [employer] and angina is from supply demand mismatch from uncontrolled hypertension. Patient given aggressive nitroglycerin with improvement of chest pain by the end of the case. 2. Other moderate disease including RCA 50- 60% stenosis, small caliber OM1 with 60% stenosis and diffuse heavily calcified LAD with mid 40-50% stenosis. PLAN: 1. Aggressive risk factor modification per most recent ACC/AHA guidelines. 2. Suspect [employer] with collaterals and supply demand mechanism of ischemia due to uncontrolled hypertension. Would recommend aggressive blood pressure management and antianginal regimen. If patient has persistent chest pain despite aggressive medical management, could consider complex [employer] of the diagonal branch however this is disease to the origin of the LAD and would likely carry a higher risk of complications. 3. May also consider physiologic assessment of RCA or LAD if concern of recurrent angina with stress testing or FFR.
[2019-10-16] MEDS ORDERED: hydrALAZINE HCL 20 MG/ML 1 ML VIAL IVP PRN (23:00)
[2019-10-17 04:55] LABS: Basophils # (A) 0.1 k/uL (0-0.2); Basophils % (A) 1 %; Eosinophils # (A) 0.2 k/uL (0-0.7); Eosinophils % (A) 2 %; HCT 43.1 % (34.0-46.0); HGB 14.2 gm/dL (11.4-16.0); Lymphocytes # (A) 2.7 k/uL (1.0-4.8); Lymphocytes % (A) 26 %; MCH 30.1 pg (25.0-35.0); MCHC 33.1 g/dL (31.0-37.0); Mean Platelet Volume 7.9; Monocytes # (A) 0.6 k/uL (0-1.0); Monocytes % (A) 6 %; Neutrophils # (A) 6.6 k/uL (1.3-7.7); Neutrophils % (A) 64 %; Platelet Count 223 k/uL (150-450); RBC 4.73 m/uL (3.80-5.40); RDW 12.5 % (11.5-15.5); WBC 10.3 k/uL (3.8-10.6)
[2019-10-17] MEDS: NITROGLYCERIN OINT 1 INCH/GM PACKET TOPICAL SCH ×4 (04:57→17:58)
[2019-10-17 06:48] LABS: African American GFR (CKD) >90 (>60 ml/min/1.73 sqM); Anion Gap 7 mmol/L; Blood Urea Nitrogen 12 mg/dL (7-17); Calcium 9.1 mg/dL (8.4-10.2); Carbon Dioxide 28 mmol/L (22-30); Chloride 102 mmol/L (98-107); Cholesterol 186 mg/dL (<200); Glucose 247 mg/dL (74-99); HDL Cholesterol 49 mg/dL (40-60); LDL Cholesterol,Calculated 91 mg/dL (0-99); Magnesium 1.9 mg/dL (1.6-2.3); Non-African American GFR(CKD) 84 (>60 ml/min/1.73 sqM); Potassium 4.1 mmol/L (3.5-5.1); Sodium 137 mmol/L (137-145); Triglycerides 228 mg/dL (<150)
[2019-10-17 06:51] LABS: Glucose,Whole Blood 255 mg/dL (75-99)
[2019-10-17] MEDS: INSULIN ASPART (NovoLOG) 100 UNIT/ML VIAL SQ SCH ×4 (06:54→20:11)
[2019-10-17] MEDS ORDERED: MORPHINE SULFATE 2 MG/ML SYRINGE IVP PRN (08:52)
[2019-10-17] MEDS ORDERED: ASPIRIN 325 MG TAB PO SCH (09:00)
[2019-10-17] MEDS: amLODIPine 5 MG TAB PO SCH (09:32)
[2019-10-17] MEDS: ASPIRIN 81 MG PO SCH (09:32)
[2019-10-17] MEDS: METOPROLOL TARTRATE 25 MG TAB PO SCH ×3 (09:32→20:10)
[2019-10-17] MEDS ORDERED: RX INFO: IV CONTRAST WAS GIVEN 1 EACH MISC MISCELLANE PRN (10:06)
--- NOTE | 2019-10-17 11:37 | PN ---
PROGRESS NOTE Danica is a 59-year-old lady with history of coronary artery disease status post prior angioplasty with stent placement of diagonal branch. She presented to hospital with persistent chest pain. She was evaluated by my associate, Dr. Ren, yesterday evening who was concerned with her chest pain and the patient was taken for an emergent cardiac catheterization. Her cardiac catheterization revealed an occluded diagonal branch with lnvs-do-joid collaterals. Dr. Chaidez attempted an angioplasty of the same. However, he was not able to wire the lesion and the angioplasty was aborted, thinking that the diagonal occlusion was chronic and will be managed medically. This morning, patient appears comfortable at rest, but is still complaining of chest pain that seemed to radiate to her back. Her troponins are not particularly elevated. Her tropes were from 0.01-0.03 and they are all within normal limits. EKG does not reveal acute ischemic changes. The patient's blood pressures are better controlled this morning. I am going to stop the IV nitroglycerin at this time and obtain a CT scan of the chest to rule out aortic dissection. PHYSICAL EXAM: She is comfortable at rest. Vital signs are stable. Chest exam reveals good air entry bilaterally. Heart exam reveals first and second heart sounds. No gallop. No murmur. Abdomen is soft, nontender. Exam of extremities did not reveal any edema. Peripheral pulses are felt. MEDICATIONS: Patient is currently on aspirin, Lipitor, Lopressor, nitroglycerin paste. I will increase the dose of Norvasc to 10 mg daily for optimal blood pressure controls. ASSESSMENT: 1. Persistent chest pain. 2. Coronary artery disease, status post prior angioplasty of diagonal branch with a chronically occluded diagonal on the most recent catheterization. 3. Hypertension. PLAN: Patient will continue with current medications. Obtain a CT chest. We will reassess her in the morning. MMODL / IJN: [id number] /
--- NOTE | 2019-10-17 11:46 | CT ---
EXAMINATION TYPE: CT chest w con DATE OF EXAM: 10/17/2019 COMPARISON: 09/20/2017 HISTORY: 51-year-old female rule out dissection, Chest pains TECHNIQUE: Contiguous axial scanning of the chest after the administration of 100 mL of Isovue 300. Coronal/sagittal reconstructions performed. CT DLP: 575.4mGycm. Automatic exposure control utilized for a dose reduction. FINDINGS: Heart normal size without pericardial effusion. Three-vessel coronary artery calcifications are prese nt. Proximal arch ectatic at 3.7 cm. Conventional arch vessel branching anatomy. Mild scattered prostatic calcifications within the aorta. No evidence for aortic dissection. No thoracic lymphadenopathy by CT size criteria. Some minimal 3 mm and smaller subpleural nodularity posterior right mid lung and peripheral left lowe r lobe remains unchanged. No consolidation or pleural effusion. Small hiatal hernia. There seems to be some mild circumferential wall thickening distal esophagus. Li kala borderline enlarged at 17.9 cm. Bones: Moderate degenerative disc disease throughout especially mid thoracic spine with exaggerated k yphosis. IMPRESSION: 1. Three-vessel coronary artery disease. 2. No evidence for aortic dissection. The proximal arch is ectatic at 3.7 cm without esther aneurysm. 3. Small hiatal hernia and mild circumferential wall thickening distal esophagus. Correlate for any s ymptoms of esophagitis. 4. Moderate degenerative disc disease in the thoracic spine.
[2019-10-17 11:48] LABS: Glucose,Whole Blood 259 mg/dL (75-99)
[2019-10-17 15:48] LABS: Hemoglobin A1C 11.7 % (4.0-6.0)
[2019-10-17 16:34] LABS: Glucose,Whole Blood 252 mg/dL (75-99)
--- NOTE | 2019-10-17 18:25 | P.PN ---
Subjective This is a pleasant 59 his old female with past medical history of coronary artery disease, status post stent placement, heart failure, diabetes mellitus, deep venous thrombosis, pulmonary embolism. she came because of high sugar when she checked it at home it was 334, also she had couple of chest pains at home today , it is central like something was sitting on her chest , and radiating to left arm and back with rating of 9/10 down currently to 4/10 associated with some lightheadedness and sob, but not any more she supposed to be on metformin but has not taking it for about two years , and she is not taking any other medication , she moved from [place] when she used to see a doctor there, she has an appointment with dr. morales on November 2019 she has history of three heart attacks before on , 09/2017 and 2018 and she used to see dr. navarro she has h/o of dvt/pe in 2015 , she took her anticoagulation for 2-3 months and then her doctor stopped them for her she denies smoking or alcohol or illicit drug On admission her blood pressure was 231/106, currently 152/70. Rest of vitals looks stable. Labs reviewed showing unremarkable CBC, INR, BMP. Liver enzymes are slightly elevated. With AST is 53 and ALT 55. Bilirubin is normal. Sugar was high on admission of 345, currently 293, her acetone is negative. Troponins 2 are negative with 0.014 and 0.0-1. Chest x-ray: No acute process. EKG showing normal sinus rhythm with no significant ST-T changes and prolonged QTC of 533. In the emergency room patient was started on heparin drip. Aspirin 324, nitroglycerin and insulin. Also received IV hydralazine and Ativan continue with heparin drip and aspirin. 10/17/19 Patient was transferred to the ICU after she had a cardiac cath yesterday showing Diffuse multivessel disease relatively unchanged from 2018, demand plunkett pply mismatches suspected from uncontrolled hypertension and painter rough recommended aggressive medical therapy with no need for angioplasty. This morning patient mental blistering drip was tapered down to 10 mcg/mL however she has persistent chest pain, morphine is provided. Walking Dragline Operator recommended CAT with IV scan of the chest which was unremarkable to explain the patient's symptoms. However we will keep close monitoring in the ICU. Blood pressure is better controlled today. Amlodipine was added to metoprolol by cartilage team, keep to monitor her blood pressure closely Review of Systems CONSTITUTIONAL: No fever, no malaise, no fatigue. HEENT: No recent visual problems or hearing problems. Denied any sore throat. CARDIOVASCULAR: No orthopnea, PND, no palpitations, no syncope. PULMONARY: No shortness of breath, no cough, no hemoptysis. GASTROINTESTINAL: No diarrhea, no nausea, no vomiting, no abdominal pain. Normoactive bowel sounds. NEUROLOGICAL: No headaches, no weakness, no numbness. Active Medications Generic Name Dose Route Start Last Admin Trade Name Freq PRN Reason Stop Dose Admin Amlodipine Besylate 10 mg 10/18/19 09:00 Norvasc PO DAILY ALHAJI Aspirin 81 mg 10/17/19 09:00 10/17/19 09:32 Aspirin PO 81 mg DAILY ALHAJI Administration Atorvastatin Calcium 80 mg 10/16/19 21:00 10/16/19 20:25 Lipitor PO 80 mg HS ALHAJI Administration Hydralazine HCl 10 mg 10/16/19 23:00 Apresoline IVP Q4HR PRN Blood Pressure - High Nitroglycerin/Dextrose 50 mg/ 250 mls @ 0 mls/hr 10/16/19 22:30 10/17/19 10:20 IV Solution IV 0 mcg/min .Q0M ALHAJI 0 mls/hr Titration Protocol Titrate Insulin Aspart 0 unit 10/16/19 17:30 10/17/19 17:11 Novolog SQ 6 unit ACHS ALHAJI Administration Protocol Metoprolol Tartrate 25 mg 10/17/19 09:00 10/17/19 17:11 Lopressor PO 25 mg TID ALHAJI Administration Miscellaneous Information 1 each 10/16/19 22:07 Rx Info: Iv Contrast Was Given MISCELLANE 10/18/19 22:08 DAILY PRN Per Protocol Miscellaneous Information 1 each 10/17/19 10:06 Rx Info: Iv Contrast Was Given MISCELLANE 10/19/19 10:07 DAILY PRN Per Protocol Morphine Sulfate 2 mg 10/17/19 08:52 10/17/19 09:31 Morphine Sulfate (Inj) IVP 2 mg Q4H PRN Administration Pain/Discomfort Nitroglycerin 0.4 mg 10/16/19 13:01 10/16/19 19:04 Nitrostat SUBLINGUAL 0.4 mg Q5M PRN Administration Chest Pain Nitroglycerin 1 inch 10/16/19 18:00 10/17/19 17:58 Nitro-Bid Oint TOPICAL 1 inch Q6HR ALHAJI Administration Objective - Vital Signs Vital signs: Vital Signs Temp 98 F 10/17/19 16:00 Pulse 80 10/17/19 18:00 Resp 11 L 10/17/19 18:00 BP 163/85 10/17/19 18:00 Pulse Ox 94 L 10/17/19 18:00 Intake & Output 10/16/19 10/17/19 10/17/19 18:59 06:59 18:59 Intake Total 240 249.5 60.25 Output Total 550 Balance 240 -300.5 60.25 Weight 98.3 kg 101 kg Intake: IV 160 50 0.9 50 Intake, IV Titration 89.5 10.25 Amount Nitroglycerin-D5w Pmx 50 89.5 10.25 mg In Dextrose/Water 1 250ml.bag @ Titrate IV . Q0M ALHAJI Rx#:[id number] Oral 240 Output: Urine 550 Other: Voiding Method Toilet # Voids 1 1 0 # Bowel Movements 1 - Exam GENERAL: The patient is alert and oriented x3, not in any acute distress. Well developed, well nourished. HEENT: Pupils are round and equally reacting to light. EOMI. No scleral icterus. No conjunctival pallor. Normocephalic, atraumatic. No pharyngeal erythema. No thyromegaly. CARDIOVASCULAR: S1 and S2 present. No murmurs, rubs, or gallops. PULMONARY: Chest is clear to auscultation, no wheezing or crackles. ABDOMEN: Soft, nontender, nondistended, normoactive bowel sounds. No palpable organomegaly. MUSCULOSKELETAL: No joint swelling or deformity. EXTREMITIES: No cyanosis, clubbing, or pedal edema. NEUROLOGICAL: Gross neurological examination did not reveal any focal deficits. SKIN: No rashes. no petechiae. - Labs CBC & Chem 7: 10/17/19 04:25 10/17/19 04:25 Labs: Abnormal Lab Results - Last 24 Hours (Table) 10/16/19 10/16/19 10/16/19 Range/Units 20:25 20:27 22:37 APTT 44.9 H (22.0-30.0) sec Glucose (74-99) mg/dL POC Glucose (mg/dL) 256 H 168 H (75-99) mg/dL Hemoglobin A1c (4.0-6.0) % Triglycerides (<150) mg/dL 10/17/19 10/17/19 10/17/19 Range/Units 04:25 04:25 06:49 APTT (22.0-30.0) sec Glucose 247 H (74-99) mg/dL POC Glucose (mg/dL) 255 H (75-99) mg/dL Hemoglobin A1c 11.7 H (4.0-6.0) % Triglycerides 228 H (<150) mg/dL 10/17/19 10/17/19 Range/Units 11:46 16:32 APTT (22.0-30.0) sec Glucose (74-99) mg/dL POC Glucose (mg/dL) 259 H 252 H (75-99) mg/dL Hemoglobin A1c (4.0-6.0) % Triglycerides (<150) mg/dL Assessment and Plan Assessment: Chest pain, angina secondary to a month supply mismatches from hypertensive urgency suspected , Hypertensive urgency Diabetes mellitus, with hyperglycemia non adherence and non compliance to therapy Prolonged QTC Hypertension Hyperlipidemia History of coronary artery disease status post stent Heart failure History of DVT and pulmonary embolism obese BMI 36 Plan: this is a pleasant 59 years old female who presents with chest pain. We'll reduce her troponin. Cardiology consult. Continue with metoprolol and Norvasc twice a day. Monitor blood pressure and is continue with blood pressure medication now. Continue with insulin sliding scale. Check hemoglobin A1c. Labs and medication were reviewed.. Continue same treatment. Continue with symptomatic treatment. Resume home medication. Monitor lytes and vitals. DVT and GI prophylaxis. Further recommendations of the clinical course of the patient DVT prophylaxis: heparin GI Prophylaxis: Pepcid PT/OT: Pending Prognosis is guarded
[2019-10-17 19:51] LABS: Glucose,Whole Blood 251 mg/dL (75-99)
[2019-10-17] MEDS: ATORVASTATIN 80 MG TAB PO SCH (20:13)
[2019-10-17 20:27] LABS: Glucose,Whole Blood 209 mg/dL (75-99)
[2019-10-17] MEDS ORDERED: INSULIN DETEMIR (LEVEMIR) 100 UNIT/ML SYR SQ SCH (21:00)
[2019-10-18] MEDS: NITROGLYCERIN OINT 1 INCH/GM PACKET TOPICAL SCH ×2 (00:18→06:44)
[2019-10-18] MEDS: HEPARIN SODIUM,PORCINE 5,000 UNIT/ML 1 ML VIAL SQ SCH ×3 (00:18→20:14)
[2019-10-18 04:47] LABS: Basophils # (A) 0.1 k/uL (0-0.2); Basophils % (A) 1 %; Eosinophils # (A) 0.2 k/uL (0-0.7); Eosinophils % (A) 2 %; HCT 39.6 % (34.0-46.0); HGB 13.1 gm/dL (11.4-16.0); Lymphocytes # (A) 2.9 k/uL (1.0-4.8); Lymphocytes % (A) 33 %; MCH 30.4 pg (25.0-35.0); MCHC 33.1 g/dL (31.0-37.0); MCV 91.7 fL (80.0-100.0); Mean Platelet Volume 8.2; Monocytes # (A) 0.6 k/uL (0-1.0); Monocytes % (A) 7 %; Neutrophils % (A) 56 %; Platelet Count 184 k/uL (150-450); RBC 4.32 m/uL (3.80-5.40); RDW 12.5 % (11.5-15.5); WBC 8.8 k/uL (3.8-10.6)
[2019-10-18 05:01] LABS: African American GFR (CKD) >90 (>60 ml/min/1.73 sqM); Anion Gap 5 mmol/L; Blood Urea Nitrogen 14 mg/dL (7-17); Calcium 8.9 mg/dL (8.4-10.2); Carbon Dioxide 22 mmol/L (22-30); Chloride 106 mmol/L (98-107); Glucose 211 mg/dL (74-99); Magnesium 1.9 mg/dL (1.6-2.3); Non-African American GFR(CKD) >90 (>60 ml/min/1.73 sqM); Sodium 133 mmol/L (137-145)
[2019-10-18 06:39] LABS: Glucose,Whole Blood 195 mg/dL (75-99)
[2019-10-18] MEDS: INSULIN ASPART (NovoLOG) 100 UNIT/ML VIAL SQ SCH ×4 (06:44→20:14)
[2019-10-18] MEDS: ASPIRIN 81 MG PO SCH (10:08)
[2019-10-18] MEDS: METOPROLOL TARTRATE 25 MG TAB PO SCH ×3 (10:08→20:14)
[2019-10-18] MEDS: amLODIPine 10 MG TAB PO SCH (10:08)
--- NOTE | 2019-10-18 10:14 | PN ---
PROGRESS NOTE Danica is a 59-year-old lady who is admitted to the hospital with severe uncontrolled hypertension and chest pain. She underwent a cardiac catheterization that was negative for coronary artery disease. I performed a CT scan of the chest that did not reveal any dissection. She is doing well this morning and is free of symptoms. Blood pressure is well controlled on Norvasc 10 mg daily, Lopressor 25 t.i.d. and nitroglycerin paste. I am going to remove the nitro paste today. If the blood pressure is well controlled, she can be discharged home on her current medications. If it is not, we will consider adding lisinopril 5-10 mg daily. From a cardiac standpoint, patient is stable for discharge, if we are able to arrange for her medications, as she is someone who does not have any prescription coverage. She has a Medicaid from [place]. PHYSICAL EXAMINATION: On exam, comfortable at rest. Heart rate is 60 beats per minute, blood pressure is 137/60, respiratory rate is 18. There is no jugular venous distention. Carotid upstroke is normal. There is no bruit. Chest exam reveals good air entry bilaterally. Heart exam reveals first and second heart sounds. An S4 is heard. Abdomen is soft. Exam of extremities did not reveal any edema. Peripheral pulses are felt. LAB: Show that the hemoglobin is 13.1, potassium is 4, creatinine is 0.59. ASSESSMENT: 1. Precordial chest pain, resolved. 2. Severe uncontrolled hypertension. The patient's blood pressure is better controlled. PLAN: Patient is stable for discharge. Arrange follow up with Dr. Ren, the primary sink maker, who saw her when she first came. MMODL / IJN: [id number] /
[2019-10-18 11:22] VITALS: BMI 36.5
[2019-10-18 12:51] LABS: Glucose,Whole Blood 253 mg/dL (75-99)
--- NOTE | 2019-10-18 16:44 | P.PN ---
Subjective This is a pleasant 59 his old female with past medical history of coronary artery disease, status post stent placement, heart failure, diabetes mellitus, deep venous thrombosis, pulmonary embolism. she came because of high sugar when she checked it at home it was 334, also she had couple of chest pains at home today , it is central like something was sitting on her chest , and radiating to left arm and back with rating of 9/10 down currently to 4/10 associated with some lightheadedness and sob, but not any more she supposed to be on metformin but has not taking it for about two years , and she is not taking any other medication , she moved from [place] when she used to see a doctor there, she has an appointment with dr. morales on November 2019 she has history of three heart attacks before on , 09/2017 and 2018 and she used to see dr. navarro she has h/o of dvt/pe in 2015 , she took her anticoagulation for 2-3 months and then her doctor stopped them for her she denies smoking or alcohol or illicit drug On admission her blood pressure was 231/106, currently 152/70. Rest of vitals looks stable. Labs reviewed showing unremarkable CBC, INR, BMP. Liver enzymes are slightly elevated. With AST is 53 and ALT 55. Bilirubin is normal. Sugar was high on admission of 345, currently 293, her acetone is negative. Troponins 2 are negative with 0.014 and 0.0-1. Chest x-ray: No acute process. EKG showing normal sinus rhythm with no significant ST-T changes and prolonged QTC of 533. In the emergency room patient was started on heparin drip. Aspirin 324, nitroglycerin and insulin. Also received IV hydralazine and Ativan continue with heparin drip and aspirin. 10/17/19 Patient was transferred to the ICU after she had a cardiac cath yesterday showing Diffuse multivessel disease relatively unchanged from 2018, demand plunkett pply mismatches suspected from uncontrolled hypertension and it program manager recommended aggressive medical therapy with no need for angioplasty. This morning patient mental blistering drip was tapered down to 10 mcg/mL however she has persistent chest pain, morphine is provided. Senior Accounts Payable Clerk recommended CAT with IV scan of the chest which was unremarkable to explain the patient's symptoms. However we will keep close monitoring in the ICU. Blood pressure is better controlled today. Amlodipine was added to metoprolol by cartilage team, keep to monitor her blood pressure closely 10/18/19 Patient is awake and alert, no chest pain or dyspnea today Cartilage team to the patient for discharge however her insulin is not covered by her insurance and I have distributed from Levemir/Lantus and into insulin 70:30, which is ordered as 20 units twice a day and presents tomorrow Discussed with staff Her blood pressure is controlled. Continue with aspirin Objective - Vital Signs Vital signs: Vital Signs Temp 98.0 F 10/18/19 12:53 Pulse 65 10/18/19 12:53 Resp 18 10/18/19 12:53 BP 154/93 10/18/19 12:53 Pulse Ox 96 10/18/19 12:53 Intake & Output 10/17/19 10/18/19 10/18/19 18:59 06:59 18:59 Intake Total 410.25 0 Output Total 0 Balance 410.25 0 Weight 99.5 kg 99.5 kg Intake: IV 400 0 0.9 400 0 Intake, IV Titration 10.25 Amount Nitroglycerin-D5w Pmx 50 10.25 mg In Dextrose/Water 1 250ml.bag @ Titrate IV . Q0M [facility] Rx#:[id number] Output: Urine 0 Other: Voiding Method Toilet Toilet # Voids 1 1 0 # Bowel Movements 1 - Exam GENERAL: The patient is alert and oriented x3, not in any acute distress. Well developed, well nourished. HEENT: Pupils are round and equally reacting to light. EOMI. No scleral icterus. No conjunctival pallor. Normocephalic, atraumatic. No pharyngeal erythema. No thyromegaly. CARDIOVASCULAR: S1 and S2 present. No murmurs, rubs, or gallops. PULMONARY: Chest is clear to auscultation, no wheezing or crackles. ABDOMEN: Soft, nontender, nondistended, normoactive bowel sounds. No palpable organomegaly. MUSCULOSKELETAL: No joint swelling or deformity. EXTREMITIES: No cyanosis, clubbing, or pedal edema. NEUROLOGICAL: Gross neurological examination did not reveal any focal deficits. SKIN: No rashes. no petechiae. - Labs CBC & Chem 7: 10/18/19 04:19 10/18/19 04:19 Labs: Abnormal Lab Results - Last 24 Hours (Table) 10/17/19 10/17/19 10/18/19 Range/Units 19:50 20:26 04:19 Sodium 133 L (137-145) mmol/L Glucose 211 H (74-99) mg/dL POC Glucose (mg/dL) 251 H 209 H (75-99) mg/dL 10/18/19 10/18/19 Range/Units 06:37 12:47 Sodium (137-145) mmol/L Glucose (74-99) mg/dL POC Glucose (mg/dL) 195 H 253 H (75-99) mg/dL Assessment and Plan Assessment: Chest pain, angina secondary to a month supply mismatches from hypertensive urgency suspected , Hypertensive urgency Diabetes mellitus, with hyperglycemia non adherence and non compliance to therapy Prolonged QTC Hypertension Hyperlipidemia History of coronary artery disease status post stent Heart failure History of DVT and pulmonary embolism obese BMI 36 Plan: this is a pleasant 59 years old female who presents with chest pain. We'll reduce her troponin. Cardiology consult. Continue with metoprolol and Norvasc twice a day. Monitor blood pressure and is continue with blood pressure medication now. Continue with insulin sliding scale. Check hemoglobin A1c. Labs and medication were reviewed.. Continue same treatment. Continue with symptomatic treatment. Resume home medication. Monitor lytes and vitals. DVT and GI prophylaxis. Further recommendations of the clinical course of the patient DVT prophylaxis: heparin GI Prophylaxis: Pepcid PT/OT: Pending Prognosis is guarded
[2019-10-18 17:12] LABS: Glucose,Whole Blood 212 mg/dL (75-99)
[2019-10-18 20:07] LABS: Glucose,Whole Blood 269 mg/dL (75-99)
[2019-10-18] MEDS: ATORVASTATIN 80 MG TAB PO SCH (20:14)
[2019-10-19 06:00] LABS: Glucose,Whole Blood 276 mg/dL (75-99)
[2019-10-19] MEDS: INSULIN ASPART (NovoLOG) 100 UNIT/ML VIAL SQ SCH ×4 (06:50→21:43)
[2019-10-19] MEDS ORDERED: INSULN ASP PRT/INSULIN ASPART 100 UNIT/ML 10 ML VIAL SQ SCH (07:30)
[2019-10-19] MEDS ORDERED: INSULIN NPH 300 UNIT/3 ML VIAL SQ SCH (09:00)
[2019-10-19] MEDS: HEPARIN SODIUM,PORCINE 5,000 UNIT/ML 1 ML VIAL SQ SCH ×2 (09:53→21:43)
[2019-10-19] MEDS: METOPROLOL TARTRATE 25 MG TAB PO SCH ×3 (09:53→21:41)
[2019-10-19] MEDS: ASPIRIN 81 MG PO SCH (09:53)
[2019-10-19] MEDS: amLODIPine 10 MG TAB PO SCH (09:53)
[2019-10-19] MEDS ORDERED: ACETAMINOPHEN TAB 325 MG TAB PO PRN (10:50)
[2019-10-19 11:58] LABS: Glucose,Whole Blood 236 mg/dL (75-99)
[2019-10-19] MEDS ORDERED: lisinopriL 20 MG TAB PO SCH (12:00)
[2019-10-19] MEDS: hydrALAZINE HCL 25 MG TAB PO SCH ×2 (12:54→21:41)
[2019-10-19] MEDS: LOSARTAN 50 MG TAB PO SCH (15:45)
[2019-10-19 16:44] LABS: Glucose,Whole Blood 231 mg/dL (75-99)
[2019-10-19] MEDS: INSULN ASP PRT/INSULIN ASPART 100 UNIT/ML 10 ML VIAL SQ SCH (17:45)
[2019-10-19 20:00] LABS: Glucose,Whole Blood 215 mg/dL (75-99)
--- NOTE | 2019-10-19 21:12 | P.PN ---
Subjective This is a pleasant 59 his old female with past medical history of coronary artery disease, status post stent placement, heart failure, diabetes mellitus, deep venous thrombosis, pulmonary embolism. she came because of high sugar when she checked it at home it was 334, also she had couple of chest pains at home today , it is central like something was sitting on her chest , and radiating to left arm and back with rating of 9/10 down currently to 4/10 associated with some lightheadedness and sob, but not any more she supposed to be on metformin but has not taking it for about two years , and she is not taking any other medication , she moved from [place] when she used to see a doctor there, she has an appointment with dr. morales on November 2019 she has history of three heart attacks before on , 09/2017 and 2018 and she used to see dr. navarro she has h/o of dvt/pe in 2015 , she took her anticoagulation for 2-3 months and then her doctor stopped them for her she denies smoking or alcohol or illicit drug On admission her blood pressure was 231/106, currently 152/70. Rest of vitals looks stable. Labs reviewed showing unremarkable CBC, INR, BMP. Liver enzymes are slightly elevated. With AST is 53 and ALT 55. Bilirubin is normal. Sugar was high on admission of 345, currently 293, her acetone is negative. Troponins 2 are negative with 0.014 and 0.0-1. Chest x-ray: No acute process. EKG showing normal sinus rhythm with no significant ST-T changes and prolonged QTC of 533. In the emergency room patient was started on heparin drip. Aspirin 324, nitroglycerin and insulin. Also received IV hydralazine and Ativan continue with heparin drip and aspirin. 10/17/19 Patient was transferred to the ICU after she had a cardiac cath yesterday showing Diffuse multivessel disease relatively unchanged from 2018, demand plunkett pply mismatches suspected from uncontrolled hypertension and odd ticket clerk recommended aggressive medical therapy with no need for angioplasty. This morning patient mental blistering drip was tapered down to 10 mcg/mL however she has persistent chest pain, morphine is provided. [employer] Senior Officer recommended CAT with IV scan of the chest which was unremarkable to explain the patient's symptoms. However we will keep close monitoring in the ICU. Blood pressure is better controlled today. Amlodipine was added to metoprolol by cartilage team, keep to monitor her blood pressure closely 10/18/19 Patient is awake and alert, no chest pain or dyspnea today Cartilage team to the patient for discharge however her insulin is not covered by her insurance and I have distributed from Levemir/Lantus and into insulin 70:30, which is ordered as 20 units twice a day and presents tomorrow Discussed with staff Her blood pressure is controlled. Continue with aspirin 10/19/19 Army Senior Officer cleared the patient for discharge today and she is clinically stable however earlier she had some lightheadedness and chest pain for short time Her blood pressure is uncontrolled and he sugar still on the high side, place honorio morris on hydralazine 25 mg twice a day and change lisinopril to losartan 50 mg daily upon patient request as lisinopril causes her to cough Also increase her NovoLog 70:30 from 20 up to 25 units twice a day Possible discharge tomorrow if she improves Objective - Vital Signs Vital signs: Vital Signs Temp 98 F 10/19/19 15:40 Pulse 66 10/19/19 15:40 Resp 16 10/19/19 15:40 BP 148/81 10/19/19 15:40 Pulse Ox 98 10/19/19 15:40 Intake & Output 10/18/19 10/19/19 10/19/19 18:59 06:59 18:59 Intake Total 350 180 500 Output Total 0 Balance 350 180 500 Weight 99.5 kg 99.1 kg Intake: Oral 350 180 500 Output: Urine 0 Other: Voiding Method Toilet Toilet Toilet # Voids 1 1 2 - Exam GENERAL: The patient is alert and oriented x3, not in any acute distress. Well developed, well nourished. HEENT: Pupils are round and equally reacting to light. EOMI. No scleral icterus. No conjunctival pallor. Normocephalic, atraumatic. No pharyngeal erythema. No thyromegaly. CARDIOVASCULAR: S1 and S2 present. No murmurs, rubs, or gallops. PULMONARY: Chest is clear to auscultation, no wheezing or crackles. ABDOMEN: Soft, nontender, nondistended, normoactive bowel sounds. No palpable organomegaly. MUSCULOSKELETAL: No joint swelling or deformity. EXTREMITIES: No cyanosis, clubbing, or pedal edema. NEUROLOGICAL: Gross neurological examination did not reveal any focal deficits. SKIN: No rashes. no petechiae. - Labs CBC & Chem 7: 10/18/19 04:19 10/18/19 04:19 Labs: Abnormal Lab Results - Last 24 Hours (Table) 10/18/19 10/19/19 10/19/19 Range/Units 19:56 05:56 11:57 POC Glucose (mg/dL) 269 H 276 H 236 H (75-99) mg/dL 10/19/19 Range/Units 16:42 POC Glucose (mg/dL) 231 H (75-99) mg/dL Assessment and Plan Assessment: Chest pain, angina secondary to a month supply mismatches from hypertensive urgency suspected , Hypertensive urgency Diabetes mellitus, with hyperglycemia non adherence and non compliance to therapy Prolonged QTC Hypertension Hyperlipidemia History of coronary artery disease status post stent Heart failure History of DVT and pulmonary embolism obese BMI 36 Plan: this is a pleasant 59 years old female who presents with chest pain. We'll reduce her troponin. Cardiology consult. Continue with metoprolol and Norvasc twice a day. Monitor blood pressure and is continue with blood pressure medication now. Continue with insulin sliding scale. Check hemoglobin A1c. Labs and medication were reviewed.. Continue same treatment. Continue with symptomatic treatment. Resume home medication. Monitor lytes and vitals. DVT and GI prophylaxis. Further recommendations of the clinical course of the patient DVT prophylaxis: heparin GI Prophylaxis: Pepcid PT/OT: Pending Prognosis is guarded
[2019-10-19] MEDS: ATORVASTATIN 80 MG TAB PO SCH (21:41)
--- NOTE | 2019-10-20 00:55 | PN ---
PROGRESS NOTE Danica is a 59-year-old lady who was admitted to hospital with severe uncontrolled hypertension and unstable angina underwent cardiac catheterization did not have significant obstructive CAD. She has been doing fairly well, complained of an episode of chest discomfort this morning that is sharp, atypical. She is currently on aspirin, Norvasc and Lopressor. Blood pressure is poorly controlled. Due to this, I am adding lisinopril 20 mg daily. From cardiac standpoint, she is stable for discharge. Physical exam is benign, unremarkable and unchanged. She can be followed up in the office with Dr. Ren. MMODL / IJN: [id number] /
[2019-10-20 06:12] LABS: Glucose,Whole Blood 191 mg/dL (75-99)
[2019-10-20] MEDS: INSULIN ASPART (NovoLOG) 100 UNIT/ML VIAL SQ SCH ×2 (06:39→13:08)
[2019-10-20] MEDS: INSULN ASP PRT/INSULIN ASPART 100 UNIT/ML 10 ML VIAL SQ SCH (06:39)
[2019-10-20] MEDS: amLODIPine 10 MG TAB PO SCH (08:34)
[2019-10-20] MEDS: ASPIRIN 81 MG PO SCH (08:34)
[2019-10-20] MEDS: hydrALAZINE HCL 25 MG TAB PO SCH (08:34)
[2019-10-20] MEDS: LOSARTAN 50 MG TAB PO SCH (08:34)
[2019-10-20] MEDS: HEPARIN SODIUM,PORCINE 5,000 UNIT/ML 1 ML VIAL SQ SCH (08:34)
[2019-10-20] MEDS: METOPROLOL TARTRATE 25 MG TAB PO SCH (08:34)
--- NOTE | 2019-10-20 08:57 | ECHOF ---
Referral Reason:chest pain MEASUREMENTS -------- HEIGHT: 165.1 cm WEIGHT: 98.0 kg BP: 166/80 RVIDd: 3.5 cm (< 3.3) IVSd: 1.5 cm (0.6 - 1.1) LVIDd: 3.2 cm (3.9 - 5.3) LVPWd: 1.5 cm (0.6 - 1.1) IVSs: 1.8 cm LVIDs: 2.1 cm LVPWs: 2.3 cm LAESV Index (A-L): 23.67 ml/m Ao Diam: 3.4 cm (2.0 - 3.7) AV Cusp: 2.1 cm (1.5 - 2.6) MV EXCURSION: 11.800 mm (> 18.000) MV EF SLOPE: 91 mm/s (70 - 150) EPSS: 0.5 cm MV E Horacio: 0.81 m/s MV DecT: 156 ms MV A Horacio: 1.04 m/s MV E/A Ratio: 0.78 AV maxP.20 mmHg AV meanP.58 mmHg AR PHT: 431 ms RAP: 5.00 mmHg RVSP: 27.28 mmHg FINDINGS -------- This was a technically difficult study with suboptimal parasternal views. The left ventricular size is normal. There is moderate concentric left ventricular hypertrophy. O verall left ventricular systolic function is low-normal with, an EF between 50 - 55 %. Mitral Doppl er inflow pattern suggests diastolic filling abnormality 14.51. Apical lateral LV wall motion is hy pokinetic. Apical inferior LV wall motion is hypokinetic. Apical septum LV wall motion is hypok inetic. The right ventricle is mildly enlarged. Normal LA size by volume 22+/-6 ml/m2. The right atrial size is normal. 5.0mg of Lumason was utilized for enhancement of images Interatrial and interventricular septum intact. The aortic valve is trileaflet and appears structurally normal. Trace amount of aortic regurgitatio n. There is no evidence of aortic stenosis. Mild mitral regurgitation is present. Mild tricuspid regurgitation present. There is no evidence of pulmonary hypertension. The right v entricular systolic pressure, as measured by Doppler, is 27.28mmHg. There is no pulmonic regurgitation present. The aortic root size is normal. IVC Not well visulized. There is no pericardial effusion. CONCLUSIONS -------- 1. The left ventricular size is normal. 2. There is moderate concentric left ventricular hypertrophy. 3. Overall left ventricular systolic function is low-normal with, an EF between 50 - 55 %. 4. Mitral Doppler inflow pattern suggest diastolic filling abnormality 14.51. 5. Apical lateral LV wall motion is hypokinetic. 6. Apical inferior LV wall motion is hypokinetic. 7. Apical septum LV wall motion is hypokinetic. 8. The right ventricle is mildly enlarged. 9. Trace amount of aortic regurgitation. 10. Mild mitral regurgitation is present. 11. Mild tricuspid regurgitation present. CLOTH BLEACHING SUPERVISOR: Gunjan Bonilla RDCS
[2019-10-20] MEDS ORDERED: LOSARTAN 50 MG TAB PO SCH (09:00)
--- NOTE | 2019-10-20 09:13 | P.DS ---
Providers Date of admission: 10/16/19 13:01 Attending physician: Keven Rose MD Consults: 10/16/19 13:01 Consult Physician Urgent Consulting Provider: [facility] Consult Reason/Comments: Chest pain, hypertensive urgency Do you want consulting provider notified?: Yes Primary care physician: Stated None Hospital Course: Diagnoses: Chest pain, angina secondary to a demand supply mismatches from hypertensive urgency Hypertensive urgency, controlled Diabetes mellitus, with hyperglycemia, better control non adherence and non compliance to therapy , patient is counseled Prolonged QTC Hypertension Hyperlipidemia History of coronary artery disease status post stent Heart failure History of DVT and pulmonary embolism obese BMI 36 Hospital course: This is a pleasant 59 his old female with past medical history of coronary artery disease, status post stent placement, heart failure, diabetes mellitus, deep venous thrombosis, pulmonary embolism. she came because of high sugar when she checked it at home it was 334, also she had couple of chest pains at home .Patient was transferred to the ICU after she had a cardiac cath showing Diffuse multivessel disease relatively unchanged from 2018, demand supply mismatches suspected from uncontrolled hypertension and behavioral instructor recommended aggressive medical therapy with no need for angioplasty. She still had persistent chest pain which is improved with controlling her blood pressure Patient does not have insurance coverage for insulin so it was switched to NovoLog 70:30 at 25 units twice a day Eventually her blood pressure is controlled, her sugars better controlled and she shouldn't is agreeable for the patient she is going to have after she discussed the situation with the elementary school social worker and as per my conversation with the elementary school social worker as well. On the day of discharge she has no symptoms of chest pain or dyspnea, no abdominal pain, no change in urine or bowel habits. No fever Patient was cleared for discharge by behavioral instructor Problems and management plan were discussed with the patient and he verbalized understanding and acceptance Patient was found stable and can be discharged home however he needs follow-up as an outpatient. Patient was instructed to follow up with PCP with the [facility] within one week and patient agrees.she states she will go to [place] where she lives, Also patient was instructed to follow up with Dr. navarro her behavioral instructor in 1 week and she agrees to call and make her own appointments Also provided Gen: patient is a AAOx3, no distress CVS: S1-S2, RRR, no murmur Lungs: B/L CTA, no wheezing Abdomen: soft, no distention, no tenderness, positive bowel sounds Extremity: no leg edema or induration Time spent more than 35 minutes Plan - Discharge Summary Discharge Rx Participant: No New Discharge Prescriptions: New Aspirin 81 mg PO DAILY #30 chew Losartan [Cozaar] 50 mg PO DAILY #30 tab Atorvastatin [Lipitor] 80 mg PO HS #30 tab Metoprolol Tartrate [Lopressor] 25 mg PO TID #60 tab Nitroglycerin Sl Tabs [Nitrostat] 0.4 mg SUBLINGUAL Q5M PRN #30 tab PRN Reason: Chest Pain amLODIPine [Norvasc] 10 mg PO DAILY #30 tab Insuln Asp Prt/Insulin Aspart [NovoLOG MIX 70-30 VIAL] 25 unit SQ AC-BID #1 vial Discharge Medication List Aspirin 81 mg PO DAILY #30 chew 10/20/19 [Rx] Atorvastatin [Lipitor] 80 mg PO HS #30 tab 10/20/19 [Rx] Insuln Asp Prt/Insulin Aspart [NovoLOG MIX 70-30 VIAL] 25 unit SQ AC-BID #1 vial 10/20/19 [Rx] Losartan [Cozaar] 50 mg PO DAILY #30 tab 10/20/19 [Rx] Metoprolol Tartrate [Lopressor] 25 mg PO TID #60 tab 10/20/19 [Rx] Nitroglycerin Sl Tabs [Nitrostat] 0.4 mg SUBLINGUAL Q5M PRN #30 tab 10/20/19 [Rx] amLODIPine [Norvasc] 10 mg PO DAILY #30 tab 10/20/19 [Rx] Follow up Appointment(s)/Referral(s): [facility] MD [STAFF PHYSICIAN] - 1 Week None,Stated [Primary Care Provider] - 1-[facility] - As Needed Discharge Disposition: HOME SELF-CARE
--- NOTE | 2019-10-20 10:30 | CDI ---
Documentation Clarification Form Date: 10/20/2019 CDS: Cynthia Baires RN, CCDS Admit Date: 10/16/2019 Patient Name: Danica Jackson [id number] ATTENTION: The Clinical Documentation Specialists (CDI) and [facility] Coding Staff appreciate your assistance in clarifying documentation. Please respond to the clarification below the line at the bottom and electronically sign. The CDI & [facility] Coding staff will review the response and follow-up if needed. Please note: Queries are made part of the Legal Health Record. If you have any questions, please contact the author of this message via ITS. Dr. Carmelo Hilton MD [employer] SYSTEM DEVELOPMENT ENGINEER with collaterals and supply demand mechanism of ischemia due to uncontrolled hypertension. Documented in the Cardiac Cath Procedure Note 10/15 Patient History/Risk Factors: 59-year-old female presents to the ED with chest pain radiating to left arm and back 10/21. Medical History: CAD, Angina, DM and DC Clinical Indicators: Troponin: 10/16/19 0.014; 0.021; 0.024; 0.027 10/17/19 0.300 10/16/19 11:48 EKG Results: Normal sinus rhythm, voltage criteria for left ventricular hypertrophy, cannot rule out Septal infarct, age undetermined. 10/16/19 18:48 EKG Normal sinus rhythm, anteroseptal infarct, age undetermined. ECHO 10/15: There is moderate concentric left ventricular hypertrophy. Overall left ventricular systolic function is low-normal with, an EF between 50-55% 10/18 your progress note. She is currently on aspirin, Norvasc and Lopressor. Blood pressure is poorly controlled. Due to this, I am adding lisinopril 20mg daily Treatment: 10/15 Cardiac Catheterization; 10/15 Heparin iv; Apresoline Ivp x2; Apresoline Iv Prn; Apresoline po bid; Lopressor 25mg po bid; Nitro bind oint x1, Nitrostat prn, 0.9ns 1L bolus, Nitroglycerin Ivpb d/c 10/16; 10/18 Cozaar 50mg po daily d/c 10/19 In your professional opinion, can you please clarify the clinical significance demand ischemia: Type 2 DC secondary to demand ischemia in the setting of uncontrolled hypertension. Type 2 DC secondary to demand ischemia (please specify) Type 2 DC ruled out Unable to determine Other Condition, please specify (Last Revision: February 2019) unable to determinbe MTDD
--- NOTE | 2019-10-20 12:02 | P.PN ---
Subjective Progress Note Date: 10/20/19 CHIEF COMPLAINT: Chest pain HISTORY OF PRESENT ILLNESS: Patient examined this morning at the bedside. She is status post cardiac catheterization with Dr. Chaidez. She denies chest pain. Denies shortness of breath. Vital signs are stable. PHYSICAL EXAM: VITAL SIGNS: Reviewed. GENERAL: Well-developed in no acute distress. NECK: Supple. No JVD or thyromegaly LUNGS: Respirations even and unlabored. Lungs essentially clear to auscultation bilaterally. HEART: Regular rate and rhythm. S1 and S2 heard. EXTREMITIES: Normal range of motion. No clubbing or cyanosis. Peripheral pulses intact. No lower extremity edema ASSESSMENT: Chest pain, status post cardiac cath Hypertension History of coronary artery disease with previous stenting of the diagonal vessel PLAN: Stable for discharge home today from a cardiac standpoint. Continue current cardiac medications. Patient to follow up with Dr. Marino outpatient. Nurse practitioner note has been reviewed by physician. Signing provider agrees with the documented findings, assessment, and plan of care. Objective - Vital Signs Vital signs: Vital Signs Temp 98.5 F 10/20/19 08:00 Pulse 80 10/20/19 08:00 Resp 14 10/20/19 11:49 BP 178/88 10/20/19 08:00 Pulse Ox 98 10/20/19 08:00 Intake & Output 10/19/19 10/20/19 10/20/19 18:59 06:59 18:59 Intake Total 500 240 720 Output Total 0 Balance 500 240 720 Weight 99.7 kg Intake: Oral 500 240 720 Output: Urine 0 Other: Voiding Method Toilet Toilet Toilet # Voids 2 2 2 # Bowel Movements 1 - Labs CBC & Chem 7: 10/18/19 04:19 10/18/19 04:19 Labs: Abnormal Lab Results - Last 24 Hours (Table) 10/19/19 10/19/19 10/19/19 Range/Units 11:57 16:42 19:56 POC Glucose (mg/dL) 236 H 231 H 215 H (75-99) mg/dL 10/20/19 Range/Units 06:05 POC Glucose (mg/dL) 191 H (75-99) mg/dL
[2019-10-20 12:17] LABS: Glucose,Whole Blood 212 mg/dL (75-99)
[2019-10-20 15:41] VITALS: BP 135/77; PULSE 88; RESP 16; TEMP 98
--- NOTE | 2019-10-22 06:29 | CDI ---
Documentation Clarification Form Date: 10/22/2019 From: Stalin Marino Phone: If you have a question about this query, please contact Stacie Howell, Rubber Compounder Supervisor at [phone] between 8am and 5pm. Admit Date: 10/16/2019 Discharge Date: 10/20/2019 Patient Name: Danica Jackson Visit Number: [id number] ATTENTION: The Clinical Documentation Specialists (CDI) and [facility] Coding Staff appreciate your assistance in clarifying documentation. Please respond to the clarification below the line at the bottom and electronically sign. The CDI & [facility] Coding staff will review the response and follow-up if needed. Please note: Queries are made part of the Legal Health Record. If you have any questions, please contact the author of this message via ITS. Dear Keven Abreu MD., CHF is documented in H&P Note as hx of Heart failure. Documented in throughout medical record as Heart failure. History/Risk Factors:obesity, CAD, HTN, Anxiety VS/Pulse OX: 10/16/19 16:00 96.6 F L 77 16 152/70 98 Echocardiogram Results:Overall left ventricular systolic function is low-normal with, an EF between 50 - 55 %. Chest X Ray: No acute cardiopulmonary process. Treatment: Aspirin 81 mg , Atorvastatin, Losartan [Cozaar) In your professional opinion, can you please clarify the acuity and type of CHF if known? Systolic Heart Failure: Chronic Diastolic Heart Failure: Chronic Unable to Determine Other, please specify Unable to Determine MTDD
== END 2019-10-20 13:44 | disposition home or self-care (01) | DRG 287 ==
LOC: EC 11:42 → 3SCARD 13:01 → 2SICU 22:17 → 3SCARD 10-18 10:35
PROVIDERS: ADMIT Internal Medicine; ATTEND Internal Medicine
PROC: 4A023N7 Measurement of Cardiac Sampling and Pressure, Left Heart, Percutaneous Approach (ICD-10-PCS; principal; 2019-10-16 21:12)
PROC: B2111ZZ Fluoroscopy of Multiple Coronary Arteries using Low Osmolar Contrast (ICD-10-PCS; principal; 2019-10-16 21:12)
DX: I25.110 Atherosclerotic heart disease of native coronary artery with unstable angina pectoris (principal); I16.0 Hypertensive urgency; E78.5 Hyperlipidemia, unspecified; I11.0 Hypertensive heart disease with heart failure; M19.90 Unspecified osteoarthritis, unspecified site; M06.9 Rheumatoid arthritis, unspecified; E66.9 Obesity, unspecified; F51.04 Psychophysiologic insomnia; I25.82 Chronic total occlusion of coronary artery; F31.9 Bipolar disorder, unspecified; Z79.4 Long term (current) use of insulin; F41.9 Anxiety disorder, unspecified; E11.65 Type 2 diabetes mellitus with hyperglycemia; E11.40 Type 2 diabetes mellitus with diabetic neuropathy, unspecified; G35 Multiple sclerosis; I50.9 Heart failure, unspecified; M94.0 Chondrocostal junction syndrome [Tietze]; E11.51 Type 2 diabetes mellitus with diabetic peripheral angiopathy without gangrene; I25.2 Old myocardial infarction; Z86.711 Personal history of pulmonary embolism; Z88.8 Allergy status to other drugs, medicaments and biological substances; Z68.36 Body mass index [BMI] 36.0-36.9, adult; Z86.718 Personal history of other venous thrombosis and embolism; Z90.89 Acquired absence of other organs; Z90.49 Acquired absence of other specified parts of digestive tract; Z98.51 Tubal ligation status; Z98.890 Other specified postprocedural states; Z82.0 Family history of epilepsy and other diseases of the nervous system; Z91.19 Patient's noncompliance with other medical treatment and regimen; Z95.5 Presence of coronary angioplasty implant and graft; Z79.82 Long term (current) use of aspirin; Z79.899 Other long term (current) drug therapy
CPT/HCPCS: 36415; 71046; 71260; 80048; 80053; 80061; 82009; 83036; 83735; 84484; 85025; 85610; 85730; 92920; 93005; 93306; 93454; 96361; 96374; 96375; 99285